=== PATIENT | female | born 1955 | race Caucasian/White ===

== ENCOUNTER 2024-02-14 13:05 | Outpatient (AMB) | payer MEDICARE, MEDICAID, SELFPAY ==
--- NOTE | 2024-02-14 13:34 | MHC.OFFVIS ---
Vital Signs 02/14/24 13:35 Height 5 ft 2.5 in Weight 231 lb 4 oz BMI 41.6 BP 128/78 Blood Pressure Location Rt brachial Position Sitting Pulse 89 Pulse Source Pulse Oximeter Pulse Oximetry (%) 96 Oxygen Delivery Method Room Air Intake Visit Reasons: osteoarthristis Allergies atorvastatin Allergy (Mild, Verified 02/14/24 13:23) fluid retention erythromycin base Allergy (Mild, Verified 02/14/24 13:23) Stomach Upset lactose Allergy (Mild, Verified 02/14/24 13:23) Stomach Upset latex Allergy (Mild, Verified 02/14/24 13:23) Itching Sulfa (Sulfonamide Antibiotics) Allergy (Mild, Verified 02/14/24 13:23) Nausea zolpidem [From Ambien] Allergy (Mild, Verified 02/14/24 13:23) Unknown house dust Allergy (Unknown, Verified 02/14/24 13:23) Unknown HPI HPI osteoarthristis: Details: Her pain at this time is controlled. She has history of osteoarthritis, trochanteric bursitis and fibromyalgia. [facility]LY [facility], [facility]1983 Medical History (Updated 02/14/24 @ 21:56 by Lewis Schroeder MD) Osteoarthritis Fibromyalgia Epicondylitis, lateral Bilateral carpal tunnel syndrome Memory deficit Varicose veins of both lower extremities Dyslipidemia LVH (left ventricular hypertrophy) Bilateral carotid artery stenosis Obesity Surgical History H/O left breast biopsy Hx of tonsillectomy H/O: knee surgery H/O cystoscopy Review of Systems Const All systems reviewed & are unremarkable except as noted in HPI and below Physical Exam Vital Signs: Last Vital Signs Pulse 89 02/14/24 13:35 BP 128/78 02/14/24 13:35 Pulse Ox 96 02/14/24 13:35 Oxygen Delivery Method Room Air 02/14/24 13:35 BMI result Body Mass Index 41.6 Const Other: General: Comfortable CVS: RRR Respiratory: clear to auscultation bilaterally. Good respiratory effort Skin: No lesions seen MSK: Heberden's nodes present. No synovitis. No tenderness. Bilateral trochanteric bursitis found. Good range of motion of upper extremities and lower extremities. Assessment & Plan Assessment & Plan (1) Trochanteric bursitis of both hips: Comment: Pain is controlled Code(s): M70.61 - Trochanteric bursitis, right hip; M70.62 - Trochanteric bursitis, left hip Category: Medical Plan: She will call office if she has constant pain from trochanteric bursitis requiring cortisone injection Return to clinic in 3 months [facility]ing [facility] Medications: New levothyroxine (Synthroid) 100 mcg PO DAILY 90 tabs 0RF zinc acetate (Galzin) 50 mg PO DAILY 30 caps 0RF famotidine (Pepcid) 20 mg PO DAILY 30 tabs 0RF Coding Level of Care Code Est Pt Level 3 (49026) Complex EM visit Add On G2211 Diagnoses Trochanteric bursitis of both hips M70.61; M70.62
[2024-02-14 13:35] VITALS: BP 128/78; PULSE 89; O2SAT 96; BMI 41.6
== END 2024-02-14 14:41 | disposition home or self-care (01) ==
PROVIDERS: PCP Physician Assistant Medical; Visit Provider Internal Medicine Rheumatology
DX: M70.61 Trochanteric bursitis, right hip (principal); M70.62 Trochanteric bursitis, left hip
CPT/HCPCS: 99213; G2211

== ENCOUNTER → 2024-02-14 13:05 | Outpatient (BNVA) | payer MEDICARE, MEDICAID, SELFPAY | PROVIDERS: PCP Physician Assistant Medical; Visit Provider Internal Medicine Rheumatology | DX: M70.61 Trochanteric bursitis, right hip (principal); M70.62 Trochanteric bursitis, left hip | CPT/HCPCS: 99212 ==

== ENCOUNTER 2024-05-14 14:28 | Outpatient (REF) | payer MEDICARE, MEDICAID, SELFPAY ==
[2024-05-14 18:35] LABS: MANUAL DIFF FLAG NO
--- OUTSIDE RECORDS SUMMARY | 2024-05-14 18:42 | XMS_ITS | Encounter Summary ---
Author Organization [facility] Address [address] [place] [address] Care Team Providers Care Band Cutting Machine Operator Name Role Phone Sydnee Miranda DO Primary Care Pro vider Unavailable Jonas Cano MD Primary Care Provider Unavailab Francisco Mobley MD Unavailable [phone] Sekou Griffith MD Primary Care Provider Jakub Wilson MD, PHD Unavailable Unava ilJuan Starkey PA-C Unavailable [phone] Padmaja Arenas MD Primary Care Provider [phone] Reason for Referral * EXTERNAL (Routine) - Authorized/Booked Specialty Diagnoses / Procedures Referred By Contshanthi t Referred To Contact Physical Therapy Diagnoses Spondylosis of cervical region without myelopathy or radiculopathy Primary osteoarthritis of both knees Procedures REFERRAL TO PHYSICAL THERAPY Jone Maloney MD [address] [place] [address] [facility]li[facility] Referral ID Status Reason Start Date Expiration Date V isits Requested Visits Authorized [id number] Authorized/B ooked 12/17/2019 02/16/2020 1 1 Reason for Visit * Reason Onset Date Comments Technology And Engineering Teacher Feedback 12/17/2019 [facility] Encounter Details Date Type Department Care Team Description 12/17/2019 Telephone [place] [address] Jone Maloney MD Technology And Engineering Teacher Feedback ([facility]) Social History Tobacco Use Types Packs/Day Years Used Date Smoking Tobacco: Former Smokeless Tobacco: Never Comments:quit at age 19, uns ure of exact date Alcohol Use Standard Drinks/Week Comments No 0 (1 standard drink = 0.6 oz pur e alcohol) Sex Assigned at Date Recorded Not on file Job Start Date Occupation Industry Not on file Not on file Not on file documented as of this encounter Miscellaneous Notes * Telephone Encounter - Juliana Janis - 12/17/2019 11:41 AM EST Please review this patients new referral request. The referral has been pended. Please complete thefollowing: If approved> sign order If denied>please give instructions and route to your practice nursing pool. Practice nurse should inform referrals and the patient if denied. ([facility] looking for updated order) documented in this encounter Plan of Treatment Not on file documented as of this encounter Visit Diagnoses Diagnosis Spondylosis of cervical region without myelopathy or radiculopathy- Primary Cervical spondylosis without myelopathy Primary osteoarthritis of both knees Primary localized osteoarthrosis, lower leg documented in this encounter Care Teams Band Cutting Machine Operator Relationship Specialty Start Date End Date Sydnee Miranda DO PCP - General Internal Medicine 12/25/17 06/16/20 Jonas Cano MD PCP - General Internal Medicine 06/17/20 10/05/20 Sekou Griffith MD PCP - General Internal Medicine 10/06/20 08/12/21 Padmaja Arenas MD [address] [address] PCP - General Internal Medicine 08/13/21 Francisco Winter MD Specialist Cardiology 09/29/20 Jakub Akers MD, PHD Specialist Neurosurgery 03/23/21 Juan Hammond PA-C [address] [address] Specialist Neurosurgery 03/23/21 documented as of this encounter
--- OUTSIDE RECORDS SUMMARY | 2024-05-14 18:42 | XMS_ITS | Encounter Summary ---
Author Organization [facility] Address [address] [place] [address] Care Team Providers Care C.O.D. 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 Audit Clerk Relationship Specialty Start Date End Date Sydnee Miranda DO PCP - General Internal Medicine 11/08/13 07/24/17 Jonas Cano MD PCP - General Internal Medicine 07/25/17 11/14/17 Virginia Gillis MD PCP - General Internal Medicine 11/15/17 12/24/17 Sydnee Miranda DO PCP - General Internal Medicine 12/25/17 06/16/20 Jonas Cano MD PCP - General Internal Medicine 06/17/20 10/05/20 Sekou Griffith MD PCP - General Internal Medicine 10/06/20 08/12/21 Padmaja Arenas MD 175 [place] [address] PCP - General Internal Medicine 08/13/21 Francisco Winter MD Specialist Cardiology 09/29/20 Jakub Akers MD, PHD Specialist Neurosurgery 03/23/21 Juan Hammond PA-C [address] [place] [address] Specialist Neurosurgery 03/23/21 documented as of this encounter
--- OUTSIDE RECORDS SUMMARY | 2024-05-14 18:42 | XMS_ITS | Encounter Summary ---
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
--- OUTSIDE RECORDS SUMMARY | 2024-05-14 18:42 | XMS_ITS | Encounter Summary ---
Author Organization [facility] Address [address] [place] [address] Care Team Providers Care Wooden Tank Erector Name Role Phone Sydnee Miranda DO Primary Care Pro vider Unavailable Jonas Cano MD Primary Care Provider Unavailab Virginia Ibarra MD Primary Care Provider Unavail able Sydnee Miranda DO Primary Care Pro vider Unavailable Jonas Cano MD Primary Care Provider Unavailab Francisco Mobley MD Unavailable Sekou Griffith MD Primary Care Provider LeighvaJakub Hooks MD, PHD Unavailable Unava ilJuan Starkey PA-C Unavailable [phone] Padmaja Arenas MD Primary Care Provider [phone] Encounter Details Date Type Department Care Team Description 06/05/2014 Release of Information Medical Records [address] [place] [address] Abstract, Provider Social History Tobacco Use Types Packs/Day Years Used Date Smoking Tobacco: Never Alcohol Use Standard Drinks/Week Comments Not Asked 0 (1 standard drink = 0.6 oz pur e alcohol) Sex Assigned at Date Recorded Not on file Job Start Date Occupation Industry Not on file Not on file Not on file documented as of this encounter Plan of Treatment Not on file documented as of this encounter Visit Diagnoses Not on filedocumented in this encounter Care Teams Wooden Tank Erector Relationship Specialty Start Date End Date Sydnee [...] Medicine 10/06/20 08/12/21 Padmaja Arenas MD 175 [place] [address] PCP - General Internal Medicine 08/13/21 Francisco Winter MD Specialist Cardiology 09/29/20 Jakub Akers MD, PHD Specialist Neurosurgery 03/23/21 Juan Hammond PA-C [address] [address] Specialist Neurosurgery 03/23/21 documented as of this encounter
--- OUTSIDE RECORDS SUMMARY | 2024-05-14 18:42 | XMS_ITS | Encounter Summary ---
Author Organization [facility] Address [address] [place] [address] Care Team Providers Care Rug Renovator Name Role Phone Francisco Winter MD Unavailable [phone] Jakub Akers MD, PHD Unavailable Unava ilable Juan Hammond PA-C Unavailable [phone] Padmaja Arenas MD Primary Care Provider [phone] Encounter Details Date Type Department Care Team Description 11/22/2021 Price Clerk Report Medical Records [address] [place] [address] Kristie Au Social History Tobacco Use Types Packs/Day Years Used Date Smoking Tobacco: Former Smokeless Tobacco: Never Comments:quit at age 19, uns ure of exact date Alcohol Use Standard Drinks/Week Comments No 0 (1 standard drink = 0.6 oz pur e alcohol) Sex Assigned at Date Recorded Not on file Job Start Date Occupation Industry Not on file Not on file Not on file COVID-19 Exposure Response Date Recorded In the last 10 days, have yo u been in contact with someone who was confirmed or suspected to have Coronavirus/COVID-19? No / Unsure 11/02/2021 2:27 PM EDT documented as of this encounter Plan of Treatment Not on file documented as of this encounter Visit Diagnoses Not on filedocumented in this encounter Care Teams Rug Renovator Relationship Specialty Start Date End Date Padmaja Arenas MD 175 [facility] [address] [place] [id number] PCP - General Internal Medicine 08/13/21 Francisco Winter MD Specialist Cardiology 09/29/20 Jakub Akers MD, PHD Specialist Neurosurgery 03/23/21 Juan Hammond PA-C [address] [place] [address] Specialist Neurosurgery 03/23/21 documented as of this encounter
--- OUTSIDE RECORDS SUMMARY | 2024-05-14 18:42 | XMS_ITS | Encounter Summary ---
Author Organization [facility] Address [address] [place] [address] Care Team Providers Care Gre Instructor Name Role Phone Sydnee Miranda DO Primary Care Pro vider Unavailable Jonas Cano MD Primary Care Provider Unavailab Virginia Ibarra MD Primary Care Provider Unavail able Sydnee Miranda DO Primary Care Pro vider Unavailable Jonas Cano MD Primary Care Provider Unavailab Francisco Mobley MD Unavailable [phone] Sekou Griffith MD Primary Care Provider LeighvaJakub Hooks MD, PHD Unavailable Unava ilJuan Starkey PA-C Unavailable [phone] Padmaja Arenas MD Primary Care Provider [phone] Encounter Details Date Type Department Care Team Description 07/01/2016 Orders Only Adult Medicine [address] [address] Sydnee Miranda DO Encounter for long-term (current) use of other medications (Primary Dx) Social History Tobacco Use Types Packs/Day Years [...] on file documented as of this encounter Results * ASSAY, DIHYDROCODEINONE (07/02/2016 2:59 PM EDT) HYDROCODONE UR GCMS Negative . ng/mL 07/11 11:08 AM EDT [facility] DocuTAP HYDROMORPHONE UR GCMS Negative . ng/mL 07/11/2016 11:08 AM EDT [facility] Comment: This test was developed and its performance characteristics determined by [facility]. ??It has not been cleared or approved by the Food and Drug Administration. Performed at: [facility] [address] [place] [address] ??[id number] Fur Glosser: Jorje Portillo MD, Phone: ??[phone] 07/02/2016 2:59 PM EDT 07/02/2016 2:59 PM EDT K[facility] DO LAB Performing Organization Address [facility] Co de Phone Number [facility] * OXYCODONE, URINE (07/02/2016 2:59 PM EDT) URINE OXYCODONE LEVEL NEGATIVE NEGATIVE 07/02/2016 4:32 PM EDT [facility] 07/02/2016 2:59 PM EDT 07/02/2016 2:59 PM EDT Kizoom DO LAB Performing Organization Address City/[facility]/ZIP Co de Phone Number [facility] [address] [place] [address] * DRUG OF ABUSE SCREEN (07/02/2016 2:59 PM EDT) AMPHETAMINE, URINE NEGATIVE NEGATIVE 07/02/2016 4:[address] [facility] BARBITURATES, URINE NEGATIVE NEGATIVE 07/02/2016 4:[address] [facility] BENZODIAZEPINE , URINE NEGATIVE NEGATIVE 07/02/2016 4:[address] [facility] COCAINE, URINE NEGATIVE NEGATIVE 07/02/2016 4:32 PM EDT [facility] OPIATES, URINE NEGATIVE NEGATIVE 07/02/2016 4:32 PM EDT [facility] MARIJUANA(THC) , URINE NEGATIVE NEGATIVE 07/02/2016 4:32 PM EDT [facility] 07/02/2016 2:59 PM EDT 07/02/2016 2:59 PM EDT Sydnee Dang DO LAB Performing Organization Address City/State/[facility] Co de Phone Number [facility] [address] [facility] documented in this encounter Visit Diagnoses Diagnosis Encounter for long-term (current) use of other medications- Primary documented in this encounter Care Teams Gre Instructor Relationship Specialty Start Date End Date Sydnee [...] Internal Medicine 10/06/20 08/12/21 Padmaja Arenas MD [address] [place] [address] PCP - General Internal Medicine 08/13/21 Francisco Winter MD Specialist Cardiology 09/29/20 Jakub Akers MD, PHD Specialist Neurosurgery 03/23/21 Juan Hammond PA-C [address] [address] Specialist Neurosurgery 03/23/21 documented as of this encounter
--- OUTSIDE RECORDS SUMMARY | 2024-05-14 18:42 | XMS_ITS | Encounter Summary ---
Author Organization [facility] Address [address] [place] [address] Care Team Providers Care Deli Cook Name Role Phone Sydnee Miranda DO Primary Care Pro vider Unavailable Jonas Cano MD Primary Care Provider Unavailab Virginia Ibarra MD Primary Care Provider Unavail able Sydnee Miranda DO Primary Care Pro vider Unavailable Jonas Cano MD Primary Care Provider Unavailab Francisco Mobley MD Unavailable Sekou Griffith MD Primary Care Provider Unavai Jakub Hahn MD, PHD Unavailable Unava ilable Juan Hammond PA-C Unavailable Padmaja Arenas MD Primary Care Provider [phone] Reason for Visit * Reason Onset Date Comments immunizations 09/30/2016 Encounter Details Date Type Department Care Team Description 09/30/2016 Telephone Adult Medicine [address] [address] Sydnee Miranda DO immunizations Social History Tobacco Use Types Packs/Day Years Used Date Smoking Tobacco: Never Alcohol Use Standard Drinks/Week Comments No 0 (1 standard drink = 0.6 oz pur e alcohol) Sex Assigned at Date Recorded Not on file Job Start Date Occupation Industry Not on file Not on file Not on file documented as of this encounter Miscellaneous Notes * Telephone Encounter - Payal Guevara - 09/30/2016 4:06 PM EDT The pt needs the procedure codes for pneumonia shots for medicare documented in this encounter Plan of Treatment Not on file documented as of this encounter Visit Diagnoses Not on filedocumented in this encounter Care Teams Deli Cook Relationship Specialty Start Date End Date Sydnee [...] Medicine 10/06/20 08/12/21 Padmaja Arenas MD 175 [place] [address] PCP - General Internal Medicine 08/13/21 Francisco Winter MD Specialist Cardiology 09/29/20 Jakub Akers MD, PHD Specialist Neurosurgery 03/23/21 Juan Hammond PA-C [address] [address] Specialist Neurosurgery 03/23/21 documented as of this encounter
--- OUTSIDE RECORDS SUMMARY | 2024-05-14 18:42 | XMS_ITS | Encounter Summary ---
Author Organization [facility] Address [address] [place] [address] Care Team Providers Care Revenue Audit Clerk Name Role Phone Sydnee Miranda DO Primary Care Pro vider Unavailable Jonas Cano MD Primary Care Provider Unavailab Virginia Ibarra MD Primary Care Provider Unavail able Sydnee Miranda DO Primary Care Pro vider Unavailable Jonas Cano MD Primary Care Provider Unavailab Francisco Mobley MD Unavailable [phone] Sekou Griffith MD Primary Care Provider UnavaJakub Hooks MD, PHD Unavailable Unava ilJuan Starkey PA-C Unavailable [phone] Padmaja Arenas MD Primary Care Provider [phone] Reason for Visit * Reason Onset Date Comments other 02/12/2014 spot on hand Encounter Details Date Type Department Care Team Description 02/12/2014 Telephone Adult Medicine [address] [address] Sydnee Miranda DO other (spot on hand) Social History Tobacco Use Types Packs/Day Years Used Date Smoking Tobacco: Never Alcohol Use Standard Drinks/Week Comments Not Asked 0 (1 standard drink = 0.6 oz pur e alcohol) Sex Assigned at Date Recorded Not on file Job Start Date Occupation Industry Not on file Not on file Not on file documented as of this encounter Miscellaneous Notes * Telephone Encounter - Carrie Luo R.N. - 02/12/2014 5:14 PM EST Pt has a purple spot on her palm at the MP joint, began at 2:30 , was dark purple and is now fading, pt has gotten these for years on fingers and lower extremeties, this one is fading faster than usual, (usually last about 24 hours this one is almost gone in 2 hours) has RA and sees rheumatology, has never mentioned this to any doctor Pt has not been ill, denies any N/V/D or fever, the spot was a single quarter sized area on her palm, not painful, had nl CSM Pt to after any unusual spots. Call if she has N/V/D or fever and mention this to MD when she is seen next . * Telephone Encounter - Laura Knott - 02/12/2014 2:39 PM EST Symptoms patient is presenting: Patient has a spot that is purple and raised located on the left hand between index and middle finger. She would like to know if she should be concerned. How long has patient had these symptoms?: PCP: Sydnee Smith [place] / [place] / Product Type: MEDICARE [id number] documented in this encounter Plan of Treatment Not on file documented as of this encounter Visit Diagnoses Not on filedocumented in this encounter Care Teams Revenue Audit Clerk Relationship Specialty Start Date End [...] Medicine 10/06/20 08/12/21 Padmaja Arenas MD 175 [facility] [address] [place] [address] PCP - General Internal Medicine 08/13/21 Francisco Winter MD Specialist Cardiology 09/29/20 Jakub Akers MD, PHD Specialist Neurosurgery 03/23/21 Juan Hammond PA-C [address] [address] Specialist Neurosurgery 03/23/21 documented as of this encounter
--- OUTSIDE RECORDS SUMMARY | 2024-05-14 18:42 | XMS_ITS | Encounter Summary ---
Author Organization [facility] Address [address] [place] [address] Care Team Providers Care Escalation Engineer Name Role Phone Sydnee Miranda DO Primary Care Pro vider Unavailable Jonas Cano MD Primary Care Provider Unavailab Virginia Ibarra MD Primary Care Provider Unavail able Sydnee Miranda DO Primary Care Pro vider Unavailable Jonas Cano MD Primary Care Provider Unavailab Francisco Mobley MD Unavailable Sekou Griffith MD Primary Care Provider LeighvaJakub Hooks MD, PHD Unavailable Unava ilJuan Starkey PA-C Unavailable [phone] Padmaja Arenas MD Primary Care Provider [phone] Reason for Visit * Reason Onset Date Comments Call From Pharmacy 07/29/2014 Encounter Details Date Type Department Care Team Description 07/29/2014 Telephone Adult [address] [address] Sydnee Miranda DO Call From Pharmacy Social History Tobacco Use Types Packs/Day Years Used Date Smoking Tobacco: Never Alcohol Use Standard Drinks/Week Comments No 0 (1 standard drink = 0.6 oz pur e alcohol) Sex Assigned at Date Recorded Not on file Job Start Date Occupation Industry Not on file Not on file Not on file documented as of this encounter Miscellaneous Notes * Telephone Encounter - Pamela Monae - 07/29/2014 4:02 PM EDT Caller requesting call back from provider: Is the caller the patient? NO If caller is not the patient, what is the callers name? Jasper Callers relationship to patient? [facility] If person calling is not the patient themselves, is there a verbal release in FYI or permanent comments for this person: no Reason for call back: Jasper called From [facility] stating a Concern of drug Interaction on patient's script for TRAMADOL HCl 50 MG TABLET DISPERSIBLE.Jasper stated that patient Allergic to codine. Caller offered to speak with the nurse for assistance: YES Response: Patient offered to speak with nurse for assistance and patient agreed. Message forwarded to nurse. documented in this encounter Plan of Treatment Not on file documented as of this encounter Visit Diagnoses Not on filedocumented in this encounter Care Teams Escalation Engineer Relationship Specialty Start Date End Date Sydnee [...] Medicine 10/06/20 08/12/21 Padmaja Arenas MD 175 [facility] [address] [place] [address] PCP - General Internal Medicine 08/13/21 Francisco Winter MD Specialist Cardiology 09/29/20 Jakub Akers MD, PHD Specialist Neurosurgery 03/23/21 Juan Hammond PA-C [address] [address] Specialist Neurosurgery 03/23/21 documented as of this encounter
--- OUTSIDE RECORDS SUMMARY | 2024-05-14 18:42 | XMS_ITS | Encounter Summary ---
Author Organization [facility] Address [address] [place] [address] Care Team Providers Care Backup Administrator Name Role Phone Sydnee Miranda DO Primary Care Pro vider Unavailable Jonas Cano MD Primary Care Provider Unavailab Virginia Ibarra MD Primary Care Provider Unavail able Sydnee Miranda DO Primary Care Pro vider Unavailable Jonas Cano MD Primary Care Provider Unavailab Francisco Mobley MD Unavailable Sekou Griffith MD Primary Care Provider LeighvaJakub Hooks MD, PHD Unavailable Unava ilJuan Starkey PA-C Unavailable [phone] Padmaja Arenas MD Primary Care Provider [phone] Encounter Details Date Type Department Care Team Description 12/20/2016 PNO Controlled Substance Contract Medical Records [address] [place] [address] Abstract, Provider Social History Tobacco Use Types Packs/Day Years Used Date Smoking Tobacco: Former Comments:quit at age 19, uns ure of [...] on filedocumented in this encounter Care Teams Backup Administrator Relationship Specialty Start Date End Date Sydnee [...] Medicine 10/06/20 08/12/21 Padmaja Arenas MD [address] [place] [address] PCP - General Internal Medicine 08/13/21 Francisco Winter MD Specialist Cardiology 09/29/20 Jakub Akers MD, PHD Specialist Neurosurgery 03/23/21 Juan Hammond PA-C 175 [facility] [address] [place] [address] Specialist Neurosurgery 03/23/21 documented as of this encounter
--- OUTSIDE RECORDS SUMMARY | 2024-05-14 18:42 | XMS_ITS | Encounter Summary ---
Author Organization [facility] Address [address] [place] [address] Care Team Providers Care Hands Hanger Name Role Phone Sydnee Miranda DO Primary Care Pro vider Unavailable Jonas Cano MD Primary Care Provider Unavailab Virginia Ibarra MD Primary Care Provider Unavail able Sydnee Miranda DO Primary Care Pro vider Unavailable Jonas Cano MD Primary Care Provider Unavailab Francisco Mobley MD Unavailable [phone] Sekou Griffith MD Primary Care Provider LeighvaJakub Hooks MD, PHD Unavailable Unava ilJuan Starkey PA-C Unavailable [phone] Padmaja Arenas MD Primary Care Provider [phone] Encounter Details Date Type Department Care Team Description 09/14/2016 Orders Only Adult Medicine [address] [address] Sydnee Miranda DO Social History Tobacco Use Types Packs/Day Years [...] on filedocumented in this encounter Care Teams Hands Hanger Relationship Specialty Start Date End Date Sydnee [...] Medicine 10/06/20 08/12/21 Padmaja Arenas MD [address] [place] [address] PCP - General Internal Medicine 08/13/21 Francisco Winter MD Specialist Cardiology 09/29/20 Jakub Akers MD, PHD Specialist Neurosurgery 03/23/21 Juan Hammond PA-C 175 [facility] [address] [place] [address] Specialist Neurosurgery 03/23/21 documented as of this encounter
--- OUTSIDE RECORDS SUMMARY | 2024-05-14 18:42 | XMS_ITS | Encounter Summary ---
Author Organization [facility] Address [address] [place] [address] Care Team Providers Care Fur Floor Worker Name Role Phone Sydnee Miranda DO Primary Care Pro vider Unavailable Jonas Cano MD Primary Care Provider Unavailab Virginia Ibarra MD Primary Care Provider Unavail able Sydnee Miranda DO Primary Care Pro vider Unavailable Jonas Cano MD Primary Care Provider Unavailab Francisco Mobley MD Unavailable Sekou Griffith MD Primary Care Provider LeighvaJakub Hooks MD, PHD Unavailable Unava ilJuan Starkey PA-C Unavailable [phone] Padmaja Arenas MD Primary Care Provider [phone] Encounter Details Date Type Department Care Team Description 12/27/2016 Railroad Cook Report Medical Records [address] [place] [address] Kaden Bertrand MD Social History Tobacco Use [...] on filedocumented in this encounter Care Teams Fur Floor Worker Relationship Specialty Start Date End Date Sydnee [...] Medicine 10/06/20 08/12/21 Padmaja Arenas MD [address] [place] [address] PCP - General Internal Medicine 08/13/21 Francisco Winter MD Specialist Cardiology 09/29/20 Jakub Akers MD, PHD Specialist Neurosurgery 03/23/21 Juan Hammond PA-C 175 [facility] [address] [place] [address] Specialist Neurosurgery 03/23/21 documented as of this encounter
--- OUTSIDE RECORDS SUMMARY | 2024-05-14 18:42 | XMS_ITS | Encounter Summary ---
Author Organization [facility] Address [address] [place] [address] Care Team Providers Care Soft Boarder Name Role Phone Sydnee Miranda DO Primary Care Pro vider Unavailable Jonas Cano MD Primary Care Provider Unavailab Francisco Mobley MD Unavailable [phone] Sekou Griffith MD Primary Care Provider Jakub Wilson MD, PHD Unavailable Unava ilJuan Starkey PA-C Unavailable Padmaja Arenas MD Primary Care Provider [phone] Encounter Details Date Type Department Care Team Description 04/20/2020 Food Service Lead Report Medical Records [address] [place] [address] Zuleyka Johnson MD Social History Tobacco Use Types Packs/Day [...] Exposure Response Date Recorded In the last month, have you been in contact with someone who was confirmed or suspected to have Coronavirus / COVID-19? No / Unsure 04/23/2020 1:07 PM EDT documented as of this encounter Plan of Treatment Not on file documented as of this encounter Visit Diagnoses Not on filedocumented in this encounter Care Teams Soft Boarder Relationship Specialty Start Date End Date Sydnee Miranda DO PCP - General Internal Medicine 12/25/17 06/16/20 Jonas Cano MD PCP - General Internal Medicine 06/17/20 10/05/20 Sekou Griffith MD PCP - General Internal Medicine 10/06/20 08/12/21 Padmaja Arenas MD 175 [place] [address] PCP - General Internal Medicine 08/13/21 Francisco Winter MD Specialist Cardiology 09/29/20 Jakub Akers MD, PHD Specialist Neurosurgery 03/23/21 Juan Hammond PA-C 175 [facility] [address] [place] [address] Specialist Neurosurgery 03/23/21 documented as of this encounter
--- OUTSIDE RECORDS SUMMARY | 2024-05-14 18:42 | XMS_ITS | Encounter Summary ---
Author Organization [facility] Address [address] [place] [address] Care Team Providers Care Technicians And Trades Workers Name Role Phone Sydnee Miranda DO Primary Care Pro vider Unavailable Jonas Cano MD Primary Care Provider Unavailab Virginia Ibarra MD Primary Care Provider Unavail able Sydnee Miranda DO Primary Care Pro vider Unavailable Jonas Cano MD Primary Care Provider Unavailab Francisco Mobley MD Unavailable [phone] Sekou Griffith MD Primary Care Provider LeighvaJakub Hooks MD, PHD Unavailable Unava ilable Juan Hammond PA-C Unavailable [phone] Padmaja Arenas MD Primary Care Provider [phone] Encounter Details Date Type Department Care Team Description 01/10/2014 Release of Information Medical Records [address] [place] [address] Abstract, Provider Social History Tobacco Use Types [...] on filedocumented in this encounter Care Teams Technicians And Trades Workers Relationship Specialty Start Date End Date Sydnee [...] Medicine 10/06/20 08/12/21 Padmaja Arenas MD [address] [place] [address] PCP - General Internal Medicine 08/13/21 Francisco Winter MD Specialist Cardiology 09/29/20 Jakub Akers MD, PHD Specialist Neurosurgery 03/23/21 Juan Hammond PA-C [address] [address] Specialist Neurosurgery 03/23/21 documented as of this encounter
--- OUTSIDE RECORDS SUMMARY | 2024-05-14 18:42 | XMS_ITS | Encounter Summary ---
Author Organization [facility] Address [address] [place] [address] Care Team Providers Care Cheese Factory Worker Name Role Phone Sydnee Miranda DO Primary Care Pro vider Unavailable Jonas Cano MD Primary Care Provider Unavailab Francisco Mobley MD Unavailable [phone] Sekou Griffith MD Primary Care Provider Jakub Wilson MD, PHD Unavailable Unava ilJuan Starkey PA-C Unavailable [phone] Padmaja Arenas MD Primary Care Provider [phone] Encounter Details Date Type Department Care Team Description 02/18/2020 Release of Information Medical Records [address] [place] [id number] [place] [address] Social History Tobacco Use Types Packs/Day Years [...] have Coronavirus / COVID-19? No / Unsure 01/20/2020 1:38 PM EST documented as of this encounter Plan of Treatment Not on file documented as of this encounter Visit Diagnoses Not on filedocumented in this encounter Care Teams Cheese Factory Worker Relationship Specialty Start Date End Date Sydnee Miranda DO PCP - General Internal Medicine 12/25/17 06/16/20 Jonas Cano MD PCP - General Internal Medicine 06/17/20 10/05/20 Sekou Griffith MD PCP - General Internal Medicine 10/06/20 08/12/21 Padmaja Arenas MD 175 [place] [address] PCP - General Internal Medicine 08/13/21 Francisco Winter MD Specialist Cardiology 09/29/20 Jakub Akers MD, PHD Specialist Neurosurgery 03/23/21 Juan Hammond PA-C 175 [facility] [address] [place] [address] Specialist Neurosurgery 03/23/21 documented as of this encounter
--- OUTSIDE RECORDS SUMMARY | 2024-05-14 18:42 | XMS_ITS | Encounter Summary ---
Author Organization [facility] Address [address] [place] [address] Care Team Providers Care Crumb Packer Name Role Phone Francisco Winter MD Unavailable [phone] Jakub Akers MD, PHD Unavailable Unava ilable Juan Hammond PA-C Unavailable [phone] Padmaja Arenas MD Primary Care Provider [phone] Encounter Details Date Type Department Care Team Description 12/14/2021 Truck Guard Report Medical Records [address] [place] [address] Abstract, Provider Social History Tobacco Use Types [...] on filedocumented in this encounter Care Teams Crumb Packer Relationship Specialty Start Date End Date Padmaja Arenas MD [address] [id number] PCP - General Internal Medicine 08/13/21 Francisco Winter MD Specialist Cardiology 09/29/20 Jakub Akers MD, PHD Specialist Neurosurgery 03/23/21 Juan Hammond PA-C [address] [id number] Specialist Neurosurgery 03/23/21 documented as of this encounter
--- OUTSIDE RECORDS SUMMARY | 2024-05-14 18:42 | XMS_ITS | Encounter Summary ---
Author Organization [facility] Address [address] [place] [address] Care Team Providers Care Weft Straightener Name Role Phone Sydnee Miranda DO Primary [...] Padmaja Arenas MD Primary Care Provider [phone] Encounter Details Date Type Department Care Team Description 10/17/2016 Transfer Records Medical Records [address] [place] [address] Abstract, Provider Social History Tobacco Use Types [...] on filedocumented in this encounter Care Teams Weft Straightener Relationship Specialty Start Date End Date Sydnee [...] Medicine 10/06/20 08/12/21 Padmaja Arenas MD 175 [place] [address] PCP - General Internal Medicine 08/13/21 Francisco Winter MD Specialist Cardiology 09/29/20 Jakub Akers MD, PHD Specialist Neurosurgery 03/23/21 Juan Hammond PA-C [address] [address] Specialist Neurosurgery 03/23/21 documented as of this encounter
--- OUTSIDE RECORDS SUMMARY | 2024-05-14 18:42 | XMS_ITS | Encounter Summary ---
Author Organization [facility] Address [address] [place] [address] Care Team Providers Care Junior Technical Writer Name Role Phone Sydnee Miranda DO Primary Care Pro vider Unavailable Jonas Cano MD Primary Care Provider Unavailab Francisco Mobley MD Unavailable [phone] Sekou Griffith MD Primary Care Provider LeighvaJakub Hooks MD, PHD Unavailable Unava ilable Juan Hammond PA-C Unavailable Padmaja Arenas MD Primary Care Provider [phone] Reason for Referral * EXTERNAL (Routine) - Authorized/Booked Specialty Diagnoses / Procedures Referred By Contac t Referred To Contact Physical Therapy Diagnoses 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 Primary osteoarthritis of both knees Procedures REFERRAL TO PHYSICAL THERAPY Jone Mlaoney MD [address] [place] [address] Rehab., [facility] Referral ID Status Reason Start Date Expiration Date V isits Requested Visits Authorized SEE NOTE Authorized/B ooked 03/16/2020 06/13/2020 1 1 Reason for Visit * Reason Onset Date Comments Wire Drawer Feedback 03/16/2020 [facility] Encounter Details Date Type Department Care Team Description 03/16/2020 Telephone [facility] [place] [address] Jone Maloney MD Wire Drawer Feedback ([facility]) Social History Tobacco Use Types Packs/Day Years [...] encounter Miscellaneous Notes * Telephone Encounter - Lorna Lindsey - 03/16/2020 10:02 AM EST [facility] Carcamo is requesting an updated order for the patient's appointment on 03/25/2020. I have pended youa new order. Please sign when able. 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- Primary Primary osteoarthritis of both knees Primary localized osteoarthrosis, lower leg documented in this encounter Care Teams Junior Technical Writer Relationship Specialty Start Date End Date Sydnee Miranda DO PCP - General Internal Medicine 12/25/17 06/16/20 Jonas Cano MD PCP - General Internal Medicine 06/17/20 10/05/20 Sekou Griffith MD PCP - General Internal Medicine 10/06/20 08/12/21 Padmaja Arenas MD [address] [address] PCP - General Internal Medicine 08/13/21 Francisco Winter MD Specialist Cardiology 09/29/20 Jakub Akers MD, PHD Specialist Neurosurgery 03/23/21 Juan Hammond PA-C 175 [facility] [address] [place] [address] Specialist Neurosurgery 03/23/21 documented as of this encounter
--- OUTSIDE RECORDS SUMMARY | 2024-05-14 18:42 | XMS_ITS | Clinical Summary ---
Author Organization [facility] Address [address] [place] [address] Care Team Providers Care Senior Communications Engineer Name Role Phone Sydnee Miranda DO [...] age to complete this topic Care Teams Senior Communications Engineer Relationship Specialty Start Date End Date Sydnee Miranda DO PCP - General Manager Report 11/22/19
--- OUTSIDE RECORDS SUMMARY | 2024-05-14 18:43 | XMS_ITS | Encounter Summary ---
Author Organization [facility] Address [address] [place] [address] Care Team Providers Care Software Testing Specialist Name Role Phone Sydnee Miranda DO Primary Care Pro vider Unavailable Jonas Cano MD Primary Care Provider Unavailab Francisco Mobley MD Unavailable [phone] Sekou Griffith MD Primary Care Provider LeighvaJakub Hooks MD, PHD Unavailable Unava ilJuan Starkey PA-C Unavailable [phone] Padmaja Arenas MD Primary Care Provider [phone] Reason for Referral * EXTERNAL (Routine) - Closed Specialty Diagnoses / Procedures Referred By Contshanthi t Referred To Contact Physical Therapy Diagnoses Fibromyalgia Spondylosis of cervical region without myelopathy or radiculopathy Procedures REFERRAL TO PHYSICAL THERAPY Jone Maloney MD [address] [place] [address] [facility] Referral ID Status Reason Start Date Expiration Date Visits Re quested Visits Authorized SEE NOTE Closed 10/29/2019 01/28/2020 1 1 Reason for Visit * Reason Onset Date Comments Rivet Sorter Feedback 10/29/2019 [facility] Encounter Details Date Type Department Care Team Description 10/29/2019 Telephone [facility] [place] [address] Jone Maloney MD Rivet Sorter Feedback ([facility]) Social History Tobacco Use Types [...] have Coronavirus / COVID-19? No / Unsure 10/22/2019 2:04 PM EDT documented as of this encounter Miscellaneous Notes * Telephone Encounter - Karla Cui - 10/29/2019 10:34 AM EDT [facility] Wong is requesting an updated order for the patient's appointment on 11/26/19. I have pended you a new order. Please sign when able. Thank you Karla Referrals Clerical And Administrative Workers documented in this encounter Plan of Treatment Not on file documented as of this encounter Visit Diagnoses Diagnosis Fibromyalgia- Primary Mylagia and myositis, unspecified Spondylosis of cervical region without myelopathy or radiculopathy Cervical spondylosis without myelopathy documented in this encounter Care Teams Software Testing Specialist Relationship Specialty Start Date End Date Sydnee Miranda DO PCP - General Internal Medicine 12/25/17 06/16/20 Jonas Cano MD PCP - General Internal Medicine 06/17/20 10/05/20 Sekou Griffith MD PCP - General Internal Medicine 10/06/20 08/12/21 Padmaja Arenas MD [address] [address] PCP - General Internal Medicine 08/13/21 Francisco Winter MD Specialist Cardiology 09/29/20 Jakub Akers MD, PHD Specialist Neurosurgery 03/23/21 Juan Hammond PA-C [address] [address] Specialist Neurosurgery 03/23/21 documented as of this encounter
--- OUTSIDE RECORDS SUMMARY | 2024-05-14 18:43 | XMS_ITS | Encounter Summary ---
Author Organization [facility] Address [address] [place] [address] Care Team Providers Care Social Organization Professor Name Role Phone Sydnee Miranda DO Primary Care Pro vider Unavailable Jonas Cano MD Primary Care Provider Unavailab Francisco Mobley MD Unavailable [phone] Sekou Griffith MD Primary Care Provider Jakub Wilson MD, PHD Unavailable Unava ilJuan Starkey PA-C Unavailable [phone] Padmaja Arenas MD Primary Care Provider [phone] Encounter Details Date Type Department Care Team Description 11/14/2019 Component Design Engineer Report Medical Records [address] [place] [address] Abstract, Provider Social History Tobacco Use Types [...] on filedocumented in this encounter Care Teams Social Organization Professor Relationship Specialty Start Date End Date Sydnee Miranda DO PCP - General Internal Medicine 12/25/17 06/16/20 Jonas Cano MD PCP - General Internal Medicine 06/17/20 10/05/20 Sekou Griffith MD PCP - General Internal Medicine 10/06/20 08/12/21 Padmaja Arenas MD [address] [place] [address] PCP - General Internal Medicine 08/13/21 Francisco Winter MD Specialist Cardiology 09/29/20 Jakub Akers MD, PHD Specialist Neurosurgery 03/23/21 Juan Hammond PA-C [address] [place] [address] Specialist Neurosurgery 03/23/21 documented as of this encounter
--- OUTSIDE RECORDS SUMMARY | 2024-05-14 18:43 | XMS_ITS | Encounter Summary ---
Author Organization [facility] Address [address] [place] [address] Care Team Providers Care Industrial Truck Driver Name Role Phone Syndee Miranda DO Primary Care Pro vider Unavailable Jonas Cano MD Primary Care Provider Unavailab Virginia Ibarra MD Primary Care Provider Unavail able Sydnee Miranda DO Primary Care Pro vider Unavailable Jonas Cano MD Primary Care Provider Unavailab Francisco Mobley MD Unavailable [phone] Sekou Griffith MD Primary Care Provider LeighvaJakub Hooks MD, PHD Unavailable Unava ilJuan Starkey PA-C Unavailable [phone] Padmaja Arenas MD Primary Care Provider [phone] Reason for Referral * Specialist (Routine) - Authorized/Booked Specialty Diagnoses / Procedures Referred By Tavo t Referred To Contact Nutrition Procedures REFERRAL TO Brodie Sarmiento PA-C [address] [place] [address] External Nutrition Referral ID Status Reason Start Date Expiration Date V isits Requested Visits Authorized SEE NOTE Authorized/B ooked 11/27/2014 02/28/2015 1 1 Reason for Visit * Reason Onset Date Comments Provider Call Back 11/27/2014 Encounter Details Date Type Department Care Team Description 11/27/2014 Telephone Adult Medicine [address] [id number] Sydnee Miranda, DO Provider Call Back Social History Tobacco Use Types Packs/Day Years Used Date Smoking Tobacco: Never Alcohol Use Standard Drinks/Week Comments No 0 (1 standard drink = 0.6 oz pur e alcohol) Sex Assigned at Date Recorded Not on file Job Start Date Occupation Industry Not on file Not on file Not on file documented as of this encounter Miscellaneous Notes * Telephone Encounter - Cassy Pfeiffer M.A. - 12/08/2014 1:40 PM EST This phone Hangs up as soon As it picks up. Please get number where we can call back pt. * Telephone Encounter - Brodie Parker PA-C - 12/02/2014 4:17 PM EDT She can go where her insurance accepts * Telephone Encounter - Sima Yuan - 11/28/2014 3:39 PM EDT Pt calling back she says [facility] is not appropiate for her because of parking unavailability, is there somewhere else she can go? Pt very upset about this. * Telephone Encounter - Tiffanie Mullins M.A. - 11/27/2014 4:45 PM EDT Left a message for the pt to call back Ext [phone] * Telephone Encounter - Brodie Parker PA-C - 11/27/2014 3:16 PM EDT She can go where her insurance accepts. * Telephone Encounter - Laura Knott - 11/27/2014 1:57 PM EDT Caller requesting call back from provider: Is the caller the patient? YES If caller is not the patient, what is the callers name? N/A Callers relationship to patient? N/A If person calling is not the patient themselves, is there a verbal release in FYI or permanent comments for this person: Reason for call back: Patient was referred to a camp advisor at the [facility] by brodie parker. Patient would like to know if she can be referred somewhere else. Requesting a call back. Caller offered to speak with the nurse for assistance: YES Response: Patient offered to speak with nurse for assistance and patient agreed. Message forwarded to nurse. documented in this encounter Plan of Treatment Not on file documented as of this encounter Visit Diagnoses Not on filedocumented in this encounter Care Teams Industrial Truck Driver Relationship Specialty Start Date End Date Sydnee [...] Medicine 10/06/20 08/12/21 Padmaja Arenas MD 175 [facility] [address] [place] [address] PCP - General Internal Medicine 08/13/21 Francisco Winter MD Specialist Cardiology 09/29/20 Jakub Akers MD, PHD Specialist Neurosurgery 03/23/21 Juan Hammond PA-C [address] [address] Specialist Neurosurgery 03/23/21 documented as of this encounter
--- OUTSIDE RECORDS SUMMARY | 2024-05-14 18:43 | XMS_ITS | Encounter Summary ---
Author Organization [facility] Address [address] [place] [address] Care Team Providers Care Director Industrial Name Role Phone Sydnee Miranda DO Primary [...] Padmaja Arenas MD Primary Care Provider [phone] Encounter Details Date Type Department Care Team Description 09/04/2015 Transfer Records Medical Records [address] [place] [address] Abstract, Provider Social History Tobacco Use Types [...] on filedocumented in this encounter Care Teams Director Industrial Relationship Specialty Start Date End Date Sydnee [...] Medicine 10/06/20 08/12/21 Padmaja Arenas MD [address] [place] [address] PCP - General Internal Medicine 08/13/21 Francisco Winter MD Specialist Cardiology 09/29/20 Jakub Akers MD, PHD Specialist Neurosurgery 03/23/21 Juan Hammond PA-C [address] [address] Specialist Neurosurgery 03/23/21 documented as of this encounter
--- OUTSIDE RECORDS SUMMARY | 2024-05-14 18:43 | XMS_ITS | Encounter Summary ---
Author Organization [facility] Address [address] [place] [address] Care Team Providers Care Cognos Report Developer Name Role Phone Sydnee Miranda DO Primary Care Pro vider Unavailable Jonas Cano MD Primary Care Provider Unavailab Francisco Mobley MD Unavailable [phone] Sekou Griffith MD Primary Care Provider Jakub Wilson MD, PHD Unavailable Unava ilJuan Starkey PA-C Unavailable Padmaja Arenas MD Primary Care Provider [phone] Encounter Details Date Type Department Care Team Description 07/18/2018 Risk Engineer Report Medical Records [address] [place] [address] Juliet Porter MD Social History Tobacco Use Types Packs/Day [...] on filedocumented in this encounter Care Teams Cognos Report Developer Relationship Specialty Start Date End Date Sydnee Miranda DO PCP - General Internal Medicine 12/25/17 06/16/20 Jonas Cano MD PCP - General Internal Medicine 06/17/20 10/05/20 Sekou Griffith MD PCP - General Internal Medicine 10/06/20 08/12/21 Padmaja Arenas MD [address] [place] [address] PCP - General Internal Medicine 08/13/21 Francisco Winter MD Specialist Cardiology 09/29/20 Jakub Akers MD, PHD Specialist Neurosurgery 03/23/21 Juan Hammond PA-C [address] [place] [address] Specialist Neurosurgery 03/23/21 documented as of this encounter
--- OUTSIDE RECORDS SUMMARY | 2024-05-14 18:43 | XMS_ITS | Encounter Summary ---
Author Organization [facility] Address [address] [place] [address] Care Team Providers Care Helium Arc Welder Name Role Phone Sydnee Miranda DO Primary Care Pro vider Unavailable Jonas Cano MD Primary Care Provider Unavailab Francisco Mobley MD Unavailable Sekou Griffith MD Primary Care Provider Jakub Wilson MD, PHD Unavailable Unava ilJuan Starkey PA-C Unavailable [phone] Padmaja Arenas MD Primary Care Provider [phone] Encounter Details Date Type Department Care Team Description 03/23/2018 Delivery Lead Report Medical Records [address] [place] [address] Juan Baker MD Social History Tobacco Use Types Packs/Day [...] on filedocumented in this encounter Care Teams Helium Arc Welder Relationship Specialty Start Date End Date Sydnee Miranda DO PCP - General Internal Medicine 12/25/17 06/16/20 Jonas Cano MD PCP - General Internal Medicine 06/17/20 10/05/20 Sekou Griffith MD PCP - General Internal Medicine 10/06/20 08/12/21 Padmaja Arenas MD [address] [place] [address] PCP - General Internal Medicine 08/13/21 Francisco Winter MD Specialist Cardiology 09/29/20 Jakub Akers MD, PHD Specialist Neurosurgery 03/23/21 Juan Hammond PA-C [address] [place] [address] Specialist Neurosurgery 03/23/21 documented as of this encounter
--- OUTSIDE RECORDS SUMMARY | 2024-05-14 18:43 | XMS_ITS | Encounter Summary ---
Author Organization [facility] Address [address] [place] [address] Care Team Providers Care Gymnastics Coach Or Instructor Name Role Phone Sydnee Miranda DO Primary Care Pro vider Unavailable Jonas Cano MD Primary Care Provider Unavailab Virginia Ibarra MD Primary Care Provider Unavail able Sydnee Miranda DO Primary Care Pro vider Unavailable Jonas Cano MD Primary Care Provider Unavailab Francisco Mobley MD Unavailable [phone] Sekou Griffith MD Primary Care Provider Jakub Wilson MD, PHD Unavailable Unava ilJuan Starkey PA-C Unavailable [phone] Padmaja Arenas MD Primary Care Provider [phone] Encounter Details Date Type Department Care Team Description 01/11/2016 Wellness Visit Medical Records [address] [place] [address] Sydnee Miranda DO Social History Tobacco Use [...] on filedocumented in this encounter Care Teams Gymnastics Coach Or Instructor Relationship Specialty Start Date End Date [...] Medicine 10/06/20 08/12/21 Padmaja Arenas MD [address] [place] [address] PCP - General Internal Medicine 08/13/21 Francisco Winter MD Specialist Cardiology 09/29/20 Jakub Akers MD, PHD Specialist Neurosurgery 03/23/21 Juan Hammond PA-C 175 [facility] [address] [place] [address] Specialist Neurosurgery 03/23/21 documented as of this encounter
--- OUTSIDE RECORDS SUMMARY | 2024-05-14 18:43 | XMS_ITS | Encounter Summary ---
Author Organization [facility] Address [address] [place] [address] Care Team Providers Care Country Printer Name Role Phone Sydnee Miranda DO Primary Care Pro vider Unavailable Jonas Cano MD Primary Care Provider Unavailab Virginia Ibarra MD Primary Care Provider Unavail able Sydnee Miranda DO Primary Care Pro vider Unavailable Jonas Cano MD Primary Care Provider Unavailab Francisco Mobley MD Unavailable [phone] Sekou Griffith MD Primary Care Provider LeighvaJakub Hooks MD, PHD Unavailable Unava ilJuan Starkey PA-C Unavailable [phone] Padmaja Arenas MD Primary Care Provider [phone] Encounter Details Date Type Department Care Team Description 03/01/2017 [facility] Medical Records [address] [place] [address] Abstract, Provider Social History Tobacco Use Types [...] on filedocumented in this encounter Care Teams Country Printer Relationship Specialty Start Date End Date Sydnee [...] Medicine 10/06/20 08/12/21 Padmaja Arenas MD [address] [place] [address] PCP - General Internal Medicine 08/13/21 Francisco Winter MD Specialist Cardiology 09/29/20 Jakub Akers MD, PHD Specialist Neurosurgery 03/23/21 Juan Hammond PA-C 175 [facility] [address] [place] [address] Specialist Neurosurgery 03/23/21 documented as of this encounter
--- OUTSIDE RECORDS SUMMARY | 2024-05-14 18:43 | XMS_ITS | Encounter Summary ---
Author Organization [facility] Address [address] [place] [address] Care Team Providers Care Aboriginal Community Council Member Name Role Phone Sydnee Miranda DO Primary Care Pro vider Unavailable Jonas Cano MD Primary Care Provider Unavailab Francisco Mobley MD Unavailable [phone] Sekou Griffith MD Primary Care Provider Jakub Wilson MD, PHD Unavailable Unava ilJuan Starkye PA-C Unavailable [phone] Padmaja Arenas MD Primary Care Provider [phone] Encounter Details Date Type Department Care Team Description 11/21/2019 Sweatband Maker Report Medical Records [address] [place] [address] Juan Hammond PA-C [address] [address] Social History Tobacco Use Types Packs/Day Years [...] on filedocumented in this encounter Care Teams Aboriginal Community Council Member Relationship Specialty Start Date End Date Sydnee Miranda DO PCP - General Internal Medicine 12/25/17 06/16/20 Jonas Cano MD PCP - General Internal Medicine 06/17/20 10/05/20 Skeou Griffith MD PCP - General Internal Medicine 10/06/20 08/12/21 Padmaja Arenas MD [address] [address] PCP - General Internal Medicine 08/13/21 Francisco Winter MD Specialist Cardiology 09/29/20 Jakub Akers MD, PHD Specialist Neurosurgery 03/23/21 Juan Hammond PA-C [address] [address] Specialist Neurosurgery 03/23/21 documented as of this encounter
--- OUTSIDE RECORDS SUMMARY | 2024-05-14 18:43 | XMS_ITS | Encounter Summary ---
Author Organization [facility] Address [address] [place] [address] Care Team Providers Care Admissions Officer Name Role Phone Francisco Winter MD Unavailable [phone] Sekou Griffith MD Primary Care Provider Jakub Wilson MD, PHD Unavailable Unava ilJuan Starkey PA-C Unavailable [phone] Padmaja Arenas MD Primary Care Provider [phone] Reason for Visit * Reason Onset Date Comments refill request 06/07/2021 Encounter Details Date Type Department Care Team Description 06/07/2021 Refill Adult Medicine [address] [address] Sekou Griffith MD refill request Social History Tobacco Use Types Packs/Day Years [...] suspected to have Coronavirus/COVID-19? No / Unsure 05/17/2021 4:35 PM EDT documented as of this encounter Miscellaneous Notes * Telephone Encounter - Qiana Callejas M.A. - 06/07/2021 4:23 PM EDT Lab Results Component Value Date TSH 2.14 05/17/2021 ESSIE 10/27/20 NOV 07/14/21 * Telephone Encounter - Loren Henry - 06/07/2021 2:49 PM EDT Patient would like script to be: E-PRESCRIBED/FAXED TO PHARMACY WHEN WAS THE PATIENT'S LAST APPOINTMENT IN ADULT MEDICINE? 10/27/20 WHEN WAS THE LAST TIME THE PATIENT SAW THEIR PCP? Same as above Does patient have an upcoming appointment? Yes 07/14/21 (THE MEDICATION REQUESTED IS ON THE MED LIST ABOVE) All of the medications requested were on the CURRENT MEDS list Did you check the Pharmacy information above?: YES Patient wants: 30 -day supply Is this a mail order prescription request ? NO If the refill is from a FAXED refill request what is the RX # listed on the fax? N/A Patients current insurance carrier is: [place] / [place] / Product Type: MEDICARE [id number] documented in this encounter Plan of Treatment Not on file documented as of this encounter Visit Diagnoses Not on filedocumented in this encounter Care Teams Admissions Officer Relationship Specialty Start Date End Date Sekou Griffith MD PCP - General Internal Medicine 10/06/20 08/12/21 Padmaja Arenas MD [address] [place] [address] PCP - General Internal Medicine 08/13/21 Francisco Winter MD Specialist Cardiology 09/29/20 Jakub Akers MD, PHD Specialist Neurosurgery 03/23/21 Juan Hammond PA-C [address] [place] [address] Specialist Neurosurgery 03/23/21 documented as of this encounter
--- OUTSIDE RECORDS SUMMARY | 2024-05-14 18:43 | XMS_ITS | Encounter Summary ---
Author Organization [facility] Address [address] [place] [address] Care Team Providers Care Currency Exchange Specialist Name Role Phone Francisco Winter MD Unavailable [phone] Sekou Griffith MD Primary Care Provider Jakub Wilson MD, PHD Unavailable Unava ilJuan Starkey PA-C Unavailable [phone] Padmaja Arenas MD Primary Care Provider [phone] Encounter Details Date Type Department Care Team Description 11/10/2020 Labor Relations Representative Report Medical Records [address] [place] [address] Glenna Jaimes Social History Tobacco Use Types Packs/Day Years [...] have Coronavirus / COVID-19? No / Unsure 10/27/2020 11:06 AM EDT documented as of this encounter Plan of Treatment Not on file documented as of this encounter Visit Diagnoses Not on filedocumented in this encounter Care Teams Currency Exchange Specialist Relationship Specialty Start Date End Date Sekou Griffith MD PCP - General Internal Medicine 10/06/20 08/12/21 Padmaja Arenas MD 175 [facility] [address] [place] [address] PCP - General Internal Medicine 08/13/21 Francisco Winter MD Specialist Cardiology 09/29/20 Jakub Akers MD, PHD Specialist Neurosurgery 03/23/21 Juan Hammond PA-C [address] [place] [address] [place] [address] Specialist Neurosurgery 03/23/21 documented as of this encounter
--- OUTSIDE RECORDS SUMMARY | 2024-05-14 18:43 | XMS_ITS | Encounter Summary ---
Author Organization [facility] Address [address] [place] [address] Care Team Providers Care Bull Gang Worker Name Role Phone Francisco Winter MD Unavailable [phone] Sekou Griffith MD Primary Care Provider Jakub Wilson MD, PHD Unavailable Unava ilJuan Starkey PA-C Unavailable [phone] Padmaja Arenas MD Primary Care Provider [phone] Reason for Visit * Reason Onset Date Comments Provider Call Back 07/15/2021 Encounter Details Date Type Department Care Team Description 07/15/2021 Telephone Adult Medicine [address] [address] Yadi Stapleton PA-C [address] [place] [address] Provider Call Back Social History Tobacco Use [...] suspected to have Coronavirus/COVID-19? No / Unsure 07/14/2021 2:48 PM EDT documented as of this encounter Miscellaneous Notes * Telephone Encounter - Boy Abreu L.P.N. - 07/19/2021 10:36 AM EDT Telephone Information: Called the home number No answer Called Cell left message to all triage nurse * Telephone Encounter - Yadi Stapleton PA-C - 07/19/2021 9:19 AM EDT I am not aware of how to order iodine studies in our system and this would be the same issue for internal endocrinology. If she would like to see external endocrine I can refer. The only other functional provider that I am aware of is Dr. Farah his office can be reached at [phone]. The T3 was ordered as requested in her last call * Telephone Encounter - Yulia Bates R.N. - 07/16/2021 2:10 PM EDT Has only lost a little weight. When she went to the executive personal assistant she gained weight The lymphedema and lipidemia She metabolizes at a very low rate and she eats very little because if she eats more she gains weight she says her insurance won't speak with her, Medicare, and they will only speak to a physician She has researched and did trial many ways to adapt diet and not helping Casava flour is a restricted starch that will help metabolizing so she is using that Not making antibodies, 5 pna shots and still losing antibodies Still believes that this originates in the thyroid and having the iodine testing will give her moredirection on dietary restrictions Do you think it would be approved if ordered by the specialist and is asking if a referral to our endocrine would be beneficial. She continues to be concerned with weight and health and does not want to the way family has passed, does not want to have a stroke. Please advise * Telephone Encounter - Nayeli Chavira RN - 07/15/2021 4:17 PM EDT Attempted to contact pt 4 times and each time received a busy signal. * Telephone Encounter - Yadi Stapleton PA-C - 07/15/2021 4:10 PM EDT I discussed with patient yesterday that iodine studies are not available within our EMR. I can order T3 (spoke to endocrinology about how to do this) and have done so today, however with normal recent TSH and T4 I am unsure if her insurance will pay for this testing. I do believe that a functional wellness center would be the best place to further evaluate, however she could contact her insuranceto find out if anybody locally is covered. I discussed with her yesterday that I was unsure if [facility] accepted any insurances. * Telephone Encounter - Sofiya Aparicio L.P.NMir - 07/15/2021 3:16 PM EDT Patient is calling requesting an Endocrine panel , thyroid concerns She is req T 3 and Iodine studies She states [facility] does not accept any insurances, she would have to sign a contract $349.00 for 3 months Or $399.00 for 6 month I explained most recent thyroid levels where WNL, she insisted that other values need to be checked She also is concerned she may have kidney problems, last BMP also WNL She was arguing the fact that she has to demand anything she needs and has been sent off to different specialties when all they had to do was check lab work Spent at least 30 min listening to this patient, she disagreed with test results I was telling her Message to Anai Stapleton to please discuss / advise what next step would be for this pt and her request for an Endocrine panel and [facility] not accepting any insurances * Telephone Encounter - Venus Peraza - 07/15/2021 2:23 PM EDT Caller requesting call back from provider: Yadi Wyliex Is the caller the patient? YES If caller is not the patient, what is the callers name? N/A Callers relationship to patient? N/A If person calling is not the patient themselves, is there a verbal release in FYI or permanent comments for this person: NO Reason for call back: Pt states that during her apt yesterday 07/14 Yadi Stapleton suggest she see [facility], pi states that they do not take her insurance they only do contracts, and she would have to come out of pocket, pt also requesting how she can request a ENDO panel, wants to know if she is making T-3 or know if she has low Iendine, thinks her thyriod medication is not working as well Caller offered to speak with the nurse for assistance: NO Response: Patient offered to speak with nurse for assistance and patient agreed. Message forwarded to nurse. documented in this encounter Plan of Treatment Not on file documented as of this encounter Results * TOTAL T3(TOTAL TRIDOTHYRONINE)(TT-3) (09/01/2021 2:26 PM EDT) TOTAL T3 95 60 - 181 ng/dl 09/01/2021 4:51 PM EDT [facility] 09/01/2021 2:26 PM EDT 09/01/2021 2:27 PM EDT Narrative [facility] - 09/01/2021 4:51 PM EDT Release to patient->Immediate Yadi Stapleton PA-C LAB [facility] documented in this encounter Visit Diagnoses Diagnosis Hypothyroidism, unspecified type- Primary Hypothyroidism, unspecified type documented in this encounter Care Teams Bull Gang Worker Relationship Specialty Start Date End Date Sekou Griffith MD PCP - General Internal Medicine 10/06/20 08/12/21 Padmaja Arenas MD 175 [facility] [address] [place] [address] PCP - General Internal Medicine 08/13/21 Francisco Winter MD Specialist Cardiology 09/29/20 Jakub Akers MD, PHD Specialist Neurosurgery 03/23/21 Juan Hammond PA-C [address] [address] Specialist Neurosurgery 03/23/21 documented as of this encounter
--- OUTSIDE RECORDS SUMMARY | 2024-05-14 18:43 | XMS_ITS | Encounter Summary ---
Author Organization [facility] Address [address] [place] [address] Care Team Providers Care Planting Machine Crewman Name Role Phone Francisco Winter MD Unavailable [phone] Jakub Akers MD, PHD Unavailable Unava ilable Juan Hammond PA-C Unavailable [phone] Padmaja Arenas MD Primary Care Provider [phone] Encounter Details Date Type Department Care Team Description 03/08/2023 Orders Only Medical Records [address] [place] [address] Padmaja Arenas MD [address] [place] [id number] Social History Tobacco Use Types Packs/Day Years [...] on file documented as of this encounter Procedures Procedure Name Priority Date/Time Associated Diagnosis Comments OUTSIDE MAMMO Routine 01/21/2022 documented in this encounter Results * OUTSIDE MAMMO (01/21/2022) Padmaja Arenas MD RADIOLOGY documented in this encounter Visit Diagnoses Not on filedocumented in this encounter Care Teams Planting Machine Crewman Relationship Specialty Start Date End Date Padmaja Arenas MD 175 [facility] [address] [place] [address] PCP - General Internal Medicine 08/13/21 Francisco Winter MD Specialist Cardiology 09/29/20 Jakub Akers MD, PHD Specialist Neurosurgery 03/23/21 Juan Hammond PA-C [address] [place] [address] Specialist Neurosurgery 03/23/21 documented as of this encounter
--- OUTSIDE RECORDS SUMMARY | 2024-05-14 18:43 | XMS_ITS | Encounter Summary ---
Author Organization [facility] Address [address] [place] [address] Care Team Providers Care Slubber Operator Name Role Phone Jonas Cano MD Primary Care Provider Unavailab Francisco Mobley MD Unavailable [phone] Sekou Griffith MD Primary Care Provider Unavai Jakub Hahn MD, PHD Unavailable Unava ilable Juan Hammond PA-C Unavailable [phone] Padmaja Arenas MD Primary Care Provider [phone] Encounter Details Date Type Department Care Team Description 09/16/2020 [facility] 175 [facility] [address] [place] [id number] Jorje Varela MD 175 [facility] [address] [place] [address] Social History Tobacco Use Types Packs/Day Years [...] have Coronavirus / COVID-19? No / Unsure 09/07/2020 1:00 PM EDT documented as of this encounter Plan of Treatment Not on file documented as of this encounter Visit Diagnoses Not on filedocumented in this encounter Care Teams Slubber Operator Relationship Specialty Start Date End Date Jonas Cano MD PCP - General Internal Medicine 06/17/20 10/05/20 Sekou Griffith MD PCP - General Internal Medicine 10/06/20 08/12/21 Padmaja Arenas MD [address] [place] [address] PCP - General Internal Medicine 08/13/21 Francisco Winter MD Specialist Cardiology 09/29/20 Jakub Akers MD, PHD Specialist Neurosurgery 03/23/21 Juan Hammond PA-C 175 [facility] [address] [place] [address] Specialist Neurosurgery 03/23/21 documented as of this encounter
--- OUTSIDE RECORDS SUMMARY | 2024-05-14 18:43 | XMS_ITS | Encounter Summary ---
Author Organization [facility] Address [address] [place] [address] Care Team Providers Care Textile Worker Name Role Phone Francisco Winter MD Unavailable [phone] Sekou Griffith MD Primary Care Provider Jakub Wilson MD, PHD Unavailable Unava ilable Juan Hammond PA-C Unavailable [phone] Padmaja Arenas MD Primary Care Provider [phone] Reason for Visit * Reason Onset Date Comments Error 06/30/2021 Encounter Details Date Type Department Care Team Description 06/30/2021 Refill Adult Medicine [address] [address] Sekou Griffith MD Error Social History Tobacco Use Types Packs/Day Years [...] encounter Miscellaneous Notes * Telephone Encounter - Venus Peraza - 06/30/2021 1:56 PM EDT Patient would like script to be: E-PRESCRIBED/FAXED TO PHARMACY WHEN WAS THE PATIENT'S LAST APPOINTMENT IN ADULT MEDICINE? 10/07/2020 WHEN WAS THE LAST TIME THE PATIENT SAW THEIR PCP? Same as above Does patient have an upcoming appointment? Yes 07/14/2021 with Yadi Stapleton and then again on 08/24/2021, with Padmaja Arenas (THE MEDICATION REQUESTED IS ON THE MED LIST ABOVE) All of the medications requested were on the CURRENT MEDS list Did you check the Pharmacy information above?: YES Patient wants: 45 -day supply Is this a mail order prescription request ? NO If the refill is from a FAXED refill request what is the RX # listed on the fax? N/A Patients current insurance carrier is: Payor: [place] / [place] / Product Type: MEDICARE [id number] documented in this encounter Plan of Treatment Not on file documented as of this encounter Visit Diagnoses Not on filedocumented in this encounter Care Teams Textile Worker Relationship Specialty Start Date End Date Sekou Griffith MD PCP - General Internal Medicine 10/06/20 08/12/21 Padmaja Arenas MD [address] [place] [address] PCP - General Internal Medicine 08/13/21 Francisco Winter MD Specialist Cardiology 09/29/20 Jakub Akers MD, PHD Specialist Neurosurgery 03/23/21 Juan Hammond PA-C 175 [facility] [address] [place] [address] Specialist Neurosurgery 03/23/21 documented as of this encounter
--- OUTSIDE RECORDS SUMMARY | 2024-05-14 18:43 | XMS_ITS | Encounter Summary ---
Author Organization [facility] Address [address] [place] [address] Care Team Providers Care Manpower Development Specialist Name Role Phone Sydnee Miranda DO Primary Care Pro vider Unavailable Jonas Cano MD Primary Care Provider Unavailab Virginia Ibarra MD Primary Care Provider Unavail able Sydnee Miranda DO Primary Care Pro vider Unavailable Jonas Cano MD Primary Care Provider Unavailab Francisco Mobley MD Unavailable Sekou Griffith MD Primary Care Provider LeighvaJakub Hooks MD, PHD Unavailable Unava ilJuan Starkey PA-C Unavailable [phone] Padmaja Arenas MD Primary Care Provider [phone] Encounter Details Date Type Department Care Team Description 03/09/2017 Fuel Pilot Engineer Report Medical Records [address] [place] [address] Brigida Celeste MD Social History Tobacco Use Types Packs/Day [...] on filedocumented in this encounter Care Teams Manpower Development Specialist Relationship Specialty Start Date End Date [...] Medicine 10/06/20 08/12/21 Padmaja Arenas MD 175 [facility] [address] [place] [address] PCP - General Internal Medicine 08/13/21 Francisco Winter MD Specialist Cardiology 09/29/20 Jakub Akers MD, PHD Specialist Neurosurgery 03/23/21 Juan Hammond PA-C 175 [facility] [address] [place] [address] Specialist Neurosurgery 03/23/21 documented as of this encounter
--- OUTSIDE RECORDS SUMMARY | 2024-05-14 18:43 | XMS_ITS | Encounter Summary ---
Author Organization [facility] Address [address] [place] [address] Care Team Providers Care Refractory Grinder Operator Name Role Phone Francisco Winter MD Unavailable [phone] Sekou Griffith MD Primary Care Provider Jakub Wilson MD, PHD Unavailable Unava ilable Juan Hammond PA-C Unavailable [phone] Padmaja Arenas MD Primary Care Provider [phone] Reason for Visit * Reason Onset Date Comments refill request 2021 Encounter Details Date Type Department Care Team Description 2021 Refill Adult Medicine [address] [address] Sekou Griffith MD refill request Social History [...] Telephone Encounter - Qiana Callejas M.A. - 05/05/2021 9:51 AM EDT Lab Results Component Value Date TSH 1.31 05/22/2020 ESSIE 10/27/20 NO pending appt. - #30 pended for your review, labs and appt. due * Telephone Encounter - Chevy Geovanna - 05/04/2021 4:26 PM EDT Patient calling on script. Please return call to patient with outcome. Patient states she only has 8 pills left. * Telephone Encounter - Dre Moeller - 2021 3:56 PM EDT Patient would like script to be: E-PRESCRIBED/FAXED TO PHARMACY WHEN WAS THE PATIENT'S LAST APPOINTMENT IN ADULT MEDICINE? 10/27/20 WHEN WAS THE LAST TIME THE PATIENT SAW THEIR PCP? Same as above Does patient have an upcoming appointment? No- patient refused to book appointment (THE MEDICATION REQUESTED IS ON THE MED LIST ABOVE) All of the medications requested were on the CURRENT MEDS list Did you check the Pharmacy information above?: YES Patient wants: 90 -day supply Is this a mail order prescription request ? NO If the refill is from a FAXED refill request what is the RX # listed on the fax? N/A Patients current insurance carrier is: [place] / [place] / Product Type: MEDICARE [id number] documented in this encounter Plan of Treatment Not on file documented as of this encounter Visit Diagnoses Not on filedocumented in this encounter Care Teams Refractory Grinder Operator Relationship Specialty Start Date End Date Sekou Griffith MD PCP - General Internal Medicine 10/06/20 08/12/21 Padmaja Arenas MD [address] [place], [place] [id number] PCP - General Internal Medicine 08/13/21 Francisco Winter MD Specialist Cardiology 09/29/20 Jakub Akers MD, PHD Specialist Neurosurgery 03/23/21 Juan Hammond PA-C [address] [address] Specialist Neurosurgery 03/23/21 documented as of this encounter
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
--- OUTSIDE RECORDS SUMMARY | 2024-05-14 18:43 | XMS_ITS | Encounter Summary ---
Author Organization [facility] Address [address] [place] [address] Care Team Providers Care Pediatric Medical Assistant Name Role Phone Francisco Winter MD Unavailable [phone] Jakub Akers MD, PHD Unavailable Unava ilable Juan Hammond PA-C Unavailable [phone] Padmaja Arenas MD Primary Care Provider [phone] Encounter Details Date Type Department Care Team Description 08/25/2021 Orders Only Internal Medicine - [address], [address] [place] [address] Padmaja Arenas MD [address] [place] [phone] Hip pain Social History Tobacco Use Types Packs/Day Years [...] suspected to have Coronavirus/COVID-19? No / Unsure 08/24/2021 1:29 PM EDT documented as of this encounter Plan of Treatment Not on file documented as of this encounter Procedures Procedure Name Priority Date/Time Associated Diagnosis Comments CHG RADEX HIP UNILATERAL WITH PELVIS 2-3 VIEWS Routine 08/25/2021 Hip pain documented in this encounter Results * RADEX HIP UNILATERAL WITH PELVIS 2-3 VIEWS (08/25/2021) Padmaja Arenas MD RADIOLOGY documented in this encounter Visit Diagnoses Diagnosis Hip pain Pain in joint, pelvic region and thigh documented in this encounter Care Teams Pediatric Medical Assistant Relationship Specialty Start Date End Date Padmaja Arenas MD [address] [place] [address] PCP - General Internal Medicine 08/13/21 Francisco Winter MD Specialist Cardiology 09/29/20 Jakub Akers MD, PHD Specialist Neurosurgery 03/23/21 Jaun Hammond PA-C [address] [address] Specialist Neurosurgery 03/23/21 documented as of this encounter
--- OUTSIDE RECORDS SUMMARY | 2024-05-14 18:43 | XMS_ITS | Encounter Summary ---
Author Organization [facility] Address [address] [place] [address] Care Team Providers Care Baseball Sewer Hand Name Role Phone Francisco Winter MD Unavailable [phone] Jakub Akers MD, PHD Unavailable Unava ilable Juan Hammond PA-C Unavailable [phone] Padmaja Arenas MD Primary Care Provider [phone] Reason for Visit * Reason Onset Date Comments Error 04/12/2023 radiology 04/12/2023 Ultrasound of br east and bone density Encounter Details Date Type Department Care Team Description 04/12/2023 Telephone Internal Medicine - [address], [address] [place] [address] Padmaja Arenas MD [address] [place] [phone] Error; radiology (/Ultrasound of breast and bone density ) Social History Tobacco Use Types Packs/Day Years [...] encounter Miscellaneous Notes * Telephone Encounter - Padmaja Arenas MD - 04/12/2023 9:19 PM EST External left breast ultrasound and also bone density orders placed, please fax * Telephone Encounter - Karine Nuñez - 04/12/2023 4:23 PM EST Needs left ultrasound of breast and bone density sent to [facility] will call for apt and fax Pended to pcp please review and advise Appt set up for April 25 @1:30pm [facility] for diagnostic mammo informed clinic scheduler to at ultrasound to follow Bone Density scheduled for @1pm documented in this encounter Plan of Treatment Not on file documented as of this encounter Results * DXA BONE DENSITY STUDY 1+ SITS AXIAL SKEL (04/26/2023) 04/26/2023 Padmaja Arenas MD DEXA documented in this encounter Visit Diagnoses Diagnosis Abnormal mammogram- Primary Abnormal mammogram, unspecified Routine medical exam Routine general medical examination at a health care facility documented in this encounter Care Teams Baseball Sewer Hand Relationship Specialty Start Date End Date Padmaja Arenas MD [address] [facility] [address] [place] [address] PCP - General Internal Medicine 08/13/21 Francisco Winter MD Specialist Cardiology 09/29/20 Jakub Akers MD, PHD Specialist Neurosurgery 03/23/21 Juan Hammond PA-C [address] [facility] [address] [place] [address] Specialist Neurosurgery 03/23/21 documented as of this encounter
--- OUTSIDE RECORDS SUMMARY | 2024-05-14 18:43 | XMS_ITS | Encounter Summary ---
Author Organization [facility] Address [address] [place] [address] Care Team Providers Care Event Decorator Name Role Phone Jonas Cano MD Primary Care Provider Unavailab Francisco Mobley MD Unavailable [phone] Sekou Griffith MD Primary Care Provider UnavaJakub Hooks MD, PHD Unavailable Unava ilable Juan Hammond PA-C Unavailable [phone] Padmaja Arenas MD Primary Care Provider [phone] Encounter Details Date Type Department Care Team Description 07/23/2020 Warranty Administrator Report Medical Records [address] [place] [address] Mykel Marcum MD Social History Tobacco Use Types Packs/Day [...] have Coronavirus / COVID-19? No / Unsure 06/23/2020 3:05 PM EDT documented as of this encounter Plan of Treatment Not on file documented as of this encounter Visit Diagnoses Not on filedocumented in this encounter Care Teams Event Decorator Relationship Specialty Start Date End Date Jonas Cano MD PCP - General Internal Medicine 06/17/20 10/05/20 Sekou Griffith MD PCP - General Internal Medicine 10/06/20 08/12/21 Padmaja Arenas MD [address] [address] PCP - General Internal Medicine 08/13/21 Francisco Winter MD Specialist Cardiology 09/29/20 Jakub Akers MD, PHD Specialist Neurosurgery 03/23/21 Juan Hammond PA-C [address] [address] Specialist Neurosurgery 03/23/21 documented as of this encounter
--- OUTSIDE RECORDS SUMMARY | 2024-05-14 18:43 | XMS_ITS | Encounter Summary ---
Author Organization [facility] Address [address] [place] [address] Care Team Providers Care Inspector Golf Ball Name Role Phone Virginia Gillis MD Primary Care Provider Unavail able Sydnee Miranda DO Primary Care Pro vider Unavailable Jonas Cano MD Primary Care Provider Unavailab Francisco Mobley MD Unavailable [phone] Sekou Griffith MD Primary Care Provider Jakub [place] MD, PHD Unavailable Unava ilJuan Starkey PA-C Unavailable [phone] Padmaja Arenas MD Primary Care Provider [phone] Encounter Details Date Type Department Care Team Description 11/28/2017 Orders Only Adult Medicine [address] [address] Sydnee Miranda DO Pure hypercholesterolemia (Primary Dx) Social History Tobacco Use Types [...] documented as of this encounter Results * (ABNORMAL) URINALYSIS, ROUTINE (11/29/2017 3:09 PM EDT) SPECIFIC GRAVITY, URINE 1.028 1.005 - 1.030 11/29/2017 3:25 PM EDT [facility] PH, URINE 6.0 5 - 8 11/29/2017 3:24 PM EDT [facility] PROTEIN, URINE NEGATIVE <=TRACE mg/dL 11/29/2017 3:24 PM EDT [facility] GLUCOSE, URINE (UA) NEGATIVE NEGATIVE mg/dL 11/29/2017 3:24 PM EDT [facility] KETONE, URINE NEGATIVE NEGATIVE mg/dL 11/29/2017 3:24 PM EDT [facility] BLOOD, URINE NEGATIVE NEGATIVE 11/29/2017 3:24 PM EDT [facility] NITRITE,URINE NEGATIVE NEGATIVE 11/29/2017 3:24 PM EDT [facility] LEUKOCYTE ESTERASE, URINE TRACE(A) NEGATIVE 11/29/2017 3:24 PM EDT [facility] 11/29/2017 3:09 PM EDT 11/29/2017 3:09 PM EDT Sydnee Dang DO LAB Performing Organization Address City/State/[facility] Co de Phone Number [facility] [address] [facility] documented in this encounter Visit Diagnoses Diagnosis Pure hypercholesterolemia- Primary documented in this encounter Care Teams Inspector Golf Ball Relationship Specialty Start Date End Date Virginia Gillis MD PCP - General Internal Medicine 11/15/17 12/24/17 Sydnee Miranda DO PCP - General Internal Medicine 12/25/17 06/16/20 Jonas Cano MD PCP - General Internal Medicine 06/17/20 10/05/20 Sekou Griffith MD PCP - General Internal Medicine 10/06/20 08/12/21 Padmaja Arenas MD [address] [facility] [address] [place] [address] PCP - General Internal Medicine 08/13/21 Francisco Winter MD Specialist Cardiology 09/29/20 Jakub Akers MD, PHD Specialist Neurosurgery 03/23/21 Juan Hammond PA-C [address] [facility] [address] [place] [address] Specialist Neurosurgery 03/23/21 documented as of this encounter
--- OUTSIDE RECORDS SUMMARY | 2024-05-14 18:43 | XMS_ITS | Encounter Summary ---
Author Organization [facility] Address [address] [place] [address] Care Team Providers Care Tile Installer Name Role Phone Sydnee Miranda DO Primary Care Pro vider Unavailable Jonas Cano MD Primary Care Provider Unavailab Francisco Mobley MD Unavailable [phone] Sekou Griffith MD Primary Care Provider Jakub [place] MD, PHD Unavailable Unava ilJuan Starkey PA-C Unavailable [phone] Padmaja Arenas MD Primary Care Provider [phone] Encounter Details Date Type Department Care Team Description 03/20/2019 Release of Information Medical Records [address] [place] [address] Abstract, Provider Social History Tobacco Use Types [...] on filedocumented in this encounter Care Teams Tile Installer Relationship Specialty Start Date End Date Sydnee Miranda DO PCP - General Internal Medicine 12/25/17 06/16/20 Jonas Cano MD PCP - General Internal Medicine 06/17/20 10/05/20 Sekou Griffith MD PCP - General Internal Medicine 10/06/20 08/12/21 Padmaja Arenas MD [address] [place] [address] PCP - General Internal Medicine 08/13/21 Francisco Winter MD Specialist Cardiology 09/29/20 Jakub Akers MD, PHD Specialist Neurosurgery 03/23/21 Juan Hammond PA-C [address] [place] [address] Specialist Neurosurgery 03/23/21 documented as of this encounter
--- OUTSIDE RECORDS SUMMARY | 2024-05-14 18:43 | XMS_ITS | Encounter Summary ---
Author Organization [facility] Address [address] [place] [address] Care Team Providers Care Z Os Mainframe Systems Programmer Name Role Phone Sydnee Miranda DO Primary Care Pro vider Unavailable Jonas Cano MD Primary Care Provider Unavailab Francisco Mobley MD Unavailable [phone] Sekou Griffith MD Primary Care Provider Jakub [place] MD, PHD Unavailable Unava ilJuan Starkey PA-C Unavailable [phone] Padmaja Arenas MD Primary Care Provider [phone] Encounter Details Date Type Department Care Team Description 08/29/2018 [facility] Report Medical Records [address] [place] [address] Kasandra Elizabeth, SAUD Social History Tobacco Use Types Packs/Day Years [...] on filedocumented in this encounter Care Teams [employer] Mainframe Systems Programmer Relationship Specialty Start Date End Date Sydnee Miranda DO PCP - General Internal Medicine 12/25/17 06/16/20 Jonas Cano MD PCP - General Internal Medicine 06/17/20 10/05/20 Sekou Griffith MD PCP - General Internal Medicine 10/06/20 08/12/21 Padmaja Arenas MD [address] [address] PCP - General Internal Medicine 08/13/21 Francisco Winter MD Specialist Cardiology 09/29/20 Jakub Akers MD, PHD Specialist Neurosurgery 03/23/21 Juan Hammond PA-C [address] [place] [address] Specialist Neurosurgery 03/23/21 documented as of this encounter
--- OUTSIDE RECORDS SUMMARY | 2024-05-14 18:43 | XMS_ITS | Encounter Summary ---
Author Organization [facility] Address [address] [place] [address] Care Team Providers Care Rheumatology Nurse Name Role Phone Jonas Cano MD Primary Care Provider Unavailab Francisco Mobley MD Unavailable [phone] Sekou Griffith MD Primary Care Provider LeighvaJakub Hooks MD, PHD Unavailable Unava ilable Juan Hammond PA-C Unavailable [phone] Padmaja Arenas MD Primary Care Provider [phone] Encounter Details Date Type Department Care Team Description 07/29/2020 SCAN Medical Records [address] [place] [address] Abstract, Provider Social History Tobacco Use Types [...] on filedocumented in this encounter Care Teams Rheumatology Nurse Relationship Specialty Start Date End Date Jonas Cano MD PCP - General Internal Medicine 06/17/20 10/05/20 Sekou Griffith MD PCP - General Internal Medicine 10/06/20 08/12/21 Padmaja Arenas MD [address] [place] [address] [place] [id number] PCP - General Internal Medicine 08/13/21 Francisco Winter MD Specialist Cardiology 09/29/20 Jakub Akers MD, PHD Specialist Neurosurgery 03/23/21 Juan Hammond PA-C [address] [place] [address] Specialist Neurosurgery 03/23/21 documented as of this encounter
--- OUTSIDE RECORDS SUMMARY | 2024-05-14 18:43 | XMS_ITS | Encounter Summary ---
Author Organization [facility] Address [address] [place] [address] Care Team Providers Care Library Information Technician Name Role Phone Francisco Winter MD Unavailable [phone] Jakub Akers MD, PHD Unavailable Unava ilable Juan Hammond PA-C Unavailable [phone] Padmaja Arenas MD Primary Care Provider [phone] Encounter Details Date Type Department Care Team Description 04/26/2023 Orders Only Internal Medicine - [address], [address] [place] [address] Padmaja Arenas MD [address] [place] [phone] Routine medical exam Social History Tobacco Use Types Packs/Day Years [...] Name Priority Date/Time Associated Diagnosis Comments OUTSIDE ULTRASOUND Routine 04/26/2023 SCR MAMMO BI INCL CAD Routine 04/26/2023 Routine medical exam documented in this encounter Results * OUTSIDE ULTRASOUND (04/26/2023) Padmaja Arenas MD RADIOLOGY * SCR MAMMO BI INCL CAD (04/26/2023) Padmaja Arenas MD MAMMOGRAPHY documented in this encounter Visit Diagnoses Diagnosis Routine medical exam Routine general medical examination at a health care facility documented in this encounter Care Teams Library Information Technician Relationship Specialty Start Date End Date Padmaja Arenas MD [address] [place] [address] PCP - General Internal Medicine 08/13/21 Francisco Winter MD Specialist Cardiology 09/29/20 Jakub Akers MD, PHD Specialist Neurosurgery 03/23/21 Juan Hammond PA-C [address] [place] [address] Specialist Neurosurgery 03/23/21 documented as of this encounter
--- OUTSIDE RECORDS SUMMARY | 2024-05-14 18:43 | XMS_ITS | Encounter Summary ---
Author Organization [facility] Address [address] [place] [address] Care Team Providers Care Benefits Assistant Name Role Phone Francisco Winter MD Unavailable [phone] Jakub Akers MD, PHD Unavailable Unava ilable Juan Hammond PA-C Unavailable [phone] Padmaja Arenas MD Primary Care Provider [phone] Reason for Visit * Reason Onset Date Comments TEST RESULTS 11/19/2021 er follow up 11/19/2021 Encounter Details Date Type Department Care Team Description 11/19/2021 Telephone Internal Medicine - [address], [address] [place] [address] Padmaja Arenas MD [address] [place] [phone] TEST RESULTS; er follow up Social History Tobacco Use Types Packs/Day Years [...] encounter Miscellaneous Notes * Telephone Encounter - Thea Harmon - 11/26/2021 1:52 PM EDT Pt has been informed. * Telephone Encounter - Padmaja Arenas MD - 11/24/2021 8:54 AM EDT Labs good * Telephone Encounter - Vika Diane - 11/24/2021 8:[address] Arenas patient went to the ER on 11/18/21 and would like you to go over her labs. I printed it out both Labs and ER report. * Telephone Encounter - Ina Waterman - 11/19/2021 3:58 PM EDT Pt went to [facility] ER on 11/18/2021 and would like to discuss her lab results documented in this encounter Plan of Treatment Not on file documented as of this encounter Visit Diagnoses Not on filedocumented in this encounter Care Teams Benefits Assistant Relationship Specialty Start Date End Date Padmaja Arenas MD [address] [address] PCP - General Internal Medicine 08/13/21 Francisco Winter MD Specialist Cardiology 09/29/20 Jakub Akers MD, PHD Specialist Neurosurgery 03/23/21 Juan Hammond PA-C [address] [address] Specialist Neurosurgery 03/23/21 documented as of this encounter
--- OUTSIDE RECORDS SUMMARY | 2024-05-14 18:43 | XMS_ITS | Encounter Summary ---
Author Organization [facility] Address [address] [place] [address] Care Team Providers Care Bilingual Spanish Inbound Sales Name Role Phone Sydnee Miranda DO Primary Care Pro vider Unavailable Jonas Cano MD Primary Care Provider Unavailab Virginia Ibarra MD Primary Care Provider Unavail able Sydnee Miranda DO Primary Care Pro vider Unavailable Jonas Cano MD Primary Care Provider Unavailab Francisco Mobley MD Unavailable [phone] Sekou Griffith MD Primary Care Provider Unavai Jakub Hahn MD, PHD Unavailable Unava ilJuan Starkey PA-C Unavailable [phone] Padmaja Arenas MD Primary Care Provider [phone] Reason for Visit * Reason Onset Date Comments TEST RESULTS 02/26/2015 Encounter Details Date Type Department Care Team Description 02/26/2015 Telephone Adult [address] [address] Sydnee Miranda DO TEST RESULTS Social History Tobacco Use Types Packs/Day Years Used Date Smoking Tobacco: Never Alcohol Use Standard Drinks/Week Comments No 0 (1 standard drink = 0.6 oz pur e alcohol) Sex Assigned at Date Recorded Not on file Job Start Date Occupation Industry Not on file Not on file Not on file documented as of this encounter Miscellaneous Notes * Telephone Encounter - Kaity Martínez M.A. - 02/27/2015 2:35 PM EST Patient returning Tabatha Silva, she would like to speak to her. Please advise, thank you * Telephone Encounter - TEZ Tom - 02/27/2015 8:33 AM EST Pt called No answer Message left TEZ Tom * Telephone Encounter - Wendy Bernard M.A. - 02/26/2015 3:57 PM EST Pt advised Venita will be back 02/27/15 will send request for Venita to call her * Telephone Encounter - Kaity Martínez M.A. - 02/26/2015 3:36 PM EST Inform patient: ANY URGENT OR ABNORMAL RESULTS WIILL RESULT IN A CALL BACK TO THE PATIENT TONNY. Type of test: :XRAY Date test was performed: 02/25/15 Where was the test performed: [facility] Who ordered this test?: Tabatha Silva Is the doctor here today?: NO Can the message wait until the doctor returns?: NO, The patient wants to know what was her XRAY results and why she has to wait till 04/08/15 for Ortho, and why she has to wait so long to see Dr. Delgadillo 04/01/15. IF PATIENT'S PCP IS NOT IN INSTRUCT PATIENT THAT THEY WILL RECEIVE A CALL BACK WHEN THE PCP IS IN THE OFFICE NEXT. documented in this encounter Plan of Treatment Not on file documented as of this encounter Visit Diagnoses Not on filedocumented in this encounter Care Teams Bilingual Spanish Inbound Sales Relationship Specialty Start Date End Date Sydnee [...] Medicine 10/06/20 08/12/21 Padmaja Arenas MD [address] [place] [address] PCP - General Internal Medicine 08/13/21 Francisco Winter MD Specialist Cardiology 09/29/20 Jakub Akers MD, PHD Specialist Neurosurgery 03/23/21 Juan Hammond PA-C [address] [address] Specialist Neurosurgery 03/23/21 documented as of this encounter
--- OUTSIDE RECORDS SUMMARY | 2024-05-14 18:43 | XMS_ITS | Encounter Summary ---
Author Organization [facility] Address [address] [place] [address] Care Team Providers Care Nut Processing Supervisor Name Role Phone Sydnee Miranda DO Primary Care Pro vider Unavailable Jonas Cano MD Primary Care Provider Unavailab Francisco Mobley MD Unavailable [phone] Sekou Griffith MD Primary Care Provider Jakub Wilson MD, PHD Unavailable Unava ilJuan Starkey PA-C Unavailable [phone] Padmaja Arenas MD Primary Care Provider [phone] Encounter Details Date Type Department Care Team Description 04/15/2019 [place] Report Medical Records [address] [place] [address] Ina Pineda CNM Social History Tobacco Use Types Packs/Day Years [...] on filedocumented in this encounter Care Teams Nut Processing Supervisor Relationship Specialty Start Date End Date Sydnee Miranda DO PCP - General Internal Medicine 12/25/17 06/16/20 Jonas Cano MD PCP - General Internal Medicine 06/17/20 10/05/20 Sekou Griffith MD PCP - General Internal Medicine 10/06/20 08/12/21 Padmaja Arenas MD [address] [address] PCP - General Internal Medicine 08/13/21 Francisco Winter MD Specialist Cardiology 09/29/20 Jakub Akers MD, PHD Specialist Neurosurgery 03/23/21 Juan Hammond PA-C [address] [address] Specialist Neurosurgery 03/23/21 documented as of this encounter
--- OUTSIDE RECORDS SUMMARY | 2024-05-14 18:43 | XMS_ITS | Encounter Summary ---
Author Organization [facility] Address [address] [place] [address] Care Team Providers Care Senior Java Software Developer Name Role Phone Jonas Cano MD Primary Care Provider Unavailab Francisco Mobley MD Unavailable [phone] Sekou Griffith MD Primary Care Provider UnavaJakub Hooks MD, PHD Unavailable Unava ilable Juan Hammond PA-C Unavailable [phone] Padmaja Arenas MD Primary Care Provider [phone] Encounter Details Date Type Department Care Team Description 08/12/2020 Gear Changer Report Medical Records [address] [place] [address] [facility] [address] [place] [address] Social History Tobacco Use Types Packs/Day Years [...] on filedocumented in this encounter Care Teams Senior Java Software Developer Relationship Specialty Start Date End Date Jonas Cano MD PCP - General Internal Medicine 06/17/20 10/05/20 Sekou Griffith MD PCP - General Internal Medicine 10/06/20 08/12/21 Padmaja Arenas MD [address] [address] PCP - General Internal Medicine 08/13/21 Francisco Winter MD Specialist Cardiology 09/29/20 Jakub Akers MD, PHD Specialist Neurosurgery 03/23/21 Juan Hammond PA-C [address] [address] Specialist Neurosurgery 03/23/21 documented as of this encounter
--- OUTSIDE RECORDS SUMMARY | 2024-05-14 18:43 | XMS_ITS | Clinical Summary ---
Author Organization [facility] Address [address] [place] [phone] Phone Care Team Providers Care Hazardous Materials Waste Technician Name Role Phone Liya Arenas MD Primary Care Provider [phone] Allergies Active Allergy Reactions Criticality Noted Date [...] acidophilus (PROBIOTIC ORAL) Probiotic Product (PROBIOTIC ACIDOPHILUS [employer] Cap-Take 3 capsules by mouth daily. Active [...] Care Team Description 05/01/2024 Telephone Orthopedic Surgery [facility] [address] [facility] [address] [place] [phone] Liliana Good PA 04/11/2024 2:15 PM EST Evaluation [facility] Occup[facility] 175 [facility] [address] [place] [address] Yulia Quintero OT Pain in both hands 04/11/2024 Plan of Care Documentation [facility] [address] [place] [phone] 03/13/2024 3:00 PM EST Office Visit Orthopedic Surgery [facility] [address] [place] [address] Liliana Good PA Pain in both hands 02/23/2024 2:30 PM EST Office Visit Internal Medicine - [place] [address] [facility] [address] [place] [address] Liya Arenas MD Pain in [...] History of mammogram DX:History of mammogram; COMMENT: [facility], no report in 2019 [...] PM EDT Office Visit Internal Medicine - [place] [address] [facility] [address] [place] [address] Liya Arenas MD 175 [facility] [address] [place] [address] Health Maintenance Due Date Last [...] INTO DAILY REGIME # 2 IMPROVE LEFT TURBINE ASSEMBLER FROM 28 TO 35 POUNDS # 3 [...] ASSESSMENT Routine 08/22/2023 LIPID PANEL Routine 08/22/2023 [facility] DEXA AXIAL SKELETON Routine 04/26/2023 4:03 [...] * Annual BMP Blood Test (08/22/2023) Pathologist [facility] Annual BMP Blood Test abstracted us Historical Provider HEALTH MAINTENANCE Final Result * Falls Risk Assessment (08/22/2023) [facility] Falls Risk Assessment abstracted Historical Provider HEALTH MAINTENANCE Final Result * (ABNORMAL) Lipid panel (08/22/2023) [facility] LDL/HDL Ratio 4 0 - 4 Triglycerides [...] PM EDT Narrative 04/26/2023 4:03 PM EDT [facility] Diagnostic Imaging Department [address] [place], [place] [id number] Patient: ??SOFIYA GONZALES ?/Age/Sex: 1955 - 67 - F Unit#: ??[id number] ? Location/Status: ??SPDIMAM/REG CLI ? Mnemonic/Ordering Site: ??MAMDEXAAX/SPMAM Ordering Physician: ??LIYA ARENAS MD Trae Dexa Axial Skeleton - 04/26/23 - 1349 Report Status:Signed History: Low estrogen state due to menopause. Comparison: No comparison studies. Findings: Bone densitometry is performed utilizing dual energy x-ray absorptiometry (DXA) in the AdisnigSwarm64 unit. The lumbar spine and proximal femora [...] 8.6 percent Hip 1.1 percent. IMPRESSION: Osteopenia. [id number] Dictating Physician: ??RADHA ANTUNEZ MD Electronically Signed by: ??RADHA ANTUNEZ MD Dic Date/Time: ??04/26/23 1602 Sign date/Time: ??04/26/23 1603 Procedure Note Radha Antunez MD - 09/25/2023 [facility] Diagnostic Imaging Department [address] [place] [address] Patient: CHRISTIANSOFIYA /Age/Sex: 1955 - 67 - F Unit#: [id number] Location/Status: SPDIMAM/REG CLI Mnemonic[facility] Ordering Physician: LIYA ARENAS MD Trae Dexa Axial Skeleton - 04/26/23 - [id number] Report Status:Signed History: Low estrogen state due to menopause. Comparison: No comparison studies. Findings: Bone densitometry is performed utilizing dual energy x-ray absorptiometry(DXA) in the AdisnigSwarm64 unit. The lumbar spine and proximal femora [...] Osteoporotic 8.6percent Hip 1.1 percent. IMPRESSION: Osteopenia. [id number] Dictating Physician: RADHA ANTUNEZ MD Electronically Signed by: RADHA ANTUNEZ MD Dic Date/Time: 04/26/23 1602 Sign date/Time: 04/26/23 1603 Liya Arenas MD IMG BI PROCEDURES Final Result * Depression Screening (02/21/2023) Pathologist [facility] Depression Screening abstracted Historical [facility] HEALTH MAINTENANCE Final Result * Hepatitis C Screening (01/18/2014) [facility] Hepatitis C Screening abstracted Historical [facility] HEALTH MAINTENANCE Final Result from Last 3 Months or Most Recently Relevant to Health Maintenance Insurance MEDICAID - [place] MEDICARE Care Teams Hazardous Materials Waste Technician Relationship Specialty Start Date End Date Liya Arenas MD [address] [place] [phone] PCP - General Internal Medicine 08/13/21
--- OUTSIDE RECORDS SUMMARY | 2024-05-14 18:43 | XMS_ITS | Encounter Summary ---
Author Organization [facility] Address [address] [place] [address] Care Team Providers Care Disposal Operator Name Role Phone Sydnee Miranda DO Primary Care Pro vider Unavailable Jonas Cano MD Primary Care Provider Unavailab Virginia Ibarra MD Primary Care Provider Unavail able Sydnee Miranda DO Primary Care Pro vider Unavailable Jonas Cano MD Primary Care Provider Unavailab Francisco Mobley MD Unavailable Seoku Griffith MD Primary Care Provider Jakub Wilson MD, PHD Unavailable Unava ilJuan Starkey PA-C Unavailable [phone] Padmaja Arenas MD Primary Care Provider [phone] Encounter Details Date Type Department Care Team Description 12/31/2014 Wellness Visit Medical Records [address] [place] [address] Sydnee Miranda DO Social History Tobacco Use [...] on filedocumented in this encounter Care Teams Disposal Operator Relationship Specialty Start Date End Date [...] Medicine 10/06/20 08/12/21 Padmaja Arenas MD [address] [place] [address] PCP - General Internal Medicine 08/13/21 Francisco Winter MD Specialist Cardiology 09/29/20 Jakub Akers MD, PHD Specialist Neurosurgery 03/23/21 Juan Hammond PA-C 175 [facility] [address] [place] [address] Specialist Neurosurgery 03/23/21 documented as of this encounter
--- OUTSIDE RECORDS SUMMARY | 2024-05-14 18:43 | XMS_ITS | Encounter Summary ---
Author Organization [facility] Address [address] [place] [address] Care Team Providers Care Surgical Instrument Repair Specialist Name Role Phone Francisco Winter MD Unavailable [phone] Sekou Griffith MD Primary Care Provider LeighvaJakub Hooks MD, PHD Unavailable Unava ilable Juan Hammond PA-C Unavailable [phone] Padmaja Arenas MD Primary Care Provider [phone] Reason for Visit * Reason Onset Date Comments other 02/17/2021 Encounter Details Date Type Department Care Team Description 02/17/2021 Telephone [facility] [address] [phone] Jorje Varela MD [address] [address] other Social History Tobacco Use Types Packs/Day Years [...] encounter Miscellaneous Notes * Telephone Encounter - Marguerite James Gaston - 02/17/2021 11:23 AM EST Received incoming call from patient, she is calling to inform Dr Varela that she is going to hold off on therapy for now, as she is having issues with Insomnia and Neck Spasms. Any questions please call her back @ [phone]. documented in this encounter Plan of Treatment Not on file documented as of this encounter Visit Diagnoses Not on filedocumented in this encounter Care Teams Surgical Instrument Repair Specialist Relationship Specialty Start Date End Date Sekou Griffith MD PCP - General Internal Medicine 10/06/20 08/12/21 Padmaja Arenas MD 175 [place] [address] PCP - General Internal Medicine 08/13/21 Francisco Winter MD Specialist Cardiology 09/29/20 Jakub Akers MD, PHD Specialist Neurosurgery 03/23/21 Juan Hammond PA-C [address] [address] Specialist Neurosurgery 03/23/21 documented as of this encounter
--- OUTSIDE RECORDS SUMMARY | 2024-05-14 18:43 | XMS_ITS | Encounter Summary ---
Author Organization [facility] Address [address] [place] [address] Care Team Providers Care Sterile Supply Technician Name Role Phone Sydnee Miranda DO Primary Care Pro vider Unavailable Jonas Cano MD Primary Care Provider Unavailab Virginia Ibarra MD Primary Care Provider Unavail able Sydnee Miranda DO Primary Care Pro vider Unavailable Jonas Cano MD Primary Care Provider Unavailab Francisco Mobley MD Unavailable [phone] Sekou Griffith MD Primary Care Provider LeighvaJakub Hooks MD, PHD Unavailable Unava ilJuan Starkey PA-C Unavailable [phone] Padmaja Arenas MD Primary Care Provider [phone] Reason for Visit * Reason Onset Date Comments APPOINTMENT 04/06/2015 Encounter Details Date Type Department Care Team Description 04/06/2015 Telephone Adult Medicine [address] [address] Sydnee Miranda DO APPOINTMENT Social History Tobacco Use Types Packs/Day Years [...] Telephone Encounter - Carrie Luo R.N. - 04/06/2015 6:55 PM EST Pt booked for 04/30 at 10:[address] Sydnee Smith * Telephone Encounter - Michelle Shaver - 04/06/2015 4:24 PM EST Follow up appointment not available. Please call patient to book-no open NON PUBLIC SLOTS. Appointment needed Patient canceled an apt with Dr Delgadillo on 04/01/2015 and wants to reschedule, however she doesn't want to see a PA or a nurse practitioner, only want to see Dr Delgadillo and wants to see her rolanda. documented in this encounter Plan of Treatment Not on file documented as of this encounter Visit Diagnoses Not on filedocumented in this encounter Care Teams Sterile Supply Technician Relationship Specialty Start Date End Date Sydnee [...] 10/06/20 08/12/21 Padmaja Arenas MD 175 [facility] [address] [place] [address] PCP - General Internal Medicine 08/13/21 Francisco Winter MD Specialist Cardiology 09/29/20 Jakub Akers MD, PHD Specialist Neurosurgery 03/23/21 Juan Hammond PA-C [address] [address] Specialist Neurosurgery 03/23/21 documented as of this encounter
--- OUTSIDE RECORDS SUMMARY | 2024-05-14 18:43 | XMS_ITS | Encounter Summary ---
Author Organization [facility] Address [address] [place] [address] Care Team Providers Care Ultrasound Tester Name Role Phone Sydnee Miranda DO Primary Care Pro vider Unavailable Jonas Cano MD Primary Care Provider Unavailab Virginia Ibarra MD Primary Care Provider Unavail able Sydnee Miranda DO Primary Care Pro vider Unavailable Jonas Cano MD Primary Care Provider Unavailab Francisco Mobley MD Unavailable Sekou Griffith MD Primary Care Provider LeighvaJakub Hooks MD, PHD Unavailable Unava ilJuan Starkey PA-C Unavailable [phone] Padmaja Arenas MD Primary Care Provider [phone] Encounter Details Date Type Department Care Team Description 02/25/2017 Release of Information Medical Records [address] [place] [address] Abstract, Provider Social History Tobacco Use Types [...] on filedocumented in this encounter Care Teams Ultrasound Tester Relationship Specialty Start Date End Date Sydnee [...] Medicine 10/06/20 08/12/21 Padmaja Arenas MD [address] [place] [address] PCP - General Internal Medicine 08/13/21 Francisco Winter MD Specialist Cardiology 09/29/20 Jakub Akers MD, PHD Specialist Neurosurgery 03/23/21 Juan Hammond PA-C 175 [facility] [address] [place] [address] Specialist Neurosurgery 03/23/21 documented as of this encounter
--- OUTSIDE RECORDS SUMMARY | 2024-05-14 18:43 | XMS_ITS | Encounter Summary ---
Author Organization [facility] Address [address] [place] [address] Care Team Providers Care Music Arranger Name Role Phone Jonas Cano MD Primary Care Provider Unavailab Francisco Mobley MD Unavailable [phone] Sekou Griffith MD Primary Care Provider Unavai Jakub Hahn MD, PHD Unavailable Unava ilable Juan Hammond PA-C Unavailable [phone] Padmaja Arenas MD Primary Care Provider [phone] Encounter Details Date Type Department Care Team Description 09/10/[address] [facility] [address] [facility] [address] [place] [phone] Jorje Varela MD 175 [facility] [address] [place] [address] Social History Tobacco Use Types Packs/Day Years [...] on filedocumented in this encounter Care Teams Music Arranger Relationship Specialty Start Date End Date Jonas Cano MD PCP - General Internal Medicine 06/17/20 10/05/20 Sekou Griffith MD PCP - General Internal Medicine 10/06/20 08/12/21 Padmaja Arenas MD [address] [place] [address] PCP - General Internal Medicine 08/13/21 Francisco Winter MD Specialist Cardiology 09/29/20 Jakub Akers MD, PHD Specialist Neurosurgery 03/23/21 Juan Hammond PA-C 175 [facility] [address] [place] [address] Specialist Neurosurgery 03/23/21 documented as of this encounter
--- OUTSIDE RECORDS SUMMARY | 2024-05-14 18:43 | XMS_ITS | Encounter Summary ---
Author Organization [facility] Address [address] [place] [address] Care Team Providers Care Licensed Vocational Nurse Name Role Phone Francisco Winter MD Unavailable [phone] Jaukb Akers MD, PHD Unavailable Unava ilable Juan Hammond PA-C Unavailable [phone] Padmaja Arenas MD Primary Care Provider [phone] Reason for Visit * Reason Onset Date Comments Faxed Refill 10/24/2023 Encounter Details Date Type Department Care Team Description 10/24/2023 Refill Internal Medicine - [address], [address] [place], [place] [id number] Padmaja Arenas MD [address] [place] [phone] Faxed Refill Social History Tobacco Use Types Packs/Day Years [...] encounter Miscellaneous Notes * Telephone Encounter - Erica Jordan M.A. - 10/24/2023 3:40 PM EDT Lab Results Component Value Date TSH 1.00 08/22/2023 * Telephone Encounter - Katy Ducati - 10/24/2023 3:10 PM EDT REFILL LAST TIME SEEN: 08/22/2023 PCP: - NEXT TIME SEEN: 02/23/2024 documented in this encounter Plan of Treatment Not on file documented as of this encounter Visit Diagnoses Not on filedocumented in this encounter Care Teams Licensed Vocational Nurse Relationship Specialty Start Date End Date Padmaja Arenas MD [address] [place] [address] PCP - General Internal Medicine 08/13/21 Francisco Winter MD Specialist Cardiology 09/29/20 Jakub Akers MD, PHD Specialist Neurosurgery 03/23/21 Juan Hammond PA-C [address] [place] [address] Specialist Neurosurgery 03/23/21 documented as of this encounter
--- OUTSIDE RECORDS SUMMARY | 2024-05-14 18:43 | XMS_ITS | Encounter Summary ---
Author Organization [facility] Address [address] [place] [address] Care Team Providers Care Apple Peeler Operator Name Role Phone Sydnee Miranda DO Primary Care Pro vider Unavailable Jonas Cano MD Primary Care Provider Unavailab Francisco Mobley MD Unavailable [phone] Sekou Griffith MD Primary Care Provider UnavaJakub Hooks MD, PHD Unavailable Unava ilable Juan Hammond PA-C Unavailable [phone] Padmaja Arenas MD Primary Care Provider [phone] Reason for Visit * Reason Onset Date Comments TEST RESULTS 08/28/2018 Encounter Details Date Type Department Care Team Description 08/28/2018 Telephone OBGYN - [place] [address] [place] [address] Fannie Hernandez MD TEST RESULTS Social History Tobacco Use Types [...] encounter Miscellaneous Notes * Telephone Encounter - Carolynn Waller - 08/29/2018 1:14 PM EDT Spoke with pt informed pt she did not have a pap performed, she is not due until 2019. Pap in 2014 was negative. Informed pt that paps are every 5 years unless abnormal then they are done yearly. Pt stated she wanted to come in to have exam and pap done at next visit which should be dec 2018, I letpt know pap would not be done since she is not due. I let pt know that provider recommended her to h ave a 1 yr annual follow up exam. Pt declined and stated she will come in next year when her pap isdue. FYI * Telephone Encounter - Winnie Lobo - 08/28/2018 4:06 PM EDT Pt is asking results from last pap on 12/25/17. States never heard anything if everything was ok ornot. Pt request a call in the afternoons only. Pt is not understanding why she never received any notification in the mail of her results. documented in this encounter Plan of Treatment Not on file documented as of this encounter Visit Diagnoses Not on filedocumented in this encounter Care Teams Apple Peeler Operator Relationship Specialty Start Date End Date Sydnee Miranda DO PCP - General Internal Medicine 12/25/17 06/16/20 Jonas Cano MD PCP - General Internal Medicine 06/17/20 10/05/20 Sekou Griffith MD PCP - General Internal Medicine 10/06/20 08/12/21 Padmaja Arenas MD 175 [place] [address] PCP - General Internal Medicine 08/13/21 Francisco Winter MD Specialist Cardiology 09/29/20 Jakub Akers MD, PHD Specialist Neurosurgery 03/23/21 Juan Hammond PA-C 175 [facility] [address] [place] [address] Specialist Neurosurgery 03/23/21 documented as of this encounter
--- OUTSIDE RECORDS SUMMARY | 2024-05-14 18:43 | XMS_ITS | Encounter Summary ---
Author Organization [facility] Address [address] [place] [address] Care Team Providers Care Disabilities Services Officer Name Role Phone Sydnee Miranda DO Primary Care Pro vider Unavailable Jonas Cano MD Primary Care Provider Unavailab Francisco Mobley MD Unavailable Sekou Griffith MD Primary Care Provider UnavaJakub Hooks MD, PHD Unavailable Unava ilable Juan Hammond PA-C Unavailable [phone] Padmaja Arenas MD Primary Care Provider [phone] Encounter Details Date Type Department Care Team Description 02/22/2019 Telephone Vascular Surgery - [address] [place] [id number] Michael Cabral MD Social History Tobacco Use Types Packs/Day [...] encounter Miscellaneous Notes * Telephone Encounter - Michelle Ayala M.A. - 02/27/2019 8:49 AM EST Lm for pt to call back to speak with one of the MA'S for any questions she has. Looking in her chart there is a new appointment made to see her pcp today 02/27/2019 for her BP. * Telephone Encounter - Yadi Pineda NP - 02/26/2019 1:58 PM EST So one of the MAs can certainly call her back and speak with her but as a vascular surgery clinic, we do not manage blood pressure or blood pressure medications - that is handled by her PCP. * Telephone Encounter - Mayela Waggoner - 02/26/2019 9:46 AM EST Pt called I informed the Pt that she would have to see her pcp for her blood pressure. Pt would like to know why, I explained that we have only seen her for varicose veins. Pt is very upset and is insistant on a medical professional giving her a call back. Please advise. * Telephone Encounter - Mayela Waggoner - 02/22/2019 4:09 PM EST Lvm to inform pt. * Telephone Encounter - Yadi Pineda NP - 02/22/2019 2:11 PM EST So, we have only seen her for varicose veins. She needs to call her PCP about her blood pressure og PCP manages that. Thank you * Telephone Encounter - Mayela Waggoner - 02/22/2019 2:02 PM EST Pt called concerned about her systolic pressure that she said is due to her vascular disease. She advised she went from normal to 164-167 and she is concerned and is wondering if she should be seen sooner than her scheduled appt on 05/17/19. Please advise documented in this encounter Plan of Treatment Not on file documented as of this encounter Visit Diagnoses Not on filedocumented in this encounter Care Teams Disabilities Services Officer Relationship Specialty Start Date End Date Sydnee Miranda DO PCP - General Internal Medicine 12/25/17 06/16/20 Jonas Cano MD PCP - General Internal Medicine 06/17/20 10/05/20 Sekou Griffith MD PCP - General Internal Medicine 10/06/20 08/12/21 Padmaja Arenas MD [address] [place] [address] PCP - General Internal Medicine 08/13/21 Francisco Winter MD Specialist Cardiology 09/29/20 Jakub Akers MD, PHD Specialist Neurosurgery 03/23/21 Juan Hammond PA-C [address] [address] Specialist Neurosurgery 03/23/21 documented as of this encounter
--- OUTSIDE RECORDS SUMMARY | 2024-05-14 18:43 | XMS_ITS | Encounter Summary ---
Author Organization [facility] Address [address] [place] [address] Care Team Providers Care Railroad Worker Name Role Phone Sydnee Miranda DO Primary Care Pro vider Unavailable Jonas Cano MD Primary Care Provider Unavailab Francisco Mobley MD Unavailable [phone] Sekou Griffith MD Primary Care Provider Jakub Wilson MD, PHD Unavailable Unava ilJuan Starkey PA-C Unavailable [phone] Padmaja Arenas MD Primary Care Provider [phone] Encounter Details Date Type Department Care Team Description 03/11/2019 Shopper Report Medical Records [address] [place] [address] Daljit Diehl Social History Tobacco Use Types Packs/Day Years [...] on filedocumented in this encounter Care Teams Railroad Worker Relationship Specialty Start Date End Date Sydnee Miranda DO PCP - General Internal Medicine 12/25/17 06/16/20 Jonas Cano MD PCP - General Internal Medicine 06/17/20 10/05/20 Sekou Griffith MD PCP - General Internal Medicine 10/06/20 08/12/21 Padmaja Arenas MD [address] [place] [address] PCP - General Internal Medicine 08/13/21 Francisco Winter MD Specialist Cardiology 09/29/20 Jakub Akers MD, PHD Specialist Neurosurgery 03/23/21 Juan Hammond PA-C [address] [place] [address] Specialist Neurosurgery 03/23/21 documented as of this encounter
--- OUTSIDE RECORDS SUMMARY | 2024-05-14 18:43 | XMS_ITS | Encounter Summary ---
Author Organization [facility] Address [address] [place] [address] Care Team Providers Care Backside Grinder Name Role Phone Sydnee Miranda DO Primary Care Pro vider Unavailable Jonas Cano MD Primary Care Provider Unavailab Virginia Ibarra MD Primary Care Provider Unavail able Sydnee Miranda DO Primary Care Pro vider Unavailable Jonas Cano MD Primary Care Provider Unavailab Francisco Mobley MD Unavailable Sekou Griffith MD Primary Care Provider LeighvaJakub Hooks MD, PHD Unavailable Unava ilJuan Starkey PA-C Unavailable [phone] Padmaja Arenas MD Primary Care Provider [phone] Encounter Details Date Type Department Care Team Description 04/05/2017 Operations Expert Report Medical Records [address] [place] [address] Abstract, Provider Social History Tobacco Use Types [...] on filedocumented in this encounter Care Teams Backside Grinder Relationship Specialty Start Date End Date Sydnee [...] Medicine 10/06/20 08/12/21 Padmaja Arenas MD 175 [facility] [address] [place] [address] PCP - General Internal Medicine 08/13/21 Francisco Winter MD Specialist Cardiology 09/29/20 Jakub Akers MD, PHD Specialist Neurosurgery 03/23/21 Juan Hammond PA-C 175 [facility] [address] [place] [address] Specialist Neurosurgery 03/23/21 documented as of this encounter
--- OUTSIDE RECORDS SUMMARY | 2024-05-14 18:43 | XMS_ITS | Encounter Summary ---
Author Organization [facility] Address [address] [place] [address] Care Team Providers Care Leasing Manager Name Role Phone Sydnee Miranda DO Primary Care Pro vider Unavailable Jonas Cano MD Primary Care Provider Unavailab Francisco Mobley MD Unavailable [phone] Sekou Griffith MD Primary Care Provider Jakub Wilson MD, PHD Unavailable Unava ilJuan Starkey PA-C Unavailable [phone] Padmaja Arenas MD Primary Care Provider [phone] Encounter Details Date Type Department Care Team Description 01/16/2019 Director Television Report Medical Records [address] [place] [address] Juliet Porter MD Social History Tobacco Use [...] on filedocumented in this encounter Care Teams Leasing Manager Relationship Specialty Start Date End Date Sydnee Miranda DO PCP - General Internal Medicine 12/25/17 06/16/20 Jonas Cano MD PCP - General Internal Medicine 06/17/20 10/05/20 Sekou Griffith MD PCP - General Internal Medicine 10/06/20 08/12/21 Padmaja Arenas MD 175 [place] [address] PCP - General Internal Medicine 08/13/21 Francisco Winter MD Specialist Cardiology 09/29/20 Jakub Akers MD, PHD Specialist Neurosurgery 03/23/21 Juan Hammond PA-C 175 [place] [address] Specialist Neurosurgery 03/23/21 documented as of this encounter
--- OUTSIDE RECORDS SUMMARY | 2024-05-14 18:43 | XMS_ITS | Encounter Summary ---
Author Organization [facility] Address [address] [place] [address] Care Team Providers Care Visitor Services Representative Name Role Phone Francisco Winter MD Unavailable [phone] Sekou Griffith MD Primary Care Provider LeighvaJakub Hooks MD, PHD Unavailable Unava ilable Juan Hammond PA-C Unavailable [phone] Padmaja Arenas MD Primary Care Provider [phone] Reason for Visit * Reason Comments E-prescribe Rx Request Encounter Details Date Type Department Care Team Description 01/20/2021 Refill Adult Medicine [address] [address] Jonas Cano MD E-prescribe Rx Request Social History Tobacco Use Types Packs/Day Years [...] encounter Miscellaneous Notes * Telephone Encounter - Ophelia Owusu M.A. - 01/21/2021 12:14 PM EST Last office visit 10/27/20 * Telephone Encounter - Deb Vieyra - 01/21/2021 8:20 AM EST Possible duplicate documented in this encounter Plan of Treatment Not on file documented as of this encounter Visit Diagnoses Not on filedocumented in this encounter Care Teams Visitor Services Representative Relationship Specialty Start Date End Date Sekou Griffith MD PCP - General Internal Medicine 10/06/20 08/12/21 Padmaja Arenas MD [address] [place] [address] PCP - General Internal Medicine 08/13/21 Francisco Winter MD Specialist Cardiology 09/29/20 Jakub Akers MD, PHD Specialist Neurosurgery 03/23/21 Juan Hammond PA-C [address] [address] Specialist Neurosurgery 03/23/21 documented as of this encounter
--- OUTSIDE RECORDS SUMMARY | 2024-05-14 18:44 | XMS_ITS | Encounter Summary ---
Author Organization [facility] Address [address] [place] [address] Care Team Providers Care Rail Car Loader Name Role Phone Francisco Winter MD Unavailable [phone] Jakub Akers MD, PHD Unavailable Unava ilable Juan Hammond PA-C Unavailable [phone] Padmaja Arenas MD Primary Care Provider [phone] Encounter Details Date Type Department Care Team Description 02/21/2023 Release of Information [facility] [address] [id number] Jamie Romero DPM [address] [address] Social History Tobacco Use Types Packs/Day Years [...] on filedocumented in this encounter Care Teams Rail Car Loader Relationship Specialty Start Date End Date Padmaja Arenas MD [address] [address] PCP - General Internal Medicine 08/13/21 Francisco Winter MD Specialist Cardiology 09/29/20 Jakub Akers MD, PHD Specialist Neurosurgery 03/23/21 Juan Hammond PA-C [address] [place] [address] Specialist Neurosurgery 03/23/21 documented as of this encounter
--- OUTSIDE RECORDS SUMMARY | 2024-05-14 18:44 | XMS_ITS | Encounter Summary ---
Author Organization [facility] Address [address] [place] [address] Care Team Providers Care Dairy Inspector Name Role Phone Sydnee Miranda DO Primary Care Pro vider Unavailable Jonas Cano MD Primary Care Provider Unavailab Virginia Ibarra MD Primary Care Provider Unavail able Sydnee Miranda DO Primary Care Pro vider Unavailable Jonas Cano MD Primary Care Provider Unavailab Francisco Mobley MD Unavailable Sekou Griffith MD Primary Care Provider Unavai Jakub Hahn MD, PHD Unavailable Unava ilJuan Starkey PA-C Unavailable [phone] Padmaja Arenas MD Primary Care Provider [phone] Encounter Details Date Type Department Care Team Description 11/12/2013 SCAN Medical Records [address] [place] [address] Santy Marx Social History Tobacco Use Types Packs/Day Years Used Date Smoking Tobacco: Never Assessed Sex Assigned at Date Recorded Not on file Job Start Date Occupation Industry Not on file Not on file Not on file documented as of this encounter Plan of Treatment Not on file documented as of this encounter Procedures Procedure Name Priority Date/Time Associated Diagnosis Comments OUTSIDE VASCULAR STUDY Routine 11/12/2013 documented in this encounter Results * OUTSIDE VASCULAR STUDY (11/12/2013) Provider Abstract CARDIOLOGY documented in this encounter Visit Diagnoses Not on filedocumented in this encounter Care Teams Dairy Inspector Relationship Specialty Start Date End Date Sydnee [...] Medicine 10/06/20 08/12/21 Padmaja Arenas MD [address] [place] [address] PCP - General Internal Medicine 08/13/21 Francisco Winter MD Specialist Cardiology 09/29/20 Jakub Akers MD, PHD Specialist Neurosurgery 03/23/21 Juan Hammond PA-C 175 [facility] [address] [place] [address] Specialist Neurosurgery 03/23/21 documented as of this encounter
[2024-05-14 18:57] LABS: Basophils Percent Auto 0.5 % (0-2); Eosinophils Absolute Auto 0.2 X10*3/uL (0.0-0.4); Eosinophils Percent Auto 2.8 % (0-4); Hematocrit 44.1 % (37.0-47.0); Hemoglobin 14.4 g/dl (12.0-16.0); Imm Gran Abs Auto 0.03 X10*3/uL (0.00-0.03); Imm Gran Pct Auto 0.4 % (0.0-0.4); Lymphocytes Absolute Auto 2.2 X10*3/uL (1.2-4.9); Lymphocytes Percent Auto 28.9 % (20-40); Mean Corpuscular HGB Conc 32.7 g/dl (31.0-35.0); Mean Corpuscular Hemoglobin 27.4 pg (27.0-33.0); Mean Platelet Volume 10.8 fL (9.4-12.3); Monocytes Absolute Auto 0.6 X10*3/uL (0.1-1.2); Monocytes Percent Auto 8.2 % (2-11); Neutrophils Absolute Auto 4.4 x10*3/uL (2.0-8.3); Neutrophils Percent Auto 59.2 % (45-73); Platelet Count 200 X10*3/uL (160-400); Red Blood Count 5.25 X10*6/uL (4.20-5.50); Red Cell Distribution Width 14.7 % (11.0-16.0); White Blood Count 7.5 X10*3/uL (4.8-10.8)
[2024-05-14 19:05] LABS: Alanine Aminotransferase 24 U/L (0-31); Aspartate Amino Transferase 33 U/L (5-31); C Reactive Protein 0.39 mg/dL (< or = 0.50); Estimated Glomerular Filt Rate > 60
[2024-05-14 19:38] LABS: Erythrocyte Sedimentation Rate 6 MM/HR (0-20)
[2024-05-17 14:57] LABS: HLA B27 Negative (Negative)
== END 2024-05-14 14:29 | disposition home or self-care (01) ==
LOC: HO.HKASLDS 14:28
PROVIDERS: PCP Physician Assistant Medical; Visit Provider Internal Medicine Rheumatology
DX: M54.2 Cervicalgia (principal); G89.29 Other chronic pain; M54.89 Other dorsalgia
CPT/HCPCS: 36415; 82565; 84450; 84460; 85025; 85652; 86140; 86812; 99212

== ENCOUNTER 2024-05-14 14:28 | Outpatient (AMB) | payer MEDICARE, MEDICAID, SELFPAY ==
--- NOTE | 2024-05-14 14:38 | MHC.OFFVIS ---
Vital Signs 05/14/24 14:39 Height 5 ft 2.5 in Weight 228 lb 6.382 oz BMI 41.1 BP 140/80 H Blood Pressure Location Lt brachial Position Sitting Pulse 73 Pulse Source Pulse Oximeter Pulse Oximetry (%) 99 Oxygen Delivery Method Room Air Intake Visit Reasons: Follow up Intake Note: Patient presents today for osteoarthritis. Accompanied by: Self / Same As Patient Allergies atorvastatin Allergy (Mild, Verified 05/14/24 14:46) fluid retention erythromycin base Allergy (Mild, Verified 05/14/24 14:46) Stomach Upset lactose Allergy (Mild, Verified 05/14/24 14:46) Stomach Upset latex Allergy (Mild, Verified 05/14/24 14:46) Itching Sulfa (Sulfonamide Antibiotics) Allergy (Mild, Verified 05/14/24 14:46) Nausea zolpidem [From Ambien] Allergy (Mild, Verified 05/14/24 14:46) Unknown house dust Allergy (Unknown, Verified 05/14/24 14:46) Unknown HPI HPI Follow up: Details: Follow-up in regards to MRI reports reviewed after last appointment. 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 She also has degenerative joint disease throughout the spine. She has back pain with activity and with rest. Over 30 years ago she was evaluated for back pain and was told that she needs at least 3 surgeries by back surgeon but was recommended to avoid surgery. She was referred to physical therapy and continue to exercise and work out the gym. She maintain flexibility. Last year she had 3 falls. Subsequently she developed left elbow pain and has had chronic shoulder pain. Sometimes she has swelling in her hands. She uses either aspirin or ibuprofen 400 mg PRN pain with benefit. [facility] Medical History Osteoarthritis Fibromyalgia Epicondylitis, lateral Bilateral carpal tunnel syndrome Memory deficit Varicose veins of both lower extremities Dyslipidemia LVH (left ventricular hypertrophy) Bilateral carotid artery stenosis Obesity Surgical History H/O left breast biopsy Hx of tonsillectomy H/O: knee surgery H/O cystoscopy Review of Systems Const All systems reviewed & are unremarkable except as noted in HPI and below Physical Exam Vital Signs: Last Vital Signs Pulse 73 05/14/24 14:39 BP 140/80 H 05/14/24 14:39 Pulse Ox 99 05/14/24 14:39 Oxygen Delivery Method Room Air 05/14/24 14:39 BMI result Body Mass Index 41.1 Const Other: General: Comfortable CVS: RRR Respiratory: clear to auscultation bilaterally. Good respiratory effort Skin: No lesions seen MSK: Heberden's nodes present. No synovitis. No dactylitis. Tender left medial epicondyle. No pain with resisted wrist extension or flexion. Normal range of motion of upper extremities and lower extremities. She has tenderness of thoracic and lumbar spinous process. Tender SI joints. Right positive ELIZABETH. Normal range of motion of cervical spine. Normal range of motion of lumbar spine. Assessment & Plan Assessment & Plan (1) Back pain: Comment: She has had history of chronic back pain. Back pain characteristic is both degenerative and inflammatory. On exam she has localized tenderness of bilateral SI joints and T-L spinous process with enthesitis (left medial epicondyle, previous visit she had trochanteric bursitis 02/13/23). 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 I am ordering further workup to evaluate for axial spondyloarthritis. She has benefit on ibuprofen 400 mg or aspirin PRN. Code(s): M54.9 - Dorsalgia, unspecified Category: Medical Qualifiers: Back pain location: back pain in other location Chronicity: chronic Qualified Code(s): M54.89 - Other dorsalgia; G89.29 - Other chronic pain Plan: Baseline labs ordered including inflammatory markers and HLA B27 X-rays of C-spine, L-spine, T-spine and bilateral SI joints ordered Continue home exercise routine Return to clinic in 1-2 months to review results Orders: Orders XR lumbar spine 2-3V Today M54.9 - Dorsalgia, unspecified HLA B27 Today M54.9 - Dorsalgia, unspecified Creatinine Today M54.9 - Dorsalgia, unspecified Alanine Aminotransferase Today M54.9 - Dorsalgia, unspecified Aspartate Amino Transferase Today M54.9 - Dorsalgia, unspecified Complete Blood Count Auto Diff Today M54.9 - Dorsalgia, unspecified XR cervical spine 3V Today M54.2 - Cervicalgia XR sacroiliac joint min 3V Today M54.9 - Dorsalgia, unspecified XR thoracic spine 2V Today M54.2 - Cervicalgia, M54.9 - Dorsalgia, unspecified Erythrocyte Sedimentation Rate Today M54.9 - Dorsalgia, unspecified C Reactive Protein Today M54.9 - Dorsalgia, unspecified Coding Level of Care Code Est Pt Level 4 (77851) Complex EM visit Add On G2211 Diagnoses Other chronic back pain M54.89; G89.29 Back pain location: back pain in other location Chronicity: chronic
[2024-05-14 14:39] VITALS: BP 140/80; PULSE 73; O2SAT 99; BMI 41.1
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
--- OUTSIDE RECORDS SUMMARY | 2024-05-14 17:37 | XMS_ITS | Clinical Summary ---
Author Organization [facility] Address [address] [place] [address] Care Team Providers Care Leather Dresser Name Role Phone Sydnee Miranda DO Primary Care P rovider Social History Tobacco Use Types Packs/Day Years Used Date Smoking Tobacco: Never Assessed Sex and Gender Information Value Date Recorded Sex Assigned at Not on file Gender Identity Not on file Sexual Orientation Not on file Plan of Treatment Health Maintenance Due Date Last Done Comments Hepatitis C Screening 1955 COVID-19 Vaccine (#1) 1957 Depression Screening 1969 Preventative Health Evaluation 05/04/1975 Colon Cancer Screening (Colonoscopy) 2002 Breast Cancer Screening (Mammogram) 05/04/2007 Shingrix-Zoster Vaccine (1 of 2) 05/04/2007 Fall Risk Assessment 2022 Osteoporosis Screening (DEXA Scan) 2022 Pneumococcal Vaccine (1 of 1 - PCV) 2022 Influenza Vaccine (#1) 2023 DTap / Tdap / Td (2 - Td or Tdap) 12/24/2024 015 RSV Adult > 60+ Yrs or Pregn ant (1 - 1-dose 75+ series) 2032 Hepatitis B Vaccines Aged Out No long er eligible based on patient's age to complete this topic RSV Ped < 20 months Aged Out No longe r eligible based on patient's age to complete this topic Care Teams Leather Dresser Relationship Specialty Start Date End Date Sydnee Miranda DO PCP - General Automatic Coil Machine Operator 11/22/19
== END 2024-05-14 15:43 | disposition home or self-care (01) ==
LOC: HO.RHES 14:29
PROVIDERS: PCP Physician Assistant Medical; Visit Provider Internal Medicine Rheumatology
DX: M54.89 Other dorsalgia (principal); G89.29 Other chronic pain
CPT/HCPCS: 99214; G2211

== ENCOUNTER 2024-05-22 13:50 | Outpatient (REF) | payer MEDICARE, MEDICAID, SELFPAY ==
--- NOTE | ~2024-05-22 | XR_ITS ---
CLINICAL HISTORY: M54.9 - Dorsalgia, unspecified --- Additional Notes or Special Instructions: MRI ce rvical, thoracic, lumbar spine 9 2010 reveals c4-c5, c5-c6, c6-c7, l3-l4 endplate marginal ridging , multilevel enthesopathy and bilateral 3 views lumbar spine Comparison: None Findings: Normal alignment. No acute fractures or dislocation. There is multiple level degenerative disc and facet change. IMPRESSION: No acute findings. This document has been electronically signed by: Og James MD on 05/24/2024 09:09:22
--- NOTE | ~2024-05-22 | XR_ITS ---
CLINICAL HISTORY: M54.9 - Dorsalgia, unspecified --- Additional Notes or Special Instructions: MRI ce rvical, thoracic, lumbar spine 9 2010 reveals c4-c5, c5-c6, c6-c7, 3 views sacroiliac joints Comparison: None Findings No acute fractures. No significant degenerative change. No erosions. Sacroiliac joints are symmetric and normal in appearance. IMPRESSION: No acute findings This document has been electronically signed by: Og James MD on 05/24/2024 09:09:42
--- NOTE | ~2024-05-22 | XR_ITS ---
CLINICAL HISTORY: M54.9 - Dorsalgia, unspecified --- Additional Notes or Special Instructions: MRI 2010 reveals degenerative joint disease and multilevel enthesopathy 2 views thoracic spine Comparison: None Findings: Normal alignment. No acute fractures or dislocation. There are multiple level degenerative disc changes. IMPRESSION: No acute findings. This document has been electronically signed by: Og James MD on 05/24/2024 09:10:05
--- NOTE | ~2024-05-22 | XR_ITS ---
CLINICAL HISTORY: M54.2 - Cervicalgia --- Additional Notes or Special Instructions: MRI cervical, tho racic, lumbar spine 9 2010 reveals c4-c5, c5-c6, c6-c7, l3-l4 endplate marginal ridging, multileve l enthesopathy and bilateral 2 views cervical spine Comparison: None Findings: Normal alignment. No acute fractures or dislocation. There is multiple level degenerative disc, facet, and uncovertebral joint change. Prevertebral soft tissues within normal limits. IMPRESSION: No acute findings. This document has been electronically signed by: Og James MD on 05/24/2024 09:08:01
--- OUTSIDE RECORDS SUMMARY | 2024-05-22 16:34 | XMS_ITS | Encounter Summary ---
Author Organization [facility] Address [address] [place] [address] Care Team Providers Care First Aid Instructor Name Role Phone Sydnee Miranda DO Primary Care Pro vider Unavailable Jonas Cano MD Primary Care Provider Unavailab Virginia Ibarra MD Primary Care Provider Unavail able Sydnee Miranda DO Primary Care Pro vider Unavailable Jonas Cano MD Primary Care Provider Unavailab Francisco Mobley MD Unavailable [phone] Sekou Griffith MD Primary Care Provider LeighvaJakub Hooks MD, PHD Unavailable Unava ilJuan Starkey PA-C Unavailable Padmaja Arenas MD Primary Care Provider [phone] Encounter Details Date Type Department Care Team Description 04/21/2014 Transfer Records Medical Records [address] [place] [address] Demetrio Angel MD Social History Tobacco Use Types Packs/Day [...] on filedocumented in this encounter Care Teams First Aid Instructor Relationship Specialty Start Date End Date [...] Medicine 10/06/20 08/12/21 Padmaja Arenas MD 175 [place] [address] PCP - General Internal Medicine 08/13/21 Francisco Winter MD Specialist Cardiology 09/29/20 Jakub Akers MD, PHD Specialist Neurosurgery 03/23/21 Juan Hammond PA-C 175 [facility] [address] [place] [address] Specialist Neurosurgery 03/23/21 documented as of this encounter
--- OUTSIDE RECORDS SUMMARY | 2024-05-22 16:34 | XMS_ITS | Encounter Summary ---
Author Organization [facility] Address [address] [place] [address] Care Team Providers Care Demand Planner Name Role Phone Sydnee Miranda DO Primary Care Pro vider Unavailable Jonas Cano MD Primary Care Provider Unavailab Francisco Mobley MD Unavailable [phone] Sekou Griffith MD Primary Care Provider Jakub Wilson MD, PHD Unavailable Unava ilJuan Starkey PA-C Unavailable [phone] Padmaja Arenas MD Primary Care Provider [phone] Encounter Details Date Type Department Care Team Description 11/14/2019 Maintainer Operator Report Medical Records [address] [place] [address] Abstract, Provider Social History Tobacco Use Types [...] on filedocumented in this encounter Care Teams Demand Planner Relationship Specialty Start Date End Date Sydnee Miranda DO PCP - General Internal Medicine 12/25/17 06/16/20 Jonas Cano MD PCP - General Internal Medicine 06/17/20 10/05/20 Sekou Griffith MD PCP - General Internal Medicine 10/06/20 08/12/21 Padmaja Arenas MD 175 [place] [address] PCP - General Internal Medicine 08/13/21 Francisco Winter MD Specialist Cardiology 09/29/20 Jakub Akers MD, PHD Specialist Neurosurgery 03/23/21 Juan Hammond PA-C [address] [place] [address] Specialist Neurosurgery 03/23/21 documented as of this encounter
--- OUTSIDE RECORDS SUMMARY | 2024-05-22 16:34 | XMS_ITS | Encounter Summary ---
Author Organization [facility] Address [address] [place] [address] Care Team Providers Care Circuit Court Judge Name Role Phone Sydnee Miranda DO Primary Care Pro vider Unavailable Jonas Cano MD Primary Care Provider Unavailab Virginia Ibarra MD Primary Care Provider Unavail able Sydnee Miranda DO Primary Care Pro vider Unavailable Jonas Cano MD Primary Care Provider Unavailab Francisco Mobley MD Unavailable [phone] Sekou Griffith MD Primary Care Provider LeighvaJakub Hooks MD, PHD Unavailable Unava ilJuan Starkey PA-C Unavailable [phone] Padmaja Arenas MD Primary Care Provider [phone] Encounter Details Date Type Department Care Team Description 07/01/2016 Orders Only Adult Medicine [address] [address] Sydnee Miranda DO Encounter for long-term (current) [...] Negative . ng/mL 07/11 11:08 AM EDT [facility] [employer] HYDROMORPHONE UR GCMS Negative . ng/mL 07/11/2016 11:08 AM EDT [facility] Comment: This test was developed and its performance characteristics determined by [facility]. ??It has not been cleared or approved by the Food and Drug Administration. Performed at: ??[facility] [address] [place] [address] ??[id number] [employer] Bever[employer] Controller: Jorje Portillo MD, Phone: ??[phone] 07/02/2016 2:59 PM EDT 07/02/2016 2:59 PM EDT [facility] DO LAB Performing Organization Address [facility] Co de Phone Number [facility] * OXYCODONE, URINE (07/02/2016 2:59 PM EDT) URINE OXYCODONE LEVEL NEGATIVE NEGATIVE 07/02/2016 4:32 PM EDT [facility] 07/02/2016 2:59 PM EDT 07/02/2016 2:59 PM EDT Jay[employer] DO LAB Performing Organization Address City/[facility]/ZIP Co de Phone Number [facility] [address] [place] [address] * DRUG OF ABUSE SCREEN (07/02/2016 2:59 PM EDT) AMPHETAMINE, URINE NEGATIVE NEGATIVE 07/02/2016 4:32 PM EDT [facility] BARBITURATES, URINE NEGATIVE NEGATIVE 07/02/2016 4:32 PM EDT [facility] BENZODIAZEPINE , URINE NEGATIVE NEGATIVE 07/02/2016 4:32 PM EDT [facility] COCAINE, URINE NEGATIVE NEGATIVE 07/02/2016 4:32 PM EDT [facility] OPIATES, URINE NEGATIVE NEGATIVE 07/02/2016 4:32 PM EDT [facility] MARIJUANA(THC) , URINE NEGATIVE NEGATIVE 07/02/2016 4:32 PM EDT [facility] 07/02/2016 2:59 PM EDT 07/02/2016 2:59 PM EDT Sydnee Dang DO LAB Performing Organization Address City/State/[facility] Co de Phone Number [facility] [address] [facility] documented in this encounter Visit Diagnoses Diagnosis Encounter for long-term (current) use of other medications- Primary documented in this encounter Care Teams Circuit Court Judge Relationship Specialty Start Date End Date Sydnee [...] Internal Medicine 10/06/20 08/12/21 Padmaja Arenas MD [address] [place] [address] PCP - General Internal Medicine 08/13/21 Francisco Winter MD Specialist Cardiology 09/29/20 Jakub Akers MD, PHD Specialist Neurosurgery 03/23/21 Juan Hammond PA-C [address] [address] Specialist Neurosurgery 03/23/21 documented as of this encounter
--- OUTSIDE RECORDS SUMMARY | 2024-05-22 16:34 | XMS_ITS | Encounter Summary ---
Author Organization [facility] Address [address] [place] [address] Care Team Providers Care Upfitter Name Role Phone Sydnee Miranda DO Primary Care Pro vider Unavailable Jonas Cano MD Primary Care Provider Unavailab Virginia Ibarra MD Primary Care Provider Unavail able Sydnee Miranda DO Primary Care Pro vider Unavailable Jonas Cano MD Primary Care Provider Unavailab Francisco Mobley MD Unavailable Sekou Griffith MD Primary Care Provider Unavai Jakub Hahn MD, PHD Unavailable Unava ilable Juan Hammond PA-C Unavailable [phone] Padmaja Arenas MD Primary Care Provider [phone] Reason for Visit * Reason Onset Date Comments immunizations 09/30/2016 Encounter Details Date Type Department Care Team Description 09/30/2016 Telephone Adult Medicine [address] [address] Sydnee Miranda DO immunizations Social History Tobacco [...] on filedocumented in this encounter Care Teams Upfitter Relationship Specialty Start Date End Date Sydnee [...] Medicine 10/06/20 08/12/21 Padmaja Arenas MD 175 [place] [address] PCP - General Internal Medicine 08/13/21 Francisco Winter MD Specialist Cardiology 09/29/20 Jakub Akers MD, PHD Specialist Neurosurgery 03/23/21 Juan Hammond PA-C [address] [address] Specialist Neurosurgery 03/23/21 documented as of this encounter
--- OUTSIDE RECORDS SUMMARY | 2024-05-22 16:34 | XMS_ITS | Encounter Summary ---
Author Organization [facility] Address [address] [place] [address] Care Team Providers Care Client Manager Name Role Phone Sydnee Miranda DO Primary Care Pro vider Unavailable Jonas Cano MD Primary Care Provider Unavailab Virginia Ibarra MD Primary Care Provider Unavail able Sydnee Miranda DO Primary Care Pro vider Unavailable Jonas Cano MD Primary Care Provider Unavailab Francisco Mobley MD Unavailable [phone] Sekou Griffith MD Primary Care Provider Unavai Jakub Hahn MD, PHD Unavailable Unava ilJuan Starkey PA-C Unavailable [phone] Padmaja Arenas MD Primary Care Provider [phone] Reason for Visit * Reason Onset Date Comments REFERRAL 02/11/2016 Endocrinology Encounter Details Date Type Department Care Team Description 02/11/2016 Telephone Endocrinology - [address] [address] Michael Landers MD REFERRAL (Endocrinology) Social History Tobacco Use Types Packs/Day Years Used Date Smoking Tobacco: Never Alcohol Use Standard Drinks/Week Comments No 0 (1 standard drink = 0.6 oz pur e alcohol) Sex Assigned at Date Recorded Not on file Job Start Date Occupation Industry Not on file Not on file Not on file documented as of this encounter Miscellaneous Notes * Telephone Encounter - Chiara Barnes - 02/11/2016 12:56 PM EST Patient was referred to Endocrinology Department re: concerns about thyroid Priority: Routine Pt declined making appt as of right now due to availability being far out. (June) & (April). documented in this encounter Plan of Treatment Not on file documented as of this encounter Visit Diagnoses Not on filedocumented in this encounter Care Teams Client Manager Relationship Specialty Start Date End Date [...] PCP - General Internal Medicine 10/06/20 08/12/21 Pamdaja Arenas MD 175 [facility] [address] [place] [address] PCP - General Internal Medicine 08/13/21 Francisco Winter MD Specialist Cardiology 09/29/20 Jakub Akers MD, PHD Specialist Neurosurgery 03/23/21 Juan Hammond PA-C 175 [facility] [address] [place] [address] Specialist Neurosurgery 03/23/21 documented as of this encounter
--- OUTSIDE RECORDS SUMMARY | 2024-05-22 16:34 | XMS_ITS | Encounter Summary ---
Author Organization [facility] Address [address] [place] [address] Care Team Providers Care Microeconomics Professor Name Role Phone Sydnee Miranda DO Primary Care Pro vider Unavailable Jonas Cano MD Primary Care Provider Unavailab Virginia Ibarra MD Primary Care Provider Unavail able Sydnee Miranda DO Primary Care Pro vider Unavailable Jonas Cano MD Primary Care Provider Unavailab Francisco Mobley MD Unavailable Sekou Griffith MD Primary Care Provider LeighvaJakub Hooks MD, PHD Unavailable Unava ilJuan Starkey PA-C Unavailable [phone] Padmaja Arenas MD Primary Care Provider [phone] Encounter Details Date Type Department Care Team Description 07/21/2014 Business Doc Medical Records [address] [place] [address] Abstract, Provider Social History Tobacco Use Types [...] on filedocumented in this encounter Care Teams Microeconomics Professor Relationship Specialty Start Date End Date [...] Medicine 10/06/20 08/12/21 Padmaja Arenas MD [address] [place] [address] PCP - General Internal Medicine 08/13/21 Francisco Winter MD Specialist Cardiology 09/29/20 Jakub Akers MD, PHD Specialist Neurosurgery 03/23/21 Juan Hammond PA-C [address] [address] Specialist Neurosurgery 03/23/21 documented as of this encounter
--- OUTSIDE RECORDS SUMMARY | 2024-05-22 16:34 | XMS_ITS | Encounter Summary ---
Author Organization [facility] Address [address] [place] [address] Care Team Providers Care Yarn Twister Name Role Phone Sydnee Miranda DO Primary Care Pro vider Unavailable Jonas Cano MD Primary Care Provider Unavailab Francisco Mobley MD Unavailable [phone] Sekou Griffith MD Primary Care Provider Jakub Wilson MD, PHD Unavailable Unava ilJuan Starkey PA-C Unavailable [phone] Padmaja Arenas MD Primary Care Provider [phone] Encounter Details Date Type Department Care Team Description 02/18/2020 Release of Information Medical Records [address] [place] [id number] [place] [address] Social History Tobacco Use Types Packs/Day Years [...] on filedocumented in this encounter Care Teams Yarn Twister Relationship Specialty Start Date End Date Sydnee Miranda DO PCP - General Internal Medicine 12/25/17 06/16/20 Jonas Cano MD PCP - General Internal Medicine 06/17/20 10/05/20 Sekou Griffith MD PCP - General Internal Medicine 10/06/20 08/12/21 Padmaja Arenas MD [address] [place] [address] PCP - General Internal Medicine 08/13/21 Francisco Winter MD Specialist Cardiology 09/29/20 Jakub Akers MD, PHD Specialist Neurosurgery 03/23/21 Juan Hammond PA-C 175 [facility] [address] [place] [address] Specialist Neurosurgery 03/23/21 documented as of this encounter
--- OUTSIDE RECORDS SUMMARY | 2024-05-22 16:34 | XMS_ITS | Encounter Summary ---
Author Organization [facility] Address [address] [place] [address] Care Team Providers Care Electrical System Specialist Name Role Phone Sydnee Miranda DO Primary Care Pro vider Unavailable Jonas Cano MD Primary Care Provider Unavailab Virginia Ibarra MD Primary Care Provider Unavail able Sydnee Miranda DO Primary Care Pro vider Unavailable Jonas Cano MD Primary Care Provider Unavailab Francisco Mobley MD Unavailable [phone] Sekou Griffith MD Primary Care Provider UnavaJakub Hooks MD, PHD Unavailable Unava ilJuan Starkey PA-C Unavailable [phone] Padmaja Arenas MD Primary Care Provider [phone] Reason for Referral * Radiology Services (Routine) - Closed Specialty Diagnoses / Procedures Referred By Contshanthi glover Referred To Contact Radiology Diagnoses Abnormal CXR Procedures CAT SCAN OF CHEST NO CONTRAST Sydnee Miranda DO [address] [place] [address] [address] [address] Referral ID Status Reason Start Date Expiration Date Visits Re quested Visits Authorized NO AUTH REQ Closed 04/21/2016 04/21/2017 1 1 Encounter Details Date Type Department Care Team Description 04/21/2016 Orders Only Adult Medicine West [address] [address] Sydnee Miranda DO Abnormal CXR (Primary Dx) Social History Tobacco Use Types [...] documented as of this encounter Results * CAT SCAN OF CHEST NO CONTRAST (05/05/2016 4:25 PM EDT) 05/05/2016 5:16 PM EDT Impressions ISMAEL BUTLER OTHER EXTERNAL - 05/05/2016 5:20 PM EDT IMPRESSION: Normal noncontrast chest CT. Narrative ISMAEL BUTLER OTHER EXTERNAL - 05/05/2016 5:20 PM EDT Noncontrast chest CT: HISTORY: Question pulmonary nodule on 03/08/2016 chest radiograph COMPARISON: 04/06/2016 chest radiograph TECHNIQUE: Scans were obtained through the chest without intravenous contrast. Radiation dose:ctdi 11.30 mGy Both lungs are clear. No pulmonary nodules. No pleural or pericardial effusion. No lymphadenopathy. No focal bone pathology. Limited sections through the upper abdomen appear normal. Procedure Note Jone Stratton MD - 05/05/[address]: HISTORY: Question pulmonary nodule on 03/08/2016 chest radiograph COMPARISON: 04/06/2016 chest radiograph TECHNIQUE: Scans were obtained through the chest without intravenouscontrast. Radiation dose:ctdi 11.30 mGy Both lungs are clear. No pulmonary nodules. No pleural or pericardialeffusion. No lymphadenopathy. No focal bone pathology. Limited sections through theupper abdomen appear normal. IMPRESSION: Normal noncontrast chest CT. Sydnee Dang DO CT SCANS ISMAEL BUTLER OTHER EXTERNAL documented in this encounter Visit Diagnoses Diagnosis Abnormal CXR- Primary Other nonspecific abnormal finding of lung field Abnormal CXR Other nonspecific abnormal finding of lung field documented in this encounter Care Teams Electrical System Specialist Relationship Specialty Start Date End Date [...] Medicine 10/06/20 08/12/21 Padmaja Arenas MD [address] [place] [address] PCP - General Internal Medicine 08/13/21 Francisco Winter MD Specialist Cardiology 09/29/20 Jakub Akers MD, PHD Specialist Neurosurgery 03/23/21 Juan Hammond PA-C 175 [facility] [address] [place] [address] Specialist Neurosurgery 03/23/21 documented as of this encounter
--- OUTSIDE RECORDS SUMMARY | 2024-05-22 16:34 | XMS_ITS | Encounter Summary ---
Author Organization [facility] Address [address] [place] [address] Care Team Providers Care Metal Molder Name Role Phone Sydnee Miranda DO Primary Care Pro vider Unavailable Jonas Cano MD Primary Care Provider Unavailab Virginia Ibarra MD Primary Care Provider Unavail able Sydnee Miranda DO Primary Care Pro vider Unavailable Jonas Cano MD Primary Care Provider Unavailab Francisco Mobley MD Unavailable Sekou Griffith MD Primary Care Provider Unavai Jakub Hahn MD, PHD Unavailable Unava ilable Juan Hammond PA-C Unavailable [phone] Padmaja Arenas MD Primary Care Provider [phone] Encounter Details Date Type Department Care Team Description 07/15/2016 Pay Station Department Manager Report Medical Records [address] [place] [address] Kaden Bertrand MD Social History Tobacco Use [...] on filedocumented in this encounter Care Teams Metal Molder Relationship Specialty Start Date End Date Sydnee [...] Medicine 10/06/20 08/12/21 Padmaja Arenas MD [address] [place] [address] PCP - General Internal Medicine 08/13/21 Francisco Winter MD Specialist Cardiology 09/29/20 Jakub Akers MD, PHD Specialist Neurosurgery 03/23/21 Juan Hammond PA-C [address] [place] [address] Specialist Neurosurgery 03/23/21 documented as of this encounter
--- OUTSIDE RECORDS SUMMARY | 2024-05-22 16:34 | XMS_ITS | Encounter Summary ---
Author Organization [facility] Address [address] [place] [address] Care Team Providers Care Cleaner And Polisher Name Role Phone Francisco Winter MD Unavailable [phone] Sekou Griffith MD Primary Care Provider LeighvaJakub Hooks MD, PHD Unavailable Unava ilable Juan Hammond PA-C Unavailable [phone] Padmaja Arenas MD Primary Care Provider [phone] Encounter Details Date Type Department Care Team Description 02/15/2021 Orders Only Adult Medicine [address] [id number] Sekou Griffith MD Breast pain Social History Tobacco Use Types Packs/Day [...] Procedure Name Priority Date/Time Associated Diagnosis Comments DIAGNOSTIC MAMMOGRAPHY INCLU DING CAD BILATERAL Routine 01/26/2021 Breast pain SONO BREAST, COMPLETE Routine 01/26/2021 Breast pain documented in this encounter Results * SONO BREAST, COMPLETE (01/26/2021) Sekou Griffith MD MAMMOGRAPHY * DIAGNOSTIC MAMMOGRAPHY INCLUDING CAD BILATERAL (01/26/2021) Sekou Griffith MD MAMMOGRAPHY documented in this encounter Visit Diagnoses Diagnosis Breast pain Mastodynia documented in this encounter Care Teams Cleaner And Polisher Relationship Specialty Start Date End Date Sekou Griffith MD PCP - General Internal Medicine 10/06/20 08/12/21 Padmaja Arenas MD [address] [place] [address] PCP - General Internal Medicine 08/13/21 Francisco Winter MD Specialist Cardiology 09/29/20 Jakub Akers MD, PHD Specialist Neurosurgery 03/23/21 Juan Hammond PA-C [address] [place] [address] Specialist Neurosurgery 03/23/21 documented as of this encounter
--- OUTSIDE RECORDS SUMMARY | 2024-05-22 16:34 | XMS_ITS | Encounter Summary ---
Author Organization [facility] Address [address] [place] [address] Care Team Providers Care Back Tufter Name Role Phone Francisco Winter MD Unavailable Jakub Akers MD, PHD Unavailable Unava ilable Juan Hammond PA-C Unavailable Padmaja Arenas MD Primary Care Provider [phone] Encounter Details Date Type Department Care Team Description 12/23/2021 Telephone [facility] [address] [id number] Jamie Romero DPM [address] [address] Social History Tobacco Use Types Packs/Day Years [...] suspected to have Coronavirus/COVID-19? No / Unsure 12/22/2021 2:07 PM EST documented as of this encounter Miscellaneous Notes * Telephone Encounter - Nguyen Hall - 12/23/2021 10:51 AM EST Sofiya was here yesterday stated she was told she was getting Voltaren gel prescribed and a anti inflammatory. Nothing has yet been sent. She asked to be called when they are sent to her pharmacy . Thank you documented in this encounter Plan of Treatment Not on file documented as of this encounter Visit Diagnoses Not on filedocumented in this encounter Care Teams Back Tufter Relationship Specialty Start Date End Date Padmaja Arenas MD [address] [address] PCP - General Internal Medicine 08/13/21 Francisco Winter MD Specialist Cardiology 09/29/20 Jakub Akers MD, PHD Specialist Neurosurgery 03/23/21 Juan Hammond PA-C [address] [address] Specialist Neurosurgery 03/23/21 documented as of this encounter
--- OUTSIDE RECORDS SUMMARY | 2024-05-22 16:34 | XMS_ITS | Encounter Summary ---
Author Organization [facility] Address [address] [place] [address] Care Team Providers Care Ream Cutter Name Role Phone Sydnee Miranda DO Primary Care Pro vider Unavailable Jonas Cano MD Primary Care Provider Unavailab Virginia Ibarra MD Primary Care Provider Unavail able Sydnee Miranda DO Primary Care Pro vider Unavailable Jonas Cano MD Primary Care Provider Unavailab Francisco Mobley MD Unavailable Sekou Griffith MD Primary Care Provider LeighvaJakub Hooks MD, PHD Unavailable Unava ilJuan Starkey PA-C Unavailable [phone] Padmaja Arenas MD Primary Care Provider [phone] Encounter Details Date Type Department Care Team Description 06/05/2014 Release of Information Medical Records [address] [place] [address] Abstract, Provider Social History Tobacco Use Types [...] on filedocumented in this encounter Care Teams Ream Cutter Relationship Specialty Start Date End Date Sydnee [...] Medicine 10/06/20 08/12/21 Padmaja Arenas MD [address] [place] [address] PCP - General Internal Medicine 08/13/21 Francisco Winter MD Specialist Cardiology 09/29/20 Jakub Akers MD, PHD Specialist Neurosurgery 03/23/21 Juan Hammond PA-C [address] [address] Specialist Neurosurgery 03/23/21 documented as of this encounter
--- OUTSIDE RECORDS SUMMARY | 2024-05-22 16:34 | XMS_ITS | Encounter Summary ---
Author Organization [facility] Address [address] [place] [address] Care Team Providers Care Budget Record Clerk Name Role Phone Francisco Winter MD Unavailable [phone] Jakub Akers MD, PHD Unavailable Unava ilable Juan Hammond PA-C Unavailable [phone] Padmaja Arenas MD Primary Care Provider [phone] Encounter Details Date Type Department Care Team Description 12/06/2021 Director Of Land Acquisition Report Medical Records [address] [place] [address] Sudarshan Serna MD Social History Tobacco Use [...] on filedocumented in this encounter Care Teams Budget Record Clerk Relationship Specialty Start Date End Date Padmaja Arenas MD [address] [id number] PCP - General Internal Medicine 08/13/21 Francisco Winter MD Specialist Cardiology 09/29/20 Jakub Akers MD, PHD Specialist Neurosurgery 03/23/21 Juan Hammond PA-C [address] [id number] Specialist Neurosurgery 03/23/21 documented as of this encounter
--- OUTSIDE RECORDS SUMMARY | 2024-05-22 16:34 | XMS_ITS | Encounter Summary ---
Author Organization [facility] Address [address] [place] [address] Care Team Providers Care Supervisor Landscape Name Role Phone Sydnee Miranda DO Primary Care Pro vider Unavailable Jonas Cano MD Primary Care Provider Unavailab Francisco Mobley MD Unavailable [phone] Sekou Griffith MD Primary Care Provider Jakub Wilson MD, PHD Unavailable Unava ilJuan Starkey PA-C Unavailable [phone] Padmaja Arenas MD Primary Care Provider [phone] Encounter Details Date Type Department Care Team Description 11/21/2019 Preschool Principal Report Medical Records [address] [place] [address] Juan Hammond PA-C [address] [address] Social History Tobacco Use Types Packs/Day Years [...] on filedocumented in this encounter Care Teams Supervisor Landscape Relationship Specialty Start Date End Date Sydnee Miranda DO PCP - General Internal Medicine 12/25/17 06/16/20 Jonas Cano MD PCP - General Internal Medicine 06/17/20 10/05/20 Sekou Griffith MD PCP - General Internal Medicine 10/06/20 08/12/21 Padmaja Arenas MD [address] [address] PCP - General Internal Medicine 08/13/21 Francisco Winter MD Specialist Cardiology 09/29/20 Jakub Akers MD, PHD Specialist Neurosurgery 03/23/21 Juan Hammond PA-C [address] [address] Specialist Neurosurgery 03/23/21 documented as of this encounter
--- OUTSIDE RECORDS SUMMARY | 2024-05-22 16:34 | XMS_ITS | Encounter Summary ---
Author Organization [facility] Address [address] [place] [address] Care Team Providers Care Case Picker Name Role Phone Sydnee Miranda DO Primary Care Pro vider Unavailable Jonas Cano MD Primary Care Provider Unavailab Virginia Ibarra MD Primary Care Provider Unavail able Sydnee Miranda DO Primary Care Pro vider Unavailable Jonas Cano MD Primary Care Provider Unavailab Francisco Mobley MD Unavailable [phone] Sekou Griffith MD Primary Care Provider Unavai Jakub Hahn MD, PHD Unavailable Unava ilable Juan Hammond PA-C Unavailable Padmaja Arenas MD Primary Care Provider [phone] Reason for Visit * Reason Onset Date Comments immunizations 10/06/2016 Encounter Details Date Type Department Care Team Description 10/06/2016 Telephone Adult [address] [address] Sydnee Miranda DO immunizations Social History Tobacco [...] encounter Miscellaneous Notes * Telephone Encounter - Carline Miller M.A. - 10/07/2016 4:56 PM EDT I explained the below message to pt - that we are awaiting a return call from Dr. Miller's office(pt actually corrected me at this point stating his name is Rauljhonatan actually) to see if this vaccine could be approved. Pt states Dr. Miller/Jose is declining to give this vaccine. I tried to explain to pt multiple times that I will route this message back to Dr. Delgadillo, pt statesthat Dr. Delgadillo cares more about making money off of her than she does about actually caring forher pts. I attempted to explain to pt several times that this is due to [facility] policy, pt states that this is nonsense and that Jayashree is only out to get money and nothing else. I offered two times to send pt to [facility] to lodge a formal complaint, pt states that this falls upon deaf ears and that I do not need to be rude. I attempted to explain to pt that I was not meaning to be rude, however pt continously did not allow me to finish my sentences. Pt then stated that she will be going to [facility] travel clinic for this vaccine. I advised pt to contact our office once she has the vaccine completed so that we may keep her immunizations UTD. Pt declined to do this, stating, why should I bother to call you if you're not the ones giving me the shot? I again tried to explain why it is important that we keep all aspects of the pt's medical record UTD. Pt again interrupted me, stating that this was a waste of time and ending the phone call. MARK Delgadillo. * Telephone Encounter - Florina Guillermo - 10/07/2016 4:53 PM EDT Patient returning phone call. Please call pt back @ [phone] * Telephone Encounter - Carline Miller M.A. - 10/07/2016 4:48 PM EDT Was speaking with pt, call was disconnected. Will try again later. Ext [phone] * Telephone Encounter - Jamie Lawrence - 10/07/2016 4:45 PM EDT Patient is calling to speak to the nurse in regards to pneumonia vaccine. Please contact at [phone] * Telephone Encounter - Ophelia Owusu M.A. - 10/06/2016 3:52 PM EDT Pt had Dr Miller's office send us his notes and lab results (on your desk). She is having his office call Medicare to see if she has medical necessity for pneumonia vaccine. Will let us know what they say. * Telephone Encounter - Geneva Tolentino - 10/06/2016 3:34 PM EDT 4 pages of lab work from Dr Miller's office is all she found/ no letter / this regarding pneumonia vaccine / documented in this encounter Plan of Treatment Not on file documented as of this encounter Visit Diagnoses Not on filedocumented in this encounter Care Teams Case Picker Relationship Specialty Start Date End Date Sydnee [...] Medicine 10/06/20 08/12/21 Padmaja Arenas MD [address] [place] [address] PCP - General Internal Medicine 08/13/21 Francisco Winter MD Specialist Cardiology 09/29/20 Jakub Akers MD, PHD Specialist Neurosurgery 03/23/21 Juan Hammond PA-C [address] [place] [address] Specialist Neurosurgery 03/23/21 documented as of this encounter
--- OUTSIDE RECORDS SUMMARY | 2024-05-22 16:34 | XMS_ITS | Clinical Summary ---
Author Organization [facility] Address [address] [place] [address] Care Team Providers Care Security Analyst Name Role Phone Sydnee Miranda DO Primary [...] age to complete this topic Care Teams Security Analyst Relationship Specialty Start Date End Date Sydnee Miranda DO PCP - General Ep Specialist 11/22/19
--- OUTSIDE RECORDS SUMMARY | 2024-05-22 16:34 | XMS_ITS | Encounter Summary ---
Author Organization [facility] Address [address] [place] [address] Care Team Providers Care Customer Service Advocate Name Role Phone Francisco Winter MD Unavailable [phone] Jakub Akers MD, PHD Unavailable Unava ilable Juan Hammond PA-C Unavailable [phone] Padmaja Arenas MD Primary Care Provider [phone] Reason for Visit * Reason Onset Date Comments lab test 04/20/2022 Encounter Details Date Type Department Care Team Description 04/20/2022 Telephone Internal Medicine - [address], [address] [place] [address] Padmaja Arenas MD [address] [place] [phone] lab test Social History Tobacco Use Types Packs/Day Years [...] Recorded In the last 10 days, have judy mejía been in contact with someone who was confirmed or suspected to have Coronavirus/COVID-19? No / Unsure 03/28/2022 2:15 PM EST documented as of this encounter Miscellaneous Notes * Telephone Encounter - Susie Hernández M.A. - 04/20/2022 3:04 PM EDT Mailed lab result to pt home * Telephone Encounter - Mat Guerra - 04/20/2022 2:52 PM EDT Patient would like her most recent lab results mailed to her home. documented in this encounter Plan of Treatment Not on file documented as of this encounter Visit Diagnoses Not on filedocumented in this encounter Care Teams Customer Service Advocate Relationship Specialty Start Date End Date Padmaja Arenas MD [address] [address] PCP - General Internal Medicine 08/13/21 Francisco Winter MD Specialist Cardiology 09/29/20 Jakub Akers MD, PHD Specialist Neurosurgery 03/23/21 Juan Hammond PA-C [address] [address] Specialist Neurosurgery 03/23/21 documented as of this encounter
--- OUTSIDE RECORDS SUMMARY | 2024-05-22 16:34 | XMS_ITS | Encounter Summary ---
Author Organization [facility] Address [address] [place] [address] Care Team Providers Care Clinic Coordinator Name Role Phone Francisco Winter MD Unavailable [phone] Jakub Akers MD, PHD Unavailable Unava ilable Juan Hammond PA-C Unavailable [phone] Padmaja Arenas MD Primary Care Provider [phone] Reason for Visit * Reason Onset Date Comments TEST RESULTS 11/19/2021 er follow up 11/19/2021 Encounter Details Date Type Department Care Team Description 11/19/2021 Telephone Internal Medicine - [address], [address] [place] [address] Padmaja Arenas MD [address] [place] [phone] TEST RESULTS; er follow up Social [...] 11/19/2021 3:58 PM EDT Pt went to [facility] on 11/18/2021 and would like to discuss her lab results documented in this encounter Plan of Treatment Not on file documented as of this encounter Visit Diagnoses Not on filedocumented in this encounter Care Teams Clinic Coordinator Relationship Specialty Start Date End Date Padmaja Arenas MD [address] [address] PCP - General Internal Medicine 08/13/21 Francisco Winter MD Specialist Cardiology 09/29/20 Jakub Akers MD, PHD Specialist Neurosurgery 03/23/21 Juan Hammond PA-C [address] [address] Specialist Neurosurgery 03/23/21 documented as of this encounter
--- OUTSIDE RECORDS SUMMARY | 2024-05-22 16:34 | XMS_ITS | Encounter Summary ---
Author Organization [facility] Address [address] [place] [address] Care Team Providers Care Food Service Order Clerk Name Role Phone Francisco Winter MD Unavailable [phone] Jakub Akers MD, PHD Unavailable Unava ilable Juan Hammond PA-C Unavailable [phone] Padmaja Arenas MD Primary Care Provider [phone] Reason for Visit * Reason Onset Date Comments refill request 01/12/2022 Encounter Details Date Type Department Care Team Description 01/12/2022 Refill Internal Medicine - [address], [address] [place] [address] Padmaja Arenas MD [address] [place] [phone] refill request Social History Tobacco Use Types [...] encounter Miscellaneous Notes * Telephone Encounter - Enedina Ho NV - 01/12/2022 12:00 PM EST Lab Results Component Value Date TSH 0.95 09/01/2021 TSH 2.14 05/17/2021 TSH 1.31 05/22/2020 TSH 2.98 03/29/2019 TSH 1.77 12/22/2016 * Telephone Encounter - Sven Griffiths - 01/12/2022 11:10 AM EST Martina 11/02/2021 Nov 02/24/2022 documented in this encounter Plan of Treatment Not on file documented as of this encounter Visit Diagnoses Not on filedocumented in this encounter Care Teams Food Service Order Clerk Relationship Specialty Start Date End Date Padmaja Arenas MD [address] [address] PCP - General Internal Medicine 08/13/21 Francisco Winter MD Specialist Cardiology 09/29/20 Jakub Akers MD, PHD Specialist Neurosurgery 03/23/21 Juan Hammond PA-C 175 [facility] [address] [place] [address] Specialist Neurosurgery 03/23/21 documented as of this encounter
--- OUTSIDE RECORDS SUMMARY | 2024-05-22 16:34 | XMS_ITS | Encounter Summary ---
Author Organization [facility] Address [address] [place] [address] Care Team Providers Care Multimedia Programmer Name Role Phone Sydnee Miranda DO Primary Care Pro vider Unavailable Jonas Cano MD Primary Care Provider Unavailab Francisco Mobley MD Unavailable [phone] Sekou Griffith MD Primary Care Provider Jakub Wilson MD, PHD Unavailable Unava Juan Guaman PA-C Unavailable [phone] Padmaja Arenas MD Primary Care Provider [phone] Reason for Visit * Reason Onset Date Comments Provider Call Back 02/21/2020 Encounter Details Date Type Department Care Team Description 02/21/2020 Telephone Physiatry - [address] [address] Sydnee Miranda DO Provider Call Back Social History Tobacco [...] Telephone Encounter - Carrie Luo R.N. - 02/21/2020 1:37 PM EST Pt has been having pain in her neck and scapula, baclofen is not working, lasts about 5 -6 hours. She is asking what she can do dueinr the day. She is very frustarted after a lifetime fo problems with no solutions Pt was seen by dr akers office and she was told they are looking for demylinating isssues and have not found anything Pt has no chest pain or SOB, denies any N/V/D or fever, no abd pain, has pain in the neck with Radiation and down into her arms and her scapula , no changes in urination or in bowel habits, c/o numbness or tingling in the arms which bis unachanged , has nl CSM, pt does not c/o dizziness now but does feel weakn and dizzy as she gets fatgiued Advised home care following the Neck pain Protocol. RN reinforced telephone consultation and advice. Reviewed with the patient the signs and symptoms to watch for that would require immediate attention. If symptoms change, worsen or increase in intensity, to call back immediately * Telephone Encounter - Sarah Conn - 02/21/2020 1:32 PM EST Caller requesting call back from provider: Is the caller the patient? YES If caller is not the patient, what is the callers name? N/A Callers relationship to patient? N/A If person calling is not the patient themselves, is there a verbal release in FYI or permanent comments for this person: YES Reason for call back: New meds Baclofen I'm on. Meds not lasting long enough. What can I do during the day. Caller offered to speak with the nurse for assistance: YES Response: Patient offered to speak with nurse for assistance and patient agreed. Message forwarded to nurse. documented in this encounter Plan of Treatment Not on file documented as of this encounter Visit Diagnoses Not on filedocumented in this encounter Care Teams Multimedia Programmer Relationship Specialty Start Date End Date Sydnee Miranda DO PCP - General Internal Medicine 12/25/17 06/16/20 Jonas Cano MD PCP - General Internal Medicine 06/17/20 10/05/20 Sekou Griffith MD PCP - General Internal Medicine 10/06/20 08/12/21 Padmaja Arenas MD [address] [place] [address] PCP - General Internal Medicine 08/13/21 Francisco Winter MD Specialist Cardiology 09/29/20 Jakub Akers MD, PHD Specialist Neurosurgery 03/23/21 Juan Hammond PA-C [address] [place] [address] Specialist Neurosurgery 03/23/21 documented as of this encounter
--- OUTSIDE RECORDS SUMMARY | 2024-05-22 16:34 | XMS_ITS | Encounter Summary ---
Author Organization [facility] Address [address] [place] [address] Care Team Providers Care Watch Inspector Final Movement Name Role Phone Sydnee Miranda DO Primary Care Pro vider Unavailable Jonas Cano MD Primary Care Provider Unavailab Virginia Ibarra MD Primary Care Provider Unavail able Sydnee Miranda DO Primary Care Pro vider Unavailable Jonas Cano MD Primary Care Provider Unavailab Francisco Mobley MD Unavailable [phone] Sekou Griffith MD Primary Care Provider LeighvaJakub Hooks MD, PHD Unavailable Unava ilJuan Starkey PA-C Unavailable [phone] Padmaja Arenas MD Primary Care Provider [phone] Reason for Visit * Reason Onset Date Comments Provider Call Back 03/17/2014 Encounter Details Date Type Department Care Team Description 03/17/2014 Telephone Physiatry - [address] [id number] Glenna Sneed MD [address] [place] [address] [place] [address] Provider Call Back Social History Tobacco Use [...] encounter Miscellaneous Notes * Telephone Encounter - Wendy Aponte 03/19/2014 8:18 AM EST To pcp * Telephone Encounter - Dyan Gaffney MD - 03/18/2014 12:45 PM EST Patient has refused all fibromyalgia medications including but not limited to Gabapentin , lyrica ,savella , cymbalta and all SSRIs , Amitriptyline and all NSRIs . I have no other medications to offer her. Thank you * Telephone Encounter - Kanchan Soria M.A. - 03/18/2014 11:49 AM EST I gave patient the message but I was unable at first to get entire message out. Patient became veryupset and with a very aggressive tone kept asking me question upon question about her care that I could not answer. Patient stated that Dr Negro was the one who was supposed to be handling her pain medication not for her fibromyalgia but for her herniated discs (she states that every disc except 6are herniated). Patient states that Dr Negro is not treating her, and that she did not even listento her when she came in and all she is worried about is herself and her licence. I listened for 10 minutes about patients thoughts about her past medical history and how [facility] doctors can not get anything together . I then interrupted her and excused myself from the conversation stating that I was just relaying a message and was not able to help her any further. * Telephone Encounter - Glenna Sneed MD - 03/18/2014 11:30 AM EST Kindly inform patient that I spoke with Dr. Delgadillo. We are in agreement that she should follow up with Rheumatology/Dr. Gaffney to try medications that are specific for fibromyalgia. We do not think narcotic medication including Tramadol is effective nor appropriate for treatment of fibromyalgia. I am not recommending spine injections because her pain is very diffuse, more consistent with fibromyalgia. Thank you. Telephone Information: Work Phone Not on file. Mobile Not on file. FYI to Dr. Gaffney. * Telephone Encounter - Sydnee Dang DO - 03/18/2014 11:15 AM EST No records brought in to me. I don't take patient records. I send them to MR but for any controlledsubstances they need to be sent to me directly. I don't recall seeing any records in the room but she certainly didn't give them to me * Telephone Encounter - Glenna Sneed MD - 03/18/2014 9:19 AM EST Patient claimed during visit that she brought up to 2 inches thick of medical records. We have called/gone up Dr. Delgadillo and Dr. Gaffney' offices that same day and told that they do not have any records except [address] Angel[address] office. We have called scanning and they do not have any also. vishal Harmon for making calls to get PSSP notes and MRIs. I will have to coordinate with Dr. Delgadillo about this patient's care. * Telephone Encounter - Eden Bustillo L.P.N. - 03/17/2014 4:15 PM EST MRI on Dr Salas desk Message to Dr Negro * Telephone Encounter - Eden SuhP.NMir - 03/17/2014 2:57 PM EST Called patient line busy i faxed request to [facility] for office and emg notes I called and left a message @ Dr Rose office for office notes to be faxed to me Spoke to Anai in rheumatology and they do not have records in their dept I called And spoke to Ninfa in Dr Elie Dang office and they do not have any records Juni records were received on 03/15/14 and sent to Yulia Tapia to be reviewed for scanning Note from Dr Rose office In Dr Salas office Called [facility] for MRI's not done there,not done @ [facility],MRI center [facility] MRI Patient Called and states that her MRI's were done @ [facility] ,explained that I will call [facility] To get the MRI reports Called [facility] Spoke to Lisa in the MRI dept she will fax MRI'S to me * Telephone Encounter - Juliana Bruce - 03/17/2014 2:32 PM EST Patient calling upset because she says that her consult last week with Dr. Negro was basically a waste because her records weren't there? Patient was not sure what records were missing as she was seen by providers within [facility]. Patient is frustrated and doesn't understand what the problem is. [phone]. documented in this encounter Plan of Treatment Not on file documented as of this encounter Visit Diagnoses Not on filedocumented in this encounter Care Teams Watch Inspector Final Movement Relationship Specialty Start Date End Date Sydnee [...] Medicine 10/06/20 08/12/21 Padmaja Arenas MD [address] [place] [address] PCP - General Internal Medicine 08/13/21 Francisco Winter MD Specialist Cardiology 09/29/20 Jakub Akers MD, PHD Specialist Neurosurgery 03/23/21 Juan Hammond PA-C [address] [place] [address] Specialist Neurosurgery 03/23/21 documented as of this encounter
--- OUTSIDE RECORDS SUMMARY | 2024-05-22 16:34 | XMS_ITS | Encounter Summary ---
Author Organization [facility] Address [address] [place] [address] Care Team Providers Care Grooving Machine Operator Name Role Phone Sydnee Miranda DO Primary Care Pro vider Unavailable Jonas Cano MD Primary Care Provider Unavailab Virginia Ibarra MD Primary Care Provider Unavail able Sydnee Miranda DO Primary Care Pro vider Unavailable Jonas Cano MD Primary Care Provider Unavailab Francisco Mobley MD Unavailable [phone] Sekou Griffith MD Primary Care Provider LeighvaJakub Hooks MD, PHD Unavailable Unava ilJuan Starkey PA-C Unavailable [phone] Padmaja Arenas MD Primary Care Provider [phone] Reason for Referral * EXTERNAL (Routine) - Authorized/Booked Specialty Diagnoses / Procedures Referred By Tavo glover Referred To Contact Endocrinology Procedures REFERRAL TO ENDOCRINOLOGY Sydnee Miranda DO [address] [place], [place] [id number] [place] [address] [address] [place] [address] Referral ID Status Reason Start Date Expiration Date V isits Requested Visits Authorized SEE NOTE Authorized/B ooked 01/17/2017 04/19/2017 1 1 Encounter Details Date Type Department Care Team Description 01/17/2017 Orders Only Adult Medicine [address] [address] Sydnee Miranda DO Social History Tobacco Use [...] on filedocumented in this encounter Care Teams Grooving Machine Operator Relationship Specialty Start Date End [...] Internal Medicine 10/06/20 08/12/21 Padmaja Arenas MD [address] [place] [address] PCP - General Internal Medicine 08/13/21 Francisco Winter MD Specialist Cardiology 09/29/20 Jakub Akers MD, PHD Specialist Neurosurgery 03/23/21 Juan Hammond PA-C [address] [address] Specialist Neurosurgery 03/23/21 documented as of this encounter
--- OUTSIDE RECORDS SUMMARY | 2024-05-22 16:34 | XMS_ITS | Encounter Summary ---
Author Organization [facility] Address [address] [place] [address] Care Team Providers Care Range Mounter Name Role Phone Sydnee Miranda DO Primary Care Pro vider Unavailable Jonas Cano MD Primary Care Provider Unavailab Francisco Mobley MD Unavailable [phone] Sekou Griffith MD Primary Care Provider Jakub Wilson MD, PHD Unavailable Unava Juan Guaman PA-C Unavailable [phone] Padmaja Arenas MD Primary Care Provider [phone] Reason for Visit * Reason Onset Date Comments Medication Review 07/25/2019 acyclovir (ZOV IRAX) 200 MG capsule Encounter Details Date Type Department Care Team Description 07/25/2019 Telephone Adult [address] [address] Sydnee Miranda DO Medication Review (acyclovir (ZOVIRAX) 200 MG capsule) Social History Tobacco Use Types Packs/Day Years [...] encounter Miscellaneous Notes * Telephone Encounter - Ina Hallie - 07/26/2019 2:01 PM EDT Jose from [facility] to calling to check on that status for Acyclovir. Please call [phone] * Telephone Encounter - Carolynn Patiño L.P.N. - 07/26/2019 10:33 AM EDT Please clarify acyclovir sig. Script states to take daily x 10 days but quantity is for #30. Thank you. * Telephone Encounter - Shirley Shaffer - 07/25/2019 1:16 PM EDT Who is calling? A pharmacist: Pharmacy: [facility] Pharmacist Name: [facility] Name of the medication acyclovir (ZOVIRAX) 200 MG capsule What is the specific problem or interaction? Per pharmacist they need clarification on this medication the directions state take 1 cap daily for 10 days but it was for 30 day supply not sure if this is incorrect? If the patient is having a problem with taking the med - how long has the problem been going on? N/A documented in this encounter Plan of Treatment Not on file documented as of this encounter Visit Diagnoses Not on filedocumented in this encounter Care Teams Range Mounter Relationship Specialty Start Date End Date Sydnee Miranda DO PCP - General Internal Medicine 12/25/17 06/16/20 Jonas Cano MD PCP - General Internal Medicine 06/17/20 10/05/20 Sekou Griffith MD PCP - General Internal Medicine 10/06/20 08/12/21 Padmaja Arenas MD [address] [place] [address] PCP - General Internal Medicine 08/13/21 Francisco Winter MD Specialist Cardiology 09/29/20 Jakub Akers MD, PHD Specialist Neurosurgery 03/23/21 Juan Hammond PA-C [address] [place] [address] Specialist Neurosurgery 03/23/21 documented as of this encounter
--- OUTSIDE RECORDS SUMMARY | 2024-05-22 16:34 | XMS_ITS | Encounter Summary ---
Author Organization [facility] Address [address] [place] [address] Care Team Providers Care Retrimmer Name Role Phone Sydnee Miranda DO Primary Care Pro vider Unavailable Jonas Cano MD Primary Care Provider Unavailab Virginia Ibarra MD Primary Care Provider Unavail able Sydnee Miranda DO Primary Care Pro vider Unavailable Jonas Cano MD Primary Care Provider Unavailab Francisco Mobley MD Unavailable Sekou Griffith MD Primary Care Provider LeighvaJakub Hooks MD, PHD Unavailable Unava ilable Juna Hammond PA-C Unavailable [phone] Padmaja Arenas MD Primary Care Provider [phone] Encounter Details Date Type Department Care Team Description 03/15/2014 Transfer Records Medical Records [address] [place] [address] Abstract, Provider Social History Tobacco Use Types [...] on filedocumented in this encounter Care Teams Retrimmer Relationship Specialty Start Date End Date Sydnee [...] Medicine 10/06/20 08/12/21 Padmaja Arenas MD [address] [place] [address] PCP - General Internal Medicine 08/13/21 Francisco Winter MD Specialist Cardiology 09/29/20 Jakub Akers MD, PHD Specialist Neurosurgery 03/23/21 Juan Hammond PA-C [address] [address] Specialist Neurosurgery 03/23/21 documented as of this encounter
--- OUTSIDE RECORDS SUMMARY | 2024-05-22 16:34 | XMS_ITS | Encounter Summary ---
Author Organization [facility] Address [address] [place] [address] Care Team Providers Care Candle Wrapper Name Role Phone Sydnee Miranda DO Primary Care Pro vider Unavailable Jonas Cano MD Primary Care Provider Unavailab Virginia Ibarra MD Primary Care Provider Unavail able Sydnee Miranda DO Primary Care Pro vider Unavailable Jonas Cano MD Primary Care Provider Unavailab Francisco Mobley MD Unavailable [phone] Sekou Griffith MD Primary Care Provider LeighvaJakub Hooks MD, PHD Unavailable Unava ilJuan Starkey PA-C Unavailable [phone] Padmaja Arenas MD Primary Care Provider [phone] Reason for Visit * Reason Onset Date Comments Urine Drug Screen 12/22/2016 Encounter Details Date Type Department Care Team Description 12/22/2016 Telephone Adult [address] [address] Sydnee Miranda DO Urine Drug Screen Social History Tobacco Use Types Packs/Day Years [...] Telephone Encounter - Ophelia Owusu M.A. - 12/23/2016 10:15 AM EST I spoke with the pt, she keeps saying that she was never told to do it right away. And she does notunderstand why this is happening. I explained that she has an option of writing to the committee and see if they will reverse this violation. Pt states she may do this. * Telephone Encounter - Arlen Clay R.N. - 12/23/2016 8:15 AM EST Called patient and left voice message for pt to return call. * Telephone Encounter - Sydnee Dang DO - 12/22/2016 9:55 PM EST Pt saw me on 12/16. Did not complete uds as discussed. Pls call her and I'll let her know its a violation * Telephone Encounter - Wendy Bernard M.A. - 12/22/2016 3:38 PM EST I noticed pt was seen 12/16/16 UDS was ordered, she did not comply documented in this encounter Plan of Treatment Not on file documented as of this encounter Visit Diagnoses Not on filedocumented in this encounter Care Teams Candle Wrapper Relationship Specialty Start Date End Date Sydnee [...] Padmaja Arenas MD [address] [address] PCP - General Internal Medicine 08/13/21 Francisco Winter MD Specialist Cardiology 09/29/20 Jakub Akers MD, PHD Specialist Neurosurgery 03/23/21 Juan Hammond PA-C [address] [address] Specialist Neurosurgery 03/23/21 documented as of this encounter
--- OUTSIDE RECORDS SUMMARY | 2024-05-22 16:34 | XMS_ITS | Encounter Summary ---
Author Organization [facility] Address [address] [place] [address] Care Team Providers Care Fluid Designer Name Role Phone Sydnee Miranda DO Primary Care Pro vider Unavailable Jonas Cano MD Primary Care Provider Unavailab Francisco Mobley MD Unavailable Sekou Griffith MD Primary Care Provider Jakub Wilson MD, PHD Unavailable Unava ilJuan Starkey PA-C Unavailable [phone] Padmaja Arenas MD Primary Care Provider [phone] Encounter Details Date Type Department Care Team Description 06/16/2020 Oven Heater Helper Report Medical Records [address] [place] [address] Social History Tobacco Use Types Packs/Day Years [...] have Coronavirus / COVID-19? No / Unsure 06/17/2020 2:03 PM EDT documented as of this encounter Plan of Treatment Not on file documented as of this encounter Visit Diagnoses Not on filedocumented in this encounter Care Teams Fluid Designer Relationship Specialty Start Date End Date Sydnee Miranda DO PCP - General Internal Medicine 11/19/18 5/11/21 Jonas Cano MD PCP - General Internal Medicine 06/17/20 10/05/20 Sekou Griffith MD PCP - General Internal Medicine 10/06/20 08/12/21 Padmaja Arenas MD [address] [address] PCP - General Internal Medicine 08/13/21 Francisco Winter MD Specialist Cardiology 09/29/20 Jakub Akers MD, PHD Specialist Neurosurgery 03/23/21 Juan Hammond PA-C [address] [place] [address] Specialist Neurosurgery 03/23/21 documented as of this encounter
--- OUTSIDE RECORDS SUMMARY | 2024-05-22 16:34 | XMS_ITS | Encounter Summary ---
Author Organization [facility] Address [address] [place] [address] Care Team Providers Care Maintenance Of Way Clerk Name Role Phone Francisco Winter MD Unavailable [phone] Jakub Akers MD, PHD Unavailable Unava ilable Juan Hammond PA-C Unavailable [phone] Padmaja Arenas MD Primary Care Provider [phone] Reason for Visit * Reason Onset Date Comments APPOINTMENT 08/24/2021 Encounter Details Date Type Department Care Team Description 08/24/2021 Telephone Internal Medicine [address], [address] [place] [address] Padmaja Arenas MD [address] [place] [phone] APPOINTMENT Social History Tobacco Use Types Packs/Day [...] on filedocumented in this encounter Care Teams Maintenance Of Way Clerk Relationship Specialty Start Date End Date Padmaja Arenas MD [address] [address] PCP - General Internal Medicine 08/13/21 Francisco Winter MD Specialist Cardiology 09/29/20 Jakub Akers MD, PHD Specialist Neurosurgery 03/23/21 Juan Hammond PA-C [address] [address] Specialist Neurosurgery 03/23/21 documented as of this encounter
--- OUTSIDE RECORDS SUMMARY | 2024-05-22 16:34 | XMS_ITS | Encounter Summary ---
Author Organization [facility] Address [address] [place] [address] Care Team Providers Care Network Cable Installer Name Role Phone Sydnee Miranda DO Primary Care Pro vider Unavailable Jonas Cano MD Primary Care Provider Unavailab Virginia Ibarra MD Primary Care Provider Unavail able Sydnee Miranda DO Primary Care Pro vider Unavailable Jonas Cano MD Primary Care Provider Unavailab Francisco Mobley MD Unavailable [phone] Sekou Griffith MD Primary Care Provider LeighvaJakub Hooks MD, PHD Unavailable Unava ilJuan Starkey PA-C Unavailable [phone] Padmaja Arenas MD Primary Care Provider [phone] Encounter Details Date Type Department Care Team Description 03/18/2014 Orders Only Adult Medicine [address] [address] Sydnee Miranda DO Postmenopausal (Primary Dx) Social History Tobacco Use Types [...] as of this encounter Visit Diagnoses Diagnosis Postmenopausal- Primary Asymptomatic postmenopausal status (age-related) (natural) documented in this encounter Care Teams Network Cable Installer Relationship Specialty Start Date End Date [...] Medicine 10/06/20 08/12/21 Padmaja Arenas MD [address] [place] [address] PCP - General Internal Medicine 08/13/21 Francisco Winter MD Specialist Cardiology 09/29/20 Jakub Akers MD, PHD Specialist Neurosurgery 03/23/21 Juan Hammond PA-C [address] [facility] [address] [place] [address] Specialist Neurosurgery 03/23/21 documented as of this encounter
--- OUTSIDE RECORDS SUMMARY | 2024-05-22 16:34 | XMS_ITS | Encounter Summary ---
Author Organization [facility] Address [address] [place] [address] Care Team Providers Care Log Hauler Name Role Phone Francisco Winter MD Unavailable [phone] Jakub Akers MD, PHD Unavailable Unava ilable Juan Hammond PA-C Unavailable [phone] Padmaja Arenas MD Primary Care Provider [phone] Encounter Details Date Type Department Care Team Description 08/25/2021 Orders Only Internal Medicine - [address], [address] [place] [address] Padmaja Arenas MD [address] [place] [phone] Hip pain Social History Tobacco Use [...] thigh documented in this encounter Care Teams Log Hauler Relationship Specialty Start Date End Date Padmaja Arenas MD [address] [place] [address] PCP - General Internal Medicine 08/13/21 Francisco Winter MD Specialist Cardiology 09/29/20 Jakub Akers MD, PHD Specialist Neurosurgery 03/23/21 Juan Hammond PA-C [address] [address] Specialist Neurosurgery 03/23/21 documented as of this encounter
--- OUTSIDE RECORDS SUMMARY | 2024-05-22 16:34 | XMS_ITS | Encounter Summary ---
Author Organization [facility] Address [address] [place] [address] Care Team Providers Care Handle Sander Operator Name Role Phone Francisco Winter MD Unavailable [phone] Jakub Akers MD, PHD Unavailable Unava ilable Juan Hammond PA-C Unavailable [phone] Padmaja Arenas MD Primary Care Provider [phone] Encounter Details Date Type Department Care Team Description 12/24/2021 Telephone Internal Medicine - [place] [address] [facility], [address] [place], [place] [id number] Padmaja Arenas MD [address] [place] [phone] Social History Tobacco Use Types Packs/Day [...] on filedocumented in this encounter Care Teams Handle Sander Operator Relationship Specialty Start Date End Date Padmaja Arenas MD [address] [facility] [address] [place] [address] PCP - General Internal Medicine 08/13/21 Francisco Winter MD Specialist Cardiology 09/29/20 Jakub Akers MD, PHD Specialist Neurosurgery 03/23/21 Juan Hammond PA-C [address] [place] [address] Specialist Neurosurgery 03/23/21 documented as of this encounter
--- OUTSIDE RECORDS SUMMARY | 2024-05-22 16:34 | XMS_ITS | Encounter Summary ---
Author Organization [facility] Address [address] [place] [address] Care Team Providers Care Child Protective Investigator Name Role Phone Sydnee Miranda DO Primary Care Pro vider Unavailable Jonas Cano MD Primary Care Provider Unavailab Francisco Mobley MD Unavailable [phone] Sekou Griffith MD Primary Care Provider Jakub Wilson MD, PHD Unavailable Unava ilJuan Starkey PA-C Unavailable [phone] Padmaja Arenas MD Primary Care Provider [phone] Encounter Details Date Type Department Care Team Description 04/15/2019 Wallpaper Cleaner Report Medical Records [address] [place] [address] Ina Pineda CNM Social History Tobacco Use [...] on filedocumented in this encounter Care Teams Child Protective Investigator Relationship Specialty Start Date End Date Sydnee Miranda DO PCP - General Internal Medicine 12/25/17 06/16/20 Jonas Cano MD PCP - General Internal Medicine 06/17/20 10/05/20 Sekou Griffith MD PCP - General Internal Medicine 10/06/20 08/12/21 Padmaja Arenas MD [address] [address] PCP - General Internal Medicine 08/13/21 Francisco Winter MD Specialist Cardiology 09/29/20 Jakub Akers MD, PHD Specialist Neurosurgery 03/23/21 Juan Hammond PA-C [address] [address] Specialist Neurosurgery 03/23/21 documented as of this encounter
--- OUTSIDE RECORDS SUMMARY | 2024-05-22 16:34 | XMS_ITS | Encounter Summary ---
Author Organization [facility] Address [address] [place] [address] Care Team Providers Care Primer Inspector Name Role Phone Sydnee Miranda DO Primary Care Pro vider Unavailable Jonas Cano MD Primary Care Provider Unavailab Francisco Mobley MD Unavailable [phone] Sekou Griffith MD Primary Care Provider Jakub Wilson MD, PHD Unavailable Unava ilJuan Starkey PA-C Unavailable [phone] Padmaja Arenas MD Primary Care Provider [phone] Encounter Details Date Type Department Care Team Description 02/20/2020 Coffee Attendant Report Medical Records [address] [place] [address] Juan Hammond PA-C 175 [facility] [address] [place] [address] Social History Tobacco Use Types Packs/Day Years [...] on filedocumented in this encounter Care Teams Primer Inspector Relationship Specialty Start Date End Date Sydnee Miranda DO PCP - General Internal Medicine 12/25/17 06/16/20 Jonas Cano MD PCP - General Internal Medicine 06/17/20 10/05/20 Sekou Griffith MD PCP - General Internal Medicine 10/06/20 08/12/21 Padmaja Arenas MD 175 [place] [address] PCP - General Internal Medicine 08/13/21 Francisco Winter MD Specialist Cardiology 09/29/20 Jakub Akers MD, PHD Specialist Neurosurgery 03/23/21 Juan Hammond PA-C 175 [place] [address] Specialist Neurosurgery 03/23/21 documented as of this encounter
--- OUTSIDE RECORDS SUMMARY | 2024-05-22 16:34 | XMS_ITS | Encounter Summary ---
Author Organization [facility] Address [address] [place] [address] Care Team Providers Care Shirt Hemmer Name Role Phone Sydnee Miranda DO Primary [...] Padmaja Arenas MD Primary Care Provider [phone] Encounter Details Date Type Department Care Team Description 06/23/2016 Hospital Medical Records [address] Social History Tobacco Use Types Packs/Day Years [...] Name Priority Date/Time Associated Diagnosis Comments OUTSIDE EKG Routine 06/23/2016 documented in this encounter Results * OUTSIDE EKG (06/23/2016) Provider Abstract CARDIOLOGY documented in this encounter Visit Diagnoses Not on filedocumented in this encounter Care Teams Shirt Hemmer Relationship Specialty Start Date End Date Sydnee [...] 10/06/20 08/12/21 Padmaja Arenas MD 175 [facility] [address] [place] [address] PCP - General Internal Medicine 08/13/21 Francisco Winter MD Specialist Cardiology 09/29/20 Jakub Akers MD, PHD Specialist Neurosurgery 03/23/21 Juan Hammond PA-C 175 [facility] [address] [place] [address] Specialist Neurosurgery 03/23/21 documented as of this encounter
--- OUTSIDE RECORDS SUMMARY | 2024-05-22 16:34 | XMS_ITS | Encounter Summary ---
Author Organization [facility] Address [address] [place] [address] Care Team Providers Care Change Agent Name Role Phone Francisco Winter MD Unavailable [phone] Jakub Akers MD, PHD Unavailable Unava ilable Juan Hammond PA-C Unavailable [phone] Padmaja Arenas MD Primary Care Provider [phone] Reason for Visit * Reason Onset Date Comments APPOINTMENT 08/24/2021 Encounter Details Date Type Department Care Team Description 08/24/2021 Telephone Internal Medicine [address], [address] [place] [address] Padmaja Arenas MD [address] [place] [phone] APPOINTMENT Social History Tobacco Use Types [...] on filedocumented in this encounter Care Teams Change Agent Relationship Specialty Start Date End Date Padmaja Arenas MD [address] [address] PCP - General Internal Medicine 08/13/21 Francisco Winter MD Specialist Cardiology 09/29/20 Jakub Akers MD, PHD Specialist Neurosurgery 03/23/21 Juan Hammond PA-C [address] [address] Specialist Neurosurgery 03/23/21 documented as of this encounter
--- OUTSIDE RECORDS SUMMARY | 2024-05-22 16:34 | XMS_ITS | Encounter Summary ---
Author Organization [facility] Address [address] [place] [address] Care Team Providers Care Homeworker Name Role Phone Francisco Winter MD Unavailable [phone] Jakub Akers MD, PHD Unavailable Unava ilable Juan Hammond PA-C Unavailable [phone] Padmaja Arenas MD Primary Care Provider [phone] Encounter Details Date Type Department Care Team Description 05/11/2022 Visual Effects Artist Report Medical Records [address] [place] [address] Lewis Schroeder MD Social History Tobacco Use Types Packs/Day [...] on filedocumented in this encounter Care Teams Homeworker Relationship Specialty Start Date End Date Padmaja Arenas MD [address] [id number] PCP - General Internal Medicine 08/13/21 Francisco Winter MD Specialist Cardiology 09/29/20 Jakub Akers MD, PHD Specialist Neurosurgery 03/23/21 Juan Hammond PA-C [address] [id number] Specialist Neurosurgery 03/23/21 documented as of this encounter
--- OUTSIDE RECORDS SUMMARY | 2024-05-22 16:34 | XMS_ITS | Encounter Summary ---
Author Organization [facility] Address [address] [place] [address] Care Team Providers Care Novelty Chain Maker Name Role Phone Sydnee Miranda DO Primary Care Pro vider Unavailable Jonas Cano MD Primary Care Provider Unavailab Francisco Mobley MD Unavailable [phone] Sekou Griffith MD Primary Care Provider LeighvaJakub Hooks MD, PHD Unavailable Unava ilJuan Starkey PA-C Unavailable [phone] Padmaja Arenas MD Primary Care Provider [phone] Reason for Referral * EXTERNAL (Routine) - Authorized/Booked Specialty Diagnoses / Procedures Referred By Contshanthi t Referred To Contact Physical Therapy Diagnoses Spondylosis of cervical region without myelopathy or radiculopathy Primary osteoarthritis of both knees Procedures REFERRAL TO PHYSICAL THERAPY Jone Maloney MD [address] [place], [place] [address]ab., [place] Referral ID Status Reason Start Date Expiration Date V isits Requested Visits Authorized SEE NOTE Authorized/B ooked 02/21/2020 06/13/2020 1 1 Reason for Visit * Reason Onset Date Comments Spa Associate Feedback 02/21/2020 Physical Therapy Encounter Details Date Type Department Care Team Description 02/21/2020 Telephone [place] [address] Jone Maloney MD Spa Associate Feedback (Physical Therapy) Social History Tobacco Use Types Packs/Day Years [...] * Telephone Encounter - Juliana Janis - 02/21/2020 1:34 PM EST Please review this patients new referral request. The referral has been pended. Please complete thefollowing: If approved> sign order If denied>please give instructions and route to your practice nursing pool. Practice nurse should inform referrals and the patient if denied. * Telephone Encounter - Sarah Conn - 02/21/2020 1:27 PM EST Request for a referral to a [facility] Specialist for a patient with a [facility] PCP. If patient does NOT have a [facility] PCP they must obtain a referral from their PCP before being seen-do not submit request to Referrals department-contact patient. Specialty patient is being referred to: Referral to PT Name of Specialist patient is seeing: Mitchel CHANCE Reason/diagnosis for visit: Neck Pain Date of appoinment: N/A No appt made yet. If retro, date referral needs to start: N/A Sydnee Smith Payor: MEDICARE-MS / Plan: MEDICARE-MS / Product Type: MEDICARE [id number] documented in this encounter Plan of Treatment Not on file documented as of this encounter Visit Diagnoses Diagnosis Spondylosis of cervical region without myelopathy or radiculopathy- Primary Cervical spondylosis without myelopathy Primary osteoarthritis of both knees Primary localized osteoarthrosis, lower leg documented in this encounter Care Teams Novelty Chain Maker Relationship Specialty Start Date End Date Sydnee Miranda DO PCP - General Internal Medicine 12/25/17 06/16/20 Jonas Cano MD PCP - General Internal Medicine 06/17/20 10/05/20 Sekou Griffith MD PCP - General Internal Medicine 10/06/20 08/12/21 Padmaja Arenas MD 175 [place] [address] PCP - General Internal Medicine 08/13/21 Francisco Winter MD Specialist Cardiology 09/29/20 Jakub Akers MD, PHD Specialist Neurosurgery 03/23/21 Juan Hammond PA-C 175 [place] [address] Specialist Neurosurgery 03/23/21 documented as of this encounter
--- OUTSIDE RECORDS SUMMARY | 2024-05-22 16:34 | XMS_ITS | Encounter Summary ---
Author Organization [facility] Address [address] [place] [address] Care Team Providers Care Jigger Artisan Name Role Phone Sydnee Miranda DO Primary Care Pro vider Unavailable Jonas Cano MD Primary Care Provider Unavailab Virginia Ibarra MD Primary Care Provider Unavail able Sydnee Miranda DO Primary Care Pro vider Unavailable Jonas Cano MD Primary Care Provider Unavailab Francisco Mobley MD Unavailable [phone] Sekou Griffith MD Primary Care Provider LeighvaJakub Hooks MD, PHD Unavailable Unava ilJuan Starkey PA-C Unavailable [phone] Padmaja Arenas MD Primary Care Provider [phone] Encounter Details Date Type Department Care Team Description 02/16/2016 [facility] Medical Records [address] [place] [address] Abstract, Provider Social History Tobacco Use Types [...] on filedocumented in this encounter Care Teams Jigger Artisan Relationship Specialty Start Date End Date Sydnee [...] Medicine 10/06/20 08/12/21 Padmaja Arenas MD 175 [place] [address] PCP - General Internal Medicine 08/13/21 Francisco Winter MD Specialist Cardiology 09/29/20 Jakub Akers MD, PHD Specialist Neurosurgery 03/23/21 Juan Hammond PA-C [address] [address] Specialist Neurosurgery 03/23/21 documented as of this encounter
--- OUTSIDE RECORDS SUMMARY | 2024-05-22 16:35 | XMS_ITS | Encounter Summary ---
Author Organization [facility] Address [address] [place] [address] Care Team Providers Care Weighing Station Operator Name Role Phone Francisco Winter MD Unavailable Jakub Akers MD, PHD Unavailable Unava ilable Juan Hammond PA-C Unavailable [phone] Padmaja Arenas MD Primary Care Provider [phone] Reason for Visit * Reason Onset Date Comments refill request 07/26/2023 Encounter Details Date Type Department Care Team Description 07/26/2023 Refill Internal Medicine - [address], [address] [place], [place] [phone] Padmaja Arenas MD [address] [place] [phone] refill request Social History Tobacco Use [...] Telephone Encounter - Erica Jordan M.A. - 07/27/2023 10:02 AM EDT [place] 02/21/23 NOV 08/22/23 Lab Results Component Value Date TSH 1.75 02/21/2023 * Telephone Encounter - Mat Guerra - 07/26/2023 2:51 PM EDT ESSIE 02/21/23 NOV 08/22/23 documented in this encounter Plan of Treatment Not on file documented as of this encounter Visit Diagnoses Not on filedocumented in this encounter Care Teams Weighing Station Operator Relationship Specialty Start Date End Date Padmaja Arenas MD [address] [place] [address] PCP - General Internal Medicine 08/13/21 Francisco Winter MD Specialist Cardiology 09/29/20 Jakub Akers MD, PHD Specialist Neurosurgery 03/23/21 uJan Hammond PA-C [address] [address] Specialist Neurosurgery 03/23/21 documented as of this encounter
--- OUTSIDE RECORDS SUMMARY | 2024-05-22 16:35 | XMS_ITS | Encounter Summary ---
Author Organization [facility] Address [address] [place] [address] Care Team Providers Care Wireless Sales Manager Name Role Phone Sydnee Miranda DO Primary Care Pro vider Unavailable Jonas Cano MD Primary Care Provider Unavailab Francisco Mobley MD Unavailable Sekou Griffith MD Primary Care Provider UnavaJakub Hooks MD, PHD Unavailable Unava ilable Juan Hammond PA-C Unavailable Padmaja Arenas MD Primary Care Provider [phone] Encounter Details Date Type Department Care Team Description 02/22/2019 Telephone Vascular Surgery - [address] [place] [phone] Michael Cabral MD Social History Tobacco [...] on filedocumented in this encounter Care Teams Wireless Sales Manager Relationship Specialty Start Date End Date Sydnee Miranda DO PCP - General Internal Medicine 12/25/17 06/16/20 Jonas Cano MD PCP - General Internal Medicine 06/17/20 10/05/20 Sekou Griffith MD PCP - General Internal Medicine 10/06/20 08/12/21 Padmaja Arenas MD 175 [place] [address] PCP - General Internal Medicine 08/13/21 Francisco Winter MD Specialist Cardiology 09/29/20 Jakub Akers MD, PHD Specialist Neurosurgery 03/23/21 Juan Hammond PA-C [address] [address] Specialist Neurosurgery 03/23/21 documented as of this encounter
--- OUTSIDE RECORDS SUMMARY | 2024-05-22 16:35 | XMS_ITS | Encounter Summary ---
Author Organization [facility] Address [address] [place] [address] Care Team Providers Care Inspector Machined Parts Name Role Phone Francisco Winter MD Unavailable [phone] Jakub Akers MD, PHD Unavailable Unava ilable Juan Hammond PA-C Unavailable [phone] Padmaja Arenas MD Primary Care Provider [phone] Reason for Visit * Reason Onset Date Comments refill request 04/18/2023 Encounter Details Date Type Department Care Team Description 04/18/2023 Refill Internal Medicine - [place] 175 [facility], [address] [place], [place] [phone] Padmaja Arenas MD [address] [place] [phone] refill request Social History Tobacco Use [...] on filedocumented in this encounter Care Teams Inspector Machined Parts Relationship Specialty Start Date End Date Padmaja Arenas MD 175 [facility] [address] [place], [place] [phone] PCP - General Internal Medicine 08/13/21 Francisco Winter MD Specialist Cardiology 09/29/20 Jakub Akers MD, PHD Specialist Neurosurgery 03/23/21 Juan Hammond PA-C [address] [place] [address] Specialist Neurosurgery 03/23/21 documented as of this encounter
--- OUTSIDE RECORDS SUMMARY | 2024-05-22 16:35 | XMS_ITS | Encounter Summary ---
Author Organization [facility] Address [address] [place] [address] Care Team Providers Care List Of First Job Ideas Name Role Phone Jonas Cano MD Primary Care Provider Unavailab Francisco Mobley MD Unavailable [phone] Sekou Griffith MD Primary Care Provider UnavaJakub Hooks MD, PHD Unavailable Unava ilable Juan Hammond PA-C Unavailable [phone] Padmaja Arenas MD Primary Care Provider [phone] Encounter Details Date Type Department Care Team Description 07/24/2020 Financial Sales Representative Report Medical Records [address] [place] [address] Rich Marcum Social History Tobacco Use Types Packs/Day Years [...] on filedocumented in this encounter Care Teams List Of First Job Ideas Relationship Specialty Start Date End Date Jonas Caon MD PCP - General Internal Medicine 06/17/20 10/05/20 Sekou Griffith MD PCP - General Internal Medicine 10/06/20 08/12/21 Padmaja Arenas MD [address] [place] [address] [place] [address] PCP - General Internal Medicine 08/13/21 Francisco Winter MD Specialist Cardiology 09/29/20 Jakub Akers MD, PHD Specialist Neurosurgery 03/23/21 Juan Hammond PA-C [address] [place] [address] Specialist Neurosurgery 03/23/21 documented as of this encounter
--- OUTSIDE RECORDS SUMMARY | 2024-05-22 16:35 | XMS_ITS | Encounter Summary ---
Author Organization [facility] Address [address] [place] [address] Care Team Providers Care Leather Stripping Machine Operator Name Role Phone Francisco Winter MD Unavailable [phone] Jakub Akers MD, PHD Unavailable Unava ilable Juan Hammond PA-C Unavailable [phone] Padmaja Arenas MD Primary Care Provider [phone] Encounter Details Date Type Department Care Team Description 04/26/2023 Orders Only Internal Medicine - [address], [address] [place] [address] Padmaja Arenas MD [address] [place] [phone] Routine medical exam Social History Tobacco [...] facility documented in this encounter Care Teams Leather Stripping Machine Operator Relationship Specialty Start Date End Date Padmaja Arenas MD [address] [place] [address] PCP - General Internal Medicine 08/13/21 Francisco Winter MD Specialist Cardiology 09/29/20 Jakub Akers MD, PHD Specialist Neurosurgery 03/23/21 Juna Hammond PA-C [address] [place] [address] Specialist Neurosurgery 03/23/21 documented as of this encounter
--- OUTSIDE RECORDS SUMMARY | 2024-05-22 16:35 | XMS_ITS | Encounter Summary ---
Author Organization [facility] Address [address] [place] [address] Care Team Providers Care Transit Planner Name Role Phone Sydnee Miranda DO Primary Care Pro vider Unavailable Jonas Cano MD Primary Care Provider Unavailab Virginia Ibarra MD Primary Care Provider Unavail able Sydnee Miranda DO Primary Care Pro vider Unavailable Jonas Cano MD Primary Care Provider Unavailab Francisco Mobley MD Unavailable Sekou Griffith MD Primary Care Provider Jakub Wilson MD, PHD Unavailable Unava ilJuan Starkey PA-C Unavailable [phone] Padmaja Arenas MD Primary Care Provider [phone] Encounter Details Date Type Department Care Team Description 01/11/2016 Wellness Visit Medical Records [address] [place] [address] Sydnee Miranda DO Social History Tobacco Use [...] on filedocumented in this encounter Care Teams Transit Planner Relationship Specialty Start Date End Date [...] Medicine 10/06/20 08/12/21 Padmaja Arenas MD 175 [place] [address] PCP - General Internal Medicine 08/13/21 Francisco Winter MD Specialist Cardiology 09/29/20 Jakub Akers MD, PHD Specialist Neurosurgery 03/23/21 Juan Hammond PA-C 175 [facility] [address] [place] [address] Specialist Neurosurgery 03/23/21 documented as of this encounter
--- OUTSIDE RECORDS SUMMARY | 2024-05-22 16:35 | XMS_ITS | Encounter Summary ---
Author Organization [facility] Address [address] [place] [address] Care Team Providers Care Skills Trainer Name Role Phone Francisco Winter MD Unavailable [phone] Jakub Akers MD, PHD Unavailable Unava ilable Juan Hammond PA-C Unavailable [phone] Padmaja Arenas MD Primary Care Provider [phone] Reason for Referral * Non HUBER (Routine) - Authorized/Booked Specialty Diagnoses / Procedures Referred By Contshanthi t Referred To Contact Endocrinology Procedures REFERRAL TO ENDOCRINOLOGY Padmaja Arenas MD [address] [place] [phone] Steffany Zuniga PA-C [address] [place] [address] Referral ID Status Reason Start Date Expiration Date V isits Requested Visits Authorized [id number] Authorized/B ooked 10/04/2023 10/02/2024 6 6 Reason for Visit * Reason Onset Date Comments REFERRAL 10/03/2023 Encounter Details Date Type Department Care Team Description 10/03/2023 Telephone Internal Medicine - [address], [address] [place] [address] Padmaja Arenas MD [address] [place] [phone] REFERRAL Social History Tobacco Use Types Packs/Day Years [...] encounter Miscellaneous Notes * Telephone Encounter - Catalina Strauss MA - 10/04/2023 10:34 AM EDT Called pt unable to reach * Telephone Encounter - Padmaja Arenas MD - 10/04/2023 10:21 AM EDT ENDO REF PLACED * Telephone Encounter - Catalina Strauss MA - 10/03/2023 3:[address] Arenas pls advise pt would like a referral to endo * Telephone Encounter - Kanchan Franklin - 10/03/2023 3:11 PM EDT Patient requested a referral for Endocrinology. She stated she had called and asked about this a few weeks ago but it was not documented. 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 She has not been able to lose any weight due to her being hypoglycemic she can't have certain foods. She wants a professional's opinion to help her navigate what she can do having all of these immune diseases to help her lose weight. She has already been to a staff mechanical engineer but it hasn't helped. Callback [phone] documented in this encounter Plan of Treatment Not on file documented as of this encounter Visit Diagnoses Not on filedocumented in this encounter Care Teams Skills Trainer Relationship Specialty Start Date End Date Padmaja Arenas MD [address] [address] PCP - General Internal Medicine 08/13/21 Francisco Winter MD Specialist Cardiology 09/29/20 Jakub Akers MD, PHD Specialist Neurosurgery 03/23/21 Juan Hammond PA-C [address] [address] Specialist Neurosurgery 03/23/21 documented as of this encounter
--- OUTSIDE RECORDS SUMMARY | 2024-05-22 16:35 | XMS_ITS | Encounter Summary ---
Author Organization [facility] Address [address] [place] [address] Care Team Providers Care Production Team Manager Name Role Phone Sydnee Miranda DO Primary Care Pro vider Unavailable Jonas Cano MD Primary Care Provider Unavailab Virginia Ibarra MD Primary Care Provider Unavail able Sydnee Miranda DO Primary Care Pro vider Unavailable Jonas Cano MD Primary Care Provider Unavailab Francisco Mobley MD Unavailable Sekou Griffith MD Primary Care Provider LeighvaJakub Hooks MD, PHD Unavailable Unava ilJuan Starkey PA-C Unavailable [phone] Padmaja Arenas MD Primary Care Provider [phone] Encounter Details Date Type Department Care Team Description 03/09/2017 Rn Or Lpn Report Medical Records [address] [place] [address] Brigida Celeste MD Social History Tobacco Use [...] on filedocumented in this encounter Care Teams Production Team Manager Relationship Specialty Start Date End Date [...] 08/12/21 Padmaja Arenas MD 175 [facility] [address] [place] [address] PCP - General Internal Medicine 08/13/21 Francisco Winter MD Specialist Cardiology 09/29/20 Jakub Akers MD, PHD Specialist Neurosurgery 03/23/21 Juan Hammond PA-C 175 [facility] [address] [place] [address] Specialist Neurosurgery 03/23/21 documented as of this encounter
--- OUTSIDE RECORDS SUMMARY | 2024-05-22 16:35 | XMS_ITS | Encounter Summary ---
Author Organization [facility] Address [address] [place] [address] Care Team Providers Care Forestry Support Specialist Name Role Phone Sydnee Miranda DO Primary Care Pro vider Unavailable Jonas Cano MD Primary Care Provider Unavailab Francisco Mobley MD Unavailable [phone] Sekou Griffith MD Primary Care Provider Jakub Wilson MD, PHD Unavailable Unava Juan Guaman PA-C Unavailable [phone] Padmaja Arenas MD Primary Care Provider [phone] Reason for Visit * Reason Onset Date Comments Provider Call Back 10/04/2018 Encounter Details Date Type Department Care Team Description 10/04/2018 Telephone Adult [address] [address] Sydnee Miranda DO Provider Call Back Social [...] encounter Miscellaneous Notes * Telephone Encounter - Stefanie Ramos - 10/11/2018 1:15 PM EDT An appointment has been scheduled for this patient on October 18, 2018 at 3:15 pm. * Telephone Encounter - Holland Gonzalez PA-C - 10/10/2018 12:40 PM EDT It would be helpful if both parties were more flexible .... thanks * Telephone Encounter - Stefanie Ramos - 10/10/2018 11:33 AM EDT I will monitor for cancellations. At this time, October 25 is still first afternoon available. * Telephone Encounter - Holland Gonzalez PA-C - 10/09/2018 4:29 PM EDT Would be possible to simply call this patient when there is an opening in the afternoon that she can make? I think it would be helpful for everyone involved .... thanks * Telephone Encounter - Karine Gaston MA. - 10/09/2018 2:54 PM EDT Please see message prior to this. You've seen this patient in 2016. Can I put her in your schedule and at what time is best. Thanks * Telephone Encounter - Carrie Luo R.N. - 10/04/2018 3:20 PM EDT Pt is very upset that no one has been able to see the lesions on her legs in the different forms , she has had this off and on for a year with a 3 month cycle increasing in the past 6 months, her legs first feel like something is crawling on her legs . Right now she has crusted lesions and is asking to be seen sooner , the problem is that the pt can only be seen in the afternoon, it appears that derm has tried to work with her but she has not been able to get in due to her schedule I will send to derm for any advice for pt * Telephone Encounter - Darcy Jalloh - 10/04/2018 3:10 PM EDT Caller requesting call back from provider: Is the caller the patient? YES If caller is not the patient, what is the callers name? N/A Callers relationship to patient? N/A If person calling is not the patient themselves, is there a verbal release in FYI or permanent comments for this person: YES Reason for call back: Patient is calling stating that she got referred to dermatology and the soonest appointment was for 10/25/18. Patient is very upset because she wants this resolve. Patient would like a call back from the nurse regarding of what are her options to get a her legs checked and findout what is causing her to get this. Caller offered to speak with the nurse for assistance: YES Response: Patient offered to speak with nurse for assistance and patient agreed. Message forwarded to nurse. documented in this encounter Plan of Treatment Not on file documented as of this encounter Visit Diagnoses Not on filedocumented in this encounter Care Teams Forestry Support Specialist Relationship Specialty Start Date End Date Sydnee Miranda DO PCP - General Internal Medicine 12/25/17 06/16/20 Jonas Cano MD PCP - General Internal Medicine 06/17/20 10/05/20 Sekou Griffith MD PCP - General Internal Medicine 10/06/20 08/12/21 Padmaja Arenas MD 175 [facility] [address] [place] [address] PCP - General Internal Medicine 08/13/21 Francisco Winter MD Specialist Cardiology 09/29/20 Jakub Akers MD, PHD Specialist Neurosurgery 03/23/21 Juan Hammond PA-C 175 [facility] [address] [place] [address] Specialist Neurosurgery 03/23/21 documented as of this encounter
--- OUTSIDE RECORDS SUMMARY | 2024-05-22 16:35 | XMS_ITS | Encounter Summary ---
Author Organization [facility] Address [address] [place] [address] Care Team Providers Care Flower Arranger Name Role Phone Sydnee Miranda DO Primary Care Pro vider Unavailable Jonas Cano MD Primary Care Provider Unavailab Virginia Ibarra MD Primary Care Provider Unavail able Sydnee Miranda DO Primary Care Pro vider Unavailable Jonas Cano MD Primary Care Provider Unavailab Francisco Mobley MD Unavailable [phone] Sekou Griffith MD Primary Care Provider LeighvaJakub Hooks MD, PHD Unavailable Unava ilJuan Starkey PA-C Unavailable [phone] Padmaja Arenas MD Primary Care Provider [phone] Encounter Details Date Type Department Care Team Description 03/01/2017 [facility] Medical Records [address] [place] [address] Abstract, Provider Social History Tobacco Use Types [...] on filedocumented in this encounter Care Teams Flower Arranger Relationship Specialty Start Date End Date Sydnee Miranda DO PCP - General Internal Medicine 11/08/13 07/24/17 oJnas Cano MD PCP - General Internal Medicine 07/25/17 11/14/17 Virginia Gillis MD PCP - General Internal Medicine 11/15/17 12/24/17 Sydnee Miranda DO PCP - General Internal Medicine 12/25/17 06/16/20 Jonas Cano MD PCP - General Internal Medicine 06/17/20 10/05/20 Sekou Griffith MD PCP - General Internal Medicine 10/06/20 08/12/21 Padmaja Arenas MD [address] [place] [address] PCP - General Internal Medicine 08/13/21 Francisco Winter MD Specialist Cardiology 09/29/20 Jakub Akers MD, PHD Specialist Neurosurgery 03/23/21 Juan Hammond PA-C 175 [facility] [address] [place] [address] Specialist Neurosurgery 03/23/21 documented as of this encounter
--- OUTSIDE RECORDS SUMMARY | 2024-05-22 16:35 | XMS_ITS | Encounter Summary ---
Author Organization [facility] Address [address] [place] [address] Care Team Providers Care Esters And Emulsifiers Supervisor Name Role Phone Sydnee Miranda DO Primary Care Pro vider Unavailable Jonas Cano MD Primary Care Provider Unavailab Francisco Mobley MD Unavailable [phone] Sekou Griffith MD Primary Care Provider Jakub Wilson MD, PHD Unavailable Unava ilJuan Starkey PA-C Unavailable Padmaja Arenas MD Primary Care Provider [phone] Encounter Details Date Type Department Care Team Description 09/04/2018 Night Triage Doc Medical Records [address] [place] [address] Abstract, Provider Social History Tobacco Use Types [...] on filedocumented in this encounter Care Teams Esters And Emulsifiers Supervisor Relationship Specialty Start Date End Date Sydnee Miranda DO PCP - General Internal Medicine 12/25/17 06/16/20 Jonas Cano MD PCP - General Internal Medicine 06/17/20 10/05/20 Sekou Griffith MD PCP - General Internal Medicine 10/06/20 08/12/21 Padmaja Arenas MD [address] [place] [address] PCP - General Internal Medicine 08/13/21 Francisco Winter MD Specialist Cardiology 09/29/20 Jakub Akers MD, PHD Specialist Neurosurgery 03/23/21 Juan Hammond PA-C [address] [place] [address] Specialist Neurosurgery 03/23/21 documented as of this encounter
--- OUTSIDE RECORDS SUMMARY | 2024-05-22 16:35 | XMS_ITS | Encounter Summary ---
Author Organization [facility] Address [address] [place] [address] Care Team Providers Care Real Estate Transaction Coordinator Name Role Phone Jonas Cano MD Primary Care Provider Unavailab Francisco Mobley MD Unavailable [phone] Sekou Griffith MD Primary Care Provider Unavai Jakub Hahn MD, PHD Unavailable Unava ilable Juan Hammond PA-C Unavailable [phone] Padmaja Arenas MD Primary Care Provider [phone] Encounter Details Date Type Department Care Team Description 09/16/2020 SCAN [facility] 175 [facility] [address] [place] [id number] Jorje Varela MD 175 [facility] [address] [place] [address] Social History Tobacco Use Types Packs/Day Years [...] on filedocumented in this encounter Care Teams Real Estate Transaction Coordinator Relationship Specialty Start Date End Date Jonas Cano MD PCP - General Internal Medicine 06/17/20 10/05/20 Sekou Griffith MD PCP - General Internal Medicine 10/06/20 08/12/21 Padmaja Arenas MD 175 [place] [address] PCP - General Internal Medicine 08/13/21 Francisco Winter MD Specialist Cardiology 09/29/20 Jakub Akers MD, PHD Specialist Neurosurgery 03/23/21 Juan Hammond PA-C 175 [facility] [address] [place] [address] Specialist Neurosurgery 03/23/21 documented as of this encounter
--- OUTSIDE RECORDS SUMMARY | 2024-05-22 16:35 | XMS_ITS | Encounter Summary ---
Author Organization [facility] Address [address] [place] [address] Care Team Providers Care Inspector Brake Lining Name Role Phone Sydnee Miranda DO Primary Care Pro vider Unavailable Jonas Cano MD Primary Care Provider Unavailab Francisco Mobley MD Unavailable [phone] Sekou Griffith MD Primary Care Provider Jakub Wilson MD, PHD Unavailable Unava ilJuan Starkey PA-C Unavailable [phone] Padmaja Arenas MD Primary Care Provider [phone] Encounter Details Date Type Department Care Team Description 07/18/2018 Administrative Services Specialist Report Medical Records [address] [place] [address] Juliet Porter MD Social History Tobacco Use [...] filedocumented in this encounter Care Teams Inspector Brake Lining Relationship Specialty Start Date End Date Sydnee Miranda DO PCP - General Internal Medicine 12/25/17 06/16/20 Jonas Cano MD PCP - General Internal Medicine 06/17/20 10/05/20 Sekou Griffith MD PCP - General Internal Medicine 10/06/20 08/12/21 Padmaja Arenas MD [address] [place] [address] PCP - General Internal Medicine 08/13/21 Francisco Winter MD Specialist Cardiology 09/29/20 Jakub Akers MD, PHD Specialist Neurosurgery 03/23/21 Juan Hammond PA-C [address] [place] [address] Specialist Neurosurgery 03/23/21 documented as of this encounter
--- OUTSIDE RECORDS SUMMARY | 2024-05-22 16:35 | XMS_ITS | Encounter Summary ---
Author Organization [facility] Address [address] [place] [address] Care Team Providers Care Bleaching Supervisor Name Role Phone Sydnee Miranda DO Primary Care Pro vider Unavailable Jonas Cano MD Primary Care Provider Unavailab Francisco Mobley MD Unavailable [phone] Sekou Griffith MD Primary Care Provider Jakub Wilson MD, PHD Unavailable Unava ilJuan Starkey PA-C Unavailable [phone] Padmaja Arenas MD Primary Care Provider [phone] Encounter Details Date Type Department Care Team Description 08/29/2018 Blankmaker Report Medical Records [address] [place] [address] Kasandra Elizabeth, SAUD Social History Tobacco Use [...] on filedocumented in this encounter Care Teams Bleaching Supervisor Relationship Specialty Start Date End Date Sydnee Miranda DO PCP - General Internal Medicine 12/25/17 06/16/20 Jonas Cano MD PCP - General Internal Medicine 06/17/20 10/05/20 Sekou Griffith MD PCP - General Internal Medicine 10/06/20 08/12/21 Padmaja Arenas MD [address] [address] PCP - General Internal Medicine 08/13/21 Francisco Winter MD Specialist Cardiology 09/29/20 Jakub Akers MD, PHD Specialist Neurosurgery 03/23/21 Juan Hammond PA-C [address] [place] [address] Specialist Neurosurgery 03/23/21 documented as of this encounter
--- OUTSIDE RECORDS SUMMARY | 2024-05-22 16:35 | XMS_ITS | Encounter Summary ---
Author Organization [facility] Address [address] [place] [address] Care Team Providers Care Private Eye Name Role Phone Sydnee Miranda DO Primary Care Pro vider Unavailable Jonas Cano MD Primary Care Provider Unavailab Virginia Ibarra MD Primary Care Provider Unavail able Sydnee Miranda DO Primary Care Pro vider Unavailable Jonas Cano MD Primary Care Provider Unavailab Francisco Mobley MD Unavailable Sekou Griffith MD Primary Care Provider LeighvaJakub Hooks MD, PHD Unavailable Unava ilable Juan Hammond PA-C Unavailable [phone] Padmaja Arenas MD Primary Care Provider [phone] Encounter Details Date Type Department Care Team Description 09/04/2015 Transfer Records Medical Records [address] [place] [address] Abstract, Provider Social History Tobacco Use Types [...] on filedocumented in this encounter Care Teams Private Eye Relationship Specialty Start Date End Date Sydnee [...] PCP - General Internal Medicine 10/06/20 08/12/21 Padamja Arenas MD 175 [place] [address] PCP - General Internal Medicine 08/13/21 Francisco Winter MD Specialist Cardiology 09/29/20 Jakub Akers MD, PHD Specialist Neurosurgery 03/23/21 Juan Hammond PA-C [address] [address] Specialist Neurosurgery 03/23/21 documented as of this encounter
--- OUTSIDE RECORDS SUMMARY | 2024-05-22 16:35 | XMS_ITS | Encounter Summary ---
Author Organization [facility] Address [address] [place] [address] Care Team Providers Care Gis Coordinator Name Role Phone Virginia Gillis MD Primary Care Provider Unavail able Sydnee Miranda DO Primary Care Pro vider Unavailable Jonas Cano MD Primary Care Provider Unavailab Francisco Mobley MD Unavailable [phone] Sekou Griffith MD Primary Care Provider Jakub Wilson MD, PHD Unavailable Unava ilJuan Starkey PA-C Unavailable [phone] Padmaja Arenas MD Primary Care Provider [phone] Encounter Details Date Type Department Care Team Description 11/28/2017 Orders Only Adult Medicine [address] [address] Sydnee Miranda DO Pure hypercholesterolemia (Primary Dx) [...] 1.005 - 1.030 11/29/2017 3:25 PM EDT [facility] PH, URINE 6.0 5 - 8 11/29/2017 3:24 PM EDT [facility] PROTEIN, URINE NEGATIVE <=TRACE mg/dL 11/29/2017 3:24 PM EDT [facility] GLUCOSE, URINE (UA) NEGATIVE NEGATIVE mg/dL 11/29/2017 3:24 PM EDT [facility] KETONE, URINE NEGATIVE NEGATIVE mg/dL 11/29/2017 3:24 PM EDT [facility] BLOOD, URINE NEGATIVE NEGATIVE 11/29/2017 3:24 PM EDT [facility] NITRITE,URINE NEGATIVE NEGATIVE 11/29/2017 3:24 PM EDT [facility] LEUKOCYTE ESTERASE, URINE TRACE(A) NEGATIVE 11/29/2017 3:24 PM EDT [facility] 11/29/2017 3:09 PM EDT 11/29/2017 3:09 PM EDT Sydnee Dang DO LAB Performing Organization Address City/State/[facility] Co de Phone Number [facility] [address] [facility] documented in this encounter Visit Diagnoses Diagnosis Pure hypercholesterolemia- Primary documented in this encounter Care Teams Gis Coordinator Relationship Specialty Start Date End Date Virginia Gillis MD PCP - General Internal Medicine 11/15/17 12/24/17 Sydnee Miranda DO PCP - General Internal Medicine 12/25/17 06/16/20 Jonas Cano MD PCP - General Internal Medicine 06/17/20 10/05/20 Sekou Griffith MD PCP - General Internal Medicine 10/06/20 08/12/21 Padmaja Arenas MD 175 [facility] [address] [place] [address] PCP - General Internal Medicine 08/13/21 Francisco Winter MD Specialist Cardiology 09/29/20 Jakub Akers MD, PHD Specialist Neurosurgery 03/23/21 Juan Hammond PA-C 175 [facility] [address] [place] [address] Specialist Neurosurgery 03/23/21 documented as of this encounter
--- OUTSIDE RECORDS SUMMARY | 2024-05-22 16:35 | XMS_ITS | Encounter Summary ---
Author Organization [facility] Address [address] [place] [address] Care Team Providers Care Epic [facility] Name Role Phone Francisco Winter MD Unavailable [phone] Jakub Akers MD, PHD Unavailable Unava ilable Juan Hmamond PA-C Unavailable [phone] Padmaja Arenas MD Primary Care Provider [phone] Reason for Visit * Reason Onset Date Comments Error 04/12/2023 radiology 04/12/2023 Ultrasound of br east and bone density Encounter Details Date Type Department Care Team Description 04/12/2023 Telephone Internal Medicine - [address], [address] [place] [address] Padmaja Arenas MD [address] [place] [phone] Error; radiology (/Ultrasound of breast and [...] of breast and bone density sent to [facility] will call for apt and fax Pended to pcp please review and advise Appt set up for April 25 @1:30pm [facility] for diagnostic mammo informed bearing grinder to at ultrasound to follow Bone Density [...] facility documented in this encounter Care Teams Epic [facility] Relationship Specialty Start Date End Date Padmaja Arenas MD 175 [facility] [address] [place] [address] PCP - General Internal Medicine 08/13/21 Francisco Winter MD Specialist Cardiology 09/29/20 Jakub Akers MD, PHD Specialist Neurosurgery 03/23/21 Juan Hammond PA-C 175 [facility] [address] [place] [address] Specialist Neurosurgery 03/23/21 documented as of this encounter
--- OUTSIDE RECORDS SUMMARY | 2024-05-22 16:35 | XMS_ITS | Encounter Summary ---
Author Organization [facility] Address [address] [place] [address] Care Team Providers Care Machine Shop Repair Technician Name Role Phone Sydnee Miranda DO Primary Care Pro vider Unavailable Jonas Cano MD Primary Care Provider Unavailab Francisco Mobley MD Unavailable [phone] Sekou Griffith MD Primary Care Provider Jakub Wilson MD, PHD Unavailable Unava ilJuan Starkey PA-C Unavailable [phone] Padmaja Arenas MD Primary Care Provider [phone] Encounter Details Date Type Department Care Team Description 03/20/2019 Release of Information Medical Records [address] [place] [address] Abstract, Provider Social History Tobacco Use Types [...] on filedocumented in this encounter Care Teams Machine Shop Repair Technician Relationship Specialty Start Date End Date Sydnee Miranda DO PCP - General Internal Medicine 12/25/17 06/16/20 Jonas Cano MD PCP - General Internal Medicine 06/17/20 10/05/20 Sekou Griffith MD PCP - General Internal Medicine 10/06/20 08/12/21 Padmaja Arenas MD [address] [place] [address] PCP - General Internal Medicine 08/13/21 Francisco Winter MD Specialist Cardiology 09/29/20 Jakub Akers MD, PHD Specialist Neurosurgery 03/23/21 Juan Hammond PA-C [address] [place] [address] Specialist Neurosurgery 03/23/21 documented as of this encounter
--- OUTSIDE RECORDS SUMMARY | 2024-05-22 16:35 | XMS_ITS | Encounter Summary ---
Author Organization [facility] Address [address] [place] [address] Care Team Providers Care Etcher Machine Name Role Phone Sydnee Miranda DO Primary Care Pro vider Unavailable Jonas Cano MD Primary Care Provider Unavailab Virginia Ibarra MD Primary Care Provider Unavail able Sydnee Miranda DO Primary Care Pro vider Unavailable Jonas Cano MD Primary Care Provider Unavailab Francisco Mobley MD Unavailable Sekou Griffith MD Primary Care Provider LeighvaJakub Hooks MD, PHD Unavailable Unava ilJuan Starkey PA-C Unavailable [phone] Padmaja Arenas MD Primary Care Provider [phone] Encounter Details Date Type Department Care Team Description 05/19/2017 Live Hanger Report Medical Records [address] [place] [address] Kaden Bertrand MD Social History Tobacco Use [...] on filedocumented in this encounter Care Teams Etcher Machine Relationship Specialty Start Date End Date Sydnee [...] Medicine 10/06/20 08/12/21 Padmaja Arenas MD 175 [place] [address] PCP - General Internal Medicine 08/13/21 Francisco Winter MD Specialist Cardiology 09/29/20 Jakub Akers MD, PHD Specialist Neurosurgery 03/23/21 Juan Hammond PA-C 175 [facility] [address] [place] [address] Specialist Neurosurgery 03/23/21 documented as of this encounter
--- OUTSIDE RECORDS SUMMARY | 2024-05-22 16:35 | XMS_ITS | Encounter Summary ---
Author Organization [facility] Address [address] [place] [address] Care Team Providers Care Bobtailer Name Role Phone Sydnee Miranda DO Primary Care Pro vider Unavailable Jonas Cano MD Primary Care Provider Unavailab Francisco Mobley MD Unavailable [phone] Sekou Griffith MD Primary Care Provider Jakub Wilson MD, PHD Unavailable Unava ilJuan Starkey PA-C Unavailable [phone] Padmaja Arenas MD Primary Care Provider [phone] Encounter Details Date Type Department Care Team Description 03/23/2018 Casino Cashier Report Medical Records [address] [place] [address] Juan Baker MD Social History Tobacco Use [...] on filedocumented in this encounter Care Teams Bobtailer Relationship Specialty Start Date End Date Sydnee Miranda DO PCP - General Internal Medicine 12/25/17 06/16/20 Jonas Cano MD PCP - General Internal Medicine 06/17/20 10/05/20 Sekou Griffith MD PCP - General Internal Medicine 10/06/20 08/12/21 Padmaja Arenas MD [address] [place] [address] PCP - General Internal Medicine 08/13/21 Francisco Winter MD Specialist Cardiology 09/29/20 Jakub Akers MD, PHD Specialist Neurosurgery 03/23/21 Juan Hammond PA-C [address] [place] [address] Specialist Neurosurgery 03/23/21 documented as of this encounter
--- OUTSIDE RECORDS SUMMARY | 2024-05-22 16:35 | XMS_ITS | Encounter Summary ---
Author Organization [facility] Address [address] [place] [address] Care Team Providers Care Nitrogen Operator Name Role Phone Jonas Cano MD Primary Care Provider Unavailab Francisco Mobley MD Unavailable [phone] Sekou Griffith MD Primary Care Provider UnavaJakub Hooks MD, PHD Unavailable Unava ilable Juan Hammond PA-C Unavailable [phone] Padmaja Arenas MD Primary Care Provider [phone] Encounter Details Date Type Department Care Team Description 08/12/2020 Metrology Manager Report Medical Records [address] [place] [address] [facility] [address] [place] [address] Social History Tobacco Use Types Packs/Day Years [...] on filedocumented in this encounter Care Teams Nitrogen Operator Relationship Specialty Start Date End Date Jonas Cano MD PCP - General Internal Medicine 06/17/20 10/05/20 Sekou Griffith MD PCP - General Internal Medicine 10/06/20 08/12/21 Padmaja Arenas MD [address] [address] PCP - General Internal Medicine 08/13/21 Francisco Winter MD Specialist Cardiology 09/29/20 Jakub Akers MD, PHD Specialist Neurosurgery 03/23/21 Juan Hammond PA-C [address] [address] Specialist Neurosurgery 03/23/21 documented as of this encounter
--- OUTSIDE RECORDS SUMMARY | 2024-05-22 16:35 | XMS_ITS | Encounter Summary ---
Author Organization [facility] Address [address] [place] [address] Care Team Providers Care Superintendent Oil Well Services Name Role Phone Jonas Cano MD Primary Care Provider Unavailab Francisco Mobley MD Unavailable [phone] Sekou Griffith MD Primary Care Provider Unavai Jakub Hahn MD, PHD Unavailable Unava ilable Juan Hammond PA-C Unavailable [phone] Padmaja Arenas MD Primary Care Provider [phone] Encounter Details Date Type Department Care Team Description 09/10/2020 SCAN [facility] 175 [facility] [address] [place] [phone] Jorje Varela MD 175 [facility] [address] [place] [address] Social History Tobacco Use Types Packs/Day Years [...] on filedocumented in this encounter Care Teams Superintendent Oil Well Services Relationship Specialty Start Date End Date Jonas Cano MD PCP - General Internal Medicine 06/17/20 10/05/20 Sekou Griffith MD PCP - General Internal Medicine 10/06/20 08/12/21 Padmaja Arenas MD 175 [place] [address] PCP - General Internal Medicine 08/13/21 Francisco Winter MD Specialist Cardiology 09/29/20 Jakub Akers MD, PHD Specialist Neurosurgery 03/23/21 Juan Hammond PA-C 175 [facility] [address] [place] [address] Specialist Neurosurgery 03/23/21 documented as of this encounter
--- OUTSIDE RECORDS SUMMARY | 2024-05-22 16:35 | XMS_ITS | Encounter Summary ---
Author Organization [facility] Address [address] [place] [address] Care Team Providers Care Chargeback Specialist Name Role Phone Francisco Winter MD Unavailable [phone] Sekou Griffith MD Primary Care Provider Jakub Wilson MD, PHD Unavailable Unava ilable Juan Hammond PA-C Unavailable [phone] Padmaja Arenas MD Primary Care Provider [phone] Reason for Visit * Reason Onset Date Comments refill request 2021 Encounter Details Date Type Department Care Team Description 2021 Refill Adult Medicine [address] [address] Sekou Griffith MD refill request Social History [...] / [place] / Product Type: MEDICARE [id number] documented in this encounter Plan of Treatment Not on file documented as of this encounter Visit Diagnoses Not on filedocumented in this encounter Care Teams Chargeback Specialist Relationship Specialty Start Date End Date Sekou Griffith MD PCP - General Internal Medicine 10/06/20 08/12/21 Padmaja Arenas MD [address] [place], [place] [id number] PCP - General Internal Medicine 08/13/21 Francisco Winter MD Specialist Cardiology 09/29/20 Jakub Akers MD, PHD Specialist Neurosurgery 03/23/21 Juan Hammond PA-C [address] [address] Specialist Neurosurgery 03/23/21 documented as of this encounter
--- OUTSIDE RECORDS SUMMARY | 2024-05-22 16:35 | XMS_ITS | Encounter Summary ---
Author Organization [facility] Address [address] [place] [address] Care Team Providers Care Machine Overhauler Name Role Phone Sydnee Miranda DO Primary Care Pro vider Unavailable Jonas Cano MD Primary Care Provider Unavailab Francisco Mobley MD Unavailable Sekou Griffith MD Primary Care Provider UnavaJakub Hooks MD, PHD Unavailable Unava ilable Juan Hammond PA-C Unavailable [phone] Padmaja Arenas MD Primary Care Provider [phone] Reason for Visit * Reason Onset Date Comments TEST RESULTS 08/28/2018 Encounter Details Date Type Department Care Team Description 08/28/2018 Telephone OBGYN - [place] [address] [place] [address] Fannie Hernandez MD TEST RESULTS Social History [...] filedocumented in this encounter Care Teams Machine Overhauler Relationship Specialty Start Date End Date Sydnee Miranda DO PCP - General Internal Medicine 12/25/17 06/16/20 Jonas Cano MD PCP - General Internal Medicine 06/17/20 10/05/20 Sekou Griffith MD PCP - General Internal Medicine 10/06/20 08/12/21 Padmaja Arenas MD [address] [place] [address] PCP - General Internal Medicine 08/13/21 Francisco Winter MD Specialist Cardiology 09/29/20 Jakub Akers MD, PHD Specialist Neurosurgery 03/23/21 Juan Hammond PA-C 175 [facility] [address] [place] [address] Specialist Neurosurgery 03/23/21 documented as of this encounter
--- OUTSIDE RECORDS SUMMARY | 2024-05-22 16:35 | XMS_ITS | Encounter Summary ---
Author Organization [facility] Address [address] [place] [address] Care Team Providers Care Material Checker Name Role Phone Francisco Winter MD Unavailable [phone] Jakub Akers MD, PHD Unavailable Unava ilable Juan Hammond PA-C Unavailable [phone] Padmaja Arenas MD Primary Care Provider [phone] Encounter Details Date Type Department Care Team Description 02/21/2023 Release of Information [facility] [address] [id number] Jamie Romero DPM [address] [address] Social History Tobacco Use Types Packs/Day Years [...] on filedocumented in this encounter Care Teams Material Checker Relationship Specialty Start Date End Date Padmaja Arenas MD [address] [address] PCP - General Internal Medicine 08/13/21 Francisco Winter MD Specialist Cardiology 09/29/20 Jakub Akers MD, PHD Specialist Neurosurgery 03/23/21 Juan Hammond PA-C [address] [place] [address] Specialist Neurosurgery 03/23/21 documented as of this encounter
--- OUTSIDE RECORDS SUMMARY | 2024-05-22 16:35 | XMS_ITS | Encounter Summary ---
Author Organization [facility] Address [address] [place] [address] Care Team Providers Care Fur Trimmer Name Role Phone Jonas Cano MD Primary Care Provider Unavailab Francisco Mobley MD Unavailable [phone] Sekou Griffith MD Primary Care Provider UnavaJakub Hooks MD, PHD Unavailable Unava ilable Juan Hammond PA-C Unavailable [phone] Padmaja Arenas MD Primary Care Provider [phone] Encounter Details Date Type Department Care Team Description 07/23/2020 Prototype Machinist Report Medical Records [address] [place] [address] Mykel Marcum MD Social History Tobacco Use [...] filedocumented in this encounter Care Teams Fur Trimmer Relationship Specialty Start Date End Date Jonas Cano MD PCP - General Internal Medicine 06/17/20 10/05/20 Sekou Griffith MD PCP - General Internal Medicine 10/06/20 08/12/21 Padmaja Arenas MD [address] [address] PCP - General Internal Medicine 08/13/21 Francisco Winter MD Specialist Cardiology 09/29/20 Jakub Akers MD, PHD Specialist Neurosurgery 03/23/21 Juan Hammond PA-C [address] [address] Specialist Neurosurgery 03/23/21 documented as of this encounter
--- OUTSIDE RECORDS SUMMARY | 2024-05-22 16:35 | XMS_ITS | Encounter Summary ---
Author Organization [facility] Address [address] [place] [address] Care Team Providers Care Mail Handlers Supervisor Name Role Phone Sydnee Miranda DO Primary Care Pro vider Unavailable Jonas Cano MD Primary Care Provider Unavailab Francisco Mobley MD Unavailable [phone] Sekou Griffith MD Primary Care Provider Jakub Wilson MD, PHD Unavailable Unava ilJuan Starkey PA-C Unavailable [phone] Padmaja Arenas MD Primary Care Provider [phone] Encounter Details Date Type Department Care Team Description 01/04/2018 Release of Information Medical Records [address] [place] [address] Abstract, Provider Social History Tobacco Use Types [...] on filedocumented in this encounter Care Teams Mail Handlers Supervisor Relationship Specialty Start Date End Date Sydnee Miranda DO PCP - General Internal Medicine 12/25/17 06/16/20 Jonas Cano MD PCP - General Internal Medicine 06/17/20 10/05/20 Sekou Griffith MD PCP - General Internal Medicine 10/06/20 08/12/21 Padmaja Arenas MD [address] [place] [address] PCP - General Internal Medicine 08/13/21 Francisco Winter MD Specialist Cardiology 09/29/20 Jakub Akers MD, PHD Specialist Neurosurgery 03/23/21 Juan Hammond PA-C [address] [place] [address] Specialist Neurosurgery 03/23/21 documented as of this encounter
--- OUTSIDE RECORDS SUMMARY | 2024-05-22 16:35 | XMS_ITS | Encounter Summary ---
Author Organization [facility] Address [address] [place] [address] Care Team Providers Care Manager Administration Name Role Phone Francisco Winter MD Unavailable [phone] Sekou Griffith MD Primary Care Provider Jakub Wilson MD, PHD Unavailable Unava ilable Juan Hammond PA-C Unavailable [phone] Padmaja Arenas MD Primary Care Provider [phone] Reason for Visit * Reason Onset Date Comments Faxed Order 12/23/2020 Encounter Details Date Type Department Care Team Description 12/23/2020 Telephone Adult [address] [address] Sekou Griffith MD Faxed Order Social History Tobacco Use Types Packs/Day Years [...] encounter Miscellaneous Notes * Telephone Encounter - Jameson Bazzi - 12/23/2020 3:48 PM EST Faxed order received from outpatient rehab services. Order placed in Dr. Crescencio Griffith's bin. Please review, sign, date, and fax back to [phone]. documented in this encounter Plan of Treatment Not on file documented as of this encounter Visit Diagnoses Not on filedocumented in this encounter Care Teams Manager Administration Relationship Specialty Start Date End Date Sekou Griffith MD PCP - General Internal Medicine 10/06/20 08/12/21 Padmaja Arenas MD [address] [address] PCP - General Internal Medicine 08/13/21 Francisco Winter MD Specialist Cardiology 09/29/20 Jakub Akers MD, PHD Specialist Neurosurgery 03/23/21 Juan Hammond PA-C 175 [facility] [address] [place] [address] Specialist Neurosurgery 03/23/21 documented as of this encounter
--- OUTSIDE RECORDS SUMMARY | 2024-05-22 16:35 | XMS_ITS | Encounter Summary ---
Author Organization [facility] Address [address] [place] [address] Care Team Providers Care Entry Level Mechanical Engineer Name Role Phone Sydnee Miranda DO Primary Care Pro vider Unavailable Jonas Cano MD Primary Care Provider Unavailab Francisco Mobley MD Unavailable [phone] Sekou Griffith MD Primary Care Provider Jakub Wilson MD, PHD Unavailable Unava ilJuan Starkey PA-C Unavailable [phone] Padmaja Arenas MD Primary Care Provider [phone] Reason for Visit * Reason Onset Date Comments Blood Pressure Elevated 02/26/2019 Encounter Details Date Type Department Care Team Description 02/26/2019 Telephone Adult [address] [address] Sydnee Miranda DO Blood Pressure Elevated Social History Tobacco Use Types Packs/Day Years [...] Telephone Encounter - Carrie Luo R.N. - 02/26/2019 10:11 AM EST Pt has no hx of HTN , no meds. 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 She is not having any symtoms, she would like to discuss this with dr Sydnee Smith Will see dr Sydnee desai at 3:00 * Telephone Encounter - Charley Sandy - 02/26/2019 9:48 AM EST Symptoms patient is having: the pt needs to discuss her blood pressure readings for the last 5months with the nurse If pain or injury related was it due to an accident at work or from a motor vehicle accident? NO If yes, gather 3rd republican insurance information Date of accident/Injury: How long has patient had these symptoms?: PCP: Sydnee Smith [place] / [place] / Product Type: MEDICARE [id number] documented in this encounter Plan of Treatment Not on file documented as of this encounter Visit Diagnoses Not on filedocumented in this encounter Care Teams Entry Level Mechanical Engineer Relationship Specialty Start Date End Date Sydnee Miranda DO PCP - General Internal Medicine 12/25/17 06/16/20 Jonas Cano MD PCP - General Internal Medicine 06/17/20 10/05/20 Sekou Griffith MD PCP - General Internal Medicine 10/06/20 08/12/21 Padmaja Arenas MD 175 [facility] [address] [place] [address] PCP - General Internal Medicine 08/13/21 Francisco Winter MD Specialist Cardiology 09/29/20 Jakub Akers MD, PHD Specialist Neurosurgery 03/23/21 Juan Hammond PA-C 175 [facility] [address] [place] [address] Specialist Neurosurgery 03/23/21 documented as of this encounter
--- OUTSIDE RECORDS SUMMARY | 2024-05-22 16:35 | XMS_ITS | Encounter Summary ---
Author Organization [facility] Address [address] [place] [address] Care Team Providers Care Tank Inspector Name Role Phone Sydnee Miranda DO Primary Care Pro vider Unavailable Jonas Cano MD Primary Care Provider Unavailab Francisco Mobley MD Unavailable [phone] Sekou Griffith MD Primary Care Provider Jakub Wilson MD, PHD Unavailable Unava ilJuan Starkey PA-C Unavailable [phone] Padmaja Arenas MD Primary Care Provider [phone] Encounter Details Date Type Department Care Team Description 04/10/2019 Orders Only Adult Medicine [address] [address] Sydnee Miranda DO Dyslipidemia (Primary Dx) Social History Tobacco Use Types [...] documented as of this encounter Results * TRANSAMINASE (SGPT)(ALT) UV- (05/08/2019 10:28 AM EDT) SGPT 29 10 - 60 U/L 05/08/2019 1:16 PM EDT [facility] 05/08/2019 10:2 8 AM EDT 05/08/2019 10:30 AM EDT Sydnee Elie Dang LAB Performing Organization Address [facility]/ZIP Co de Phone Number [facility] * TRANSAMINASE (SGOT)(AST) UV- (05/08/2019 10:28 AM EDT) SGOT 22 10 - 42 U/L 05/08/2019 1:16 PM EDT [facility] 05/08/2019 10:2 8 AM EDT 05/08/2019 10:30 AM EDT Sydnee Elie kaylyn LAB Performing Organization Address [facility] Co de Phone Number [facility] * (ABNORMAL) LIPID PROFILE (05/08/2019 10:28 AM EDT) Cholesterol 189 0 - 200 mg/dL 05/08/2019 1:16 PM EDT [facility] TRIGLYCERIDES 71 0 - 150 mg/dL 05/08/2019 1:16 PM EDT [facility] HDL CHOLESTEROL 69 >40 mg/dL 0 1:16 PM EDT [facility] LDL CALCULATED 106(H) 0 - 100 mg/dL 05/08/2019 1:16 PM EDT [facility] TC-HDLC RATIO 2.7 0 - 4.4 mg/dL 05/08/2019 1:16 PM EDT [facility] 05/08/2019 10:2 8 AM EDT 05/08/2019 10:30 AM EDT Sydnee Dang LAB Performing Organization Address City/[facility]/ZIP Co de Phone Number [facility] documented in this encounter Visit Diagnoses Diagnosis Dyslipidemia- Primary Other and unspecified hyperlipidemia documented in this encounter Care Teams Tank Inspector Relationship Specialty Start Date End Date Sydnee Miranda DO PCP - General Internal Medicine 12/25/17 06/16/20 Jonas Cano MD PCP - General Internal Medicine 06/17/20 10/05/20 Sekou Griffith MD PCP - General Internal Medicine 10/06/20 08/12/21 Padmaja Arenas MD [address] [place] [address] PCP - General Internal Medicine 08/13/21 Francisco Winter MD Specialist Cardiology 09/29/20 Jakub Akers MD, PHD Specialist Neurosurgery 03/23/21 Juan Hammond PA-C [address] [place] [address] Specialist Neurosurgery 03/23/21 documented as of this encounter
--- OUTSIDE RECORDS SUMMARY | 2024-05-22 16:35 | XMS_ITS | Encounter Summary ---
Author Organization [facility] Address [address] [place] [address] Care Team Providers Care Termite Exterminator Name Role Phone Sydnee Miranda DO Primary Care Pro vider Unavailable Jonas Cano MD Primary Care Provider Unavailab Virginia Ibarra MD Primary Care Provider Unavail able Sydnee Miranda DO Primary Care Pro vider Unavailable Jonas Cano MD Primary Care Provider Unavailab Francisco Mobley MD Unavailable [phone] Sekou Griffith MD Primary Care Provider LeighvaJakub Hooks MD, PHD Unavailable Unava ilJuan Starkey PA-C Unavailable [phone] Padmaja Arenas MD Primary Care Provider [phone] Reason for Visit * Reason Onset Date Comments urination problems 09/11/2015 Encounter Details Date Type Department Care Team Description 09/11/2015 Telephone Adult [address] [address] Sydnee Miranda DO urination problems Social History Tobacco Use Types Packs/Day Years Used Date Smoking Tobacco: Never Alcohol Use Standard Drinks/Week Comments No 0 (1 standard drink = 0.6 oz pur e alcohol) Sex Assigned at Date Recorded Not on file Job Start Date Occupation Industry Not on file Not on file Not on file documented as of this encounter Miscellaneous Notes * Telephone Encounter - Sydnee Dang DO - 09/11/2015 4:43 PM EDT Thank you * Telephone Encounter - Leidy Fowler - 09/11/2015 4:01 PM EDT Pt calling to make Sydnee Smith aware that for two years she has had no sensation tourinate, abd pressure (pelvic pain) and sweating. Denies any hematuria. Pt does not cath herself. Pt stays well hydrated and urinates approx 3-4 times a day. States worse with humidity and dampness. Also has nausea and sweating before eating. Pt has been checking her blood sugar (has monitor but no test strips) with an average reading of 100. Pt states she has been on a diet since she was [age] years old. Pt is A&O x 3, speech is clear and appropriate, able to speak in full sentences, denies CP/SOB,dizziness/weakness, no changes to CMS, no swelling, no N/V/D/Fever (temperature not taken), abdomennon tender, able to eat/drink, able to void, pt reports being able to ambulate with steady gate. Advised home care following the Urination Difficult protocol. RN reinforced telephone consultation and advice. Reviewed with patient the signs and symptoms to watch for that would require immediate attention. If symptoms change, worsen or increase in intensity, to call office back immediately or goto the ER/call 911. Pt verbalized understanding and agreed with plan. Telephone Triage Protocols for Nurses: [facility]quelyn Newsome: [facility] pg. [phone]. Will forward to Sydnee Smith for review and advice. * Telephone Encounter - Jeannie Ruggiero - 09/11/2015 2:42 PM EDT Symptoms patient is presenting: lack of sensation when going to urinate, patient gets pressure on her abdomin and sweating, patient is concerned and is wondering if this is related to her herniated disks or her kidneys If pain or injury related was it due to an accident at work or from a motor vehicle accident? NO If yes, gather 3rd green party insurance information Date of accident/Injury: How long has patient had these symptoms?: ongoing depending on weather and been noticing it more inthe past weeks PCP: Sydnee Smith Pay[place]: [place] / [place] / Product Type: MEDICARE [id number] documented in this encounter Plan of Treatment Not on file documented as of this encounter Visit Diagnoses Not on filedocumented in this encounter Care Teams Termite Exterminator Relationship Specialty Start Date End Date Sydnee [...] Medicine 10/06/20 08/12/21 Padmaja Arenas MD [address] [address] PCP - General Internal Medicine 08/13/21 Francisco Winter MD Specialist Cardiology 09/29/20 Jakub Akers MD, PHD Specialist Neurosurgery 03/23/21 Juan Hammond PA-C [address] [address] Specialist Neurosurgery 03/23/21 documented as of this encounter
--- OUTSIDE RECORDS SUMMARY | 2024-05-22 16:35 | XMS_ITS | Encounter Summary ---
Author Organization [facility] Address [address] [place] [address] Care Team Providers Care Maintenance And Engineering Manager Name Role Phone Sydnee Miranda DO Primary Care Pro vider Unavailable Jonas Cano MD Primary Care Provider Unavailab Virginia Ibarra MD Primary Care Provider Unavail able Sydnee Miranda DO Primary Care Pro vider Unavailable Jonas Cano MD Primary Care Provider Unavailab Francisco Mobley MD Unavailable Sekou Griffith MD Primary Care Provider Jakub Wilson MD, PHD Unavailable Unava ilJuan Starkey PA-C Unavailable [phone] Padmaja Arenas MD Primary Care Provider [phone] Encounter Details Date Type Department Care Team Description 12/31/2014 Wellness Visit Medical Records [address] [place] [address] Sydnee Miranda DO Social History Tobacco Use [...] filedocumented in this encounter Care Teams Maintenance And Engineering Manager Relationship Specialty Start Date End Date Sydnee Miranda DO PCP - General Internal Medicine 11/08/13 07/24/17 Jonsa Cano MD PCP - General Internal Medicine 07/25/17 11/14/17 Virginia Gillis MD PCP - General Internal Medicine 11/15/17 12/24/17 Sydnee Miranda DO PCP - General Internal Medicine 12/25/17 06/16/20 Jonas Cano MD PCP - General Internal Medicine 06/17/20 10/05/20 Sekou Griffith MD PCP - General Internal Medicine 10/06/20 08/12/21 Padmaja Arenas MD 175 [place] [address] PCP - General Internal Medicine 08/13/21 Francisco Winter MD Specialist Cardiology 09/29/20 Jakub Akers MD, PHD Specialist Neurosurgery 03/23/21 Juan Hammond PA-C 175 [facility] [address] [place] [address] Specialist Neurosurgery 03/23/21 documented as of this encounter
--- OUTSIDE RECORDS SUMMARY | 2024-05-22 16:35 | XMS_ITS | Encounter Summary ---
Author Organization [facility] Address [address] [place] [address] Care Team Providers Care Auto Technician Name Role Phone Sydnee Miranda DO Primary Care Pro vider Unavailable Jonas Cano MD Primary Care Provider Unavailab Virginia Ibarra MD Primary Care Provider Unavail able Sydnee Miranda DO Primary Care Pro vider Unavailable Jonas Cano MD Primary Care Provider Unavailab Francisco Mobley MD Unavailable [phone] Sekou Griffith MD Primary Care Provider UnavaJakub Hooks MD, PHD Unavailable Unava ilJuan Starkey PA-C Unavailable [phone] Padmaja Arenas MD Primary Care Provider [phone] Reason for Visit * Reason Onset Date Comments Urine Drug Screen 06/02/2015 Encounter Details Date Type Department Care Team Description 06/02/2015 Telephone Adult [address] [address] Sydnee Miranda DO Urine Drug Screen Social [...] Miscellaneous Notes * Telephone Encounter - Wendy Bernard M.A. - 06/04/2015 1:12 PM EDT Pt came into the lab for uds * Telephone Encounter - Wendy Bernard M.A. - 06/02/2015 3:29 PM EDT Pt advised she needs to report the the lab within 24 hours for UDS documented in this encounter Plan of Treatment Not on file documented as of this encounter Results * ASSAY, DIHYDROCODEINONE (06/03/2015 3:46 PM EDT) HYDROCODONE UR GCMS Negative . ng/mL 06/09/2015 8:47 AM EDT [facility] HYDROMORPHONE UR GCMS Negative . ng/mL 06/09/2015 8:47 AM EDT [facility] Comment: Performed at: ??[facility] [address] ??[id number] Director Global Development: Jorje Portillo MD, Phone: ??[phone] 06/03/2015 3:46 PM EDT 06/03/2015 3:47 PM EDT [employer] DO LAB Performing Organization Address City/[facility]/ZIP Co de Phone Number [facility] * OXYCODONE, URINE (06/03/2015 3:46 PM EDT) URINE OXYCODONE LEVEL NEGATIVE NEGATIVE 06/03/2015 4:59 PM EDT [facility] 06/03/2015 3:46 PM EDT 06/03/2015 3:47 PM EDT SydneeAcustom Apparelluis daniel Dweho DO LAB [facility] [address] [place] [address] * DRUG OF ABUSE SCREEN (06/03/2015 3:46 PM EDT) AMPHETAMINE, URINE NEGATIVE NEGATIVE 06/03/2015 4:59 PM EDT [facility] BARBITURATES, URINE NEGATIVE NEGATIVE 06/03/2015 4:59 PM EDT [facility] BENZODIAZEPINE , URINE NEGATIVE NEGATIVE 06/03/2015 4:59 PM EDT [facility] COCAINE, URINE NEGATIVE NEGATIVE 06/03/2015 4:59 PM EDT [facility] OPIATES, URINE NEGATIVE NEGATIVE 06/03/2015 4:59 PM EDT [facility] MARIJUANA(THC) , URINE NEGATIVE NEGATIVE 06/03/2015 4:59 PM EDT [facility] 06/03/2015 3:46 PM EDT 06/03/2015 3:47 PM EDT Sydnee Dang DO LAB Performing Organization Address City/State/[facility] de Phone Number [facility] [address] [facility] documented in this encounter Visit Diagnoses Diagnosis Encounter for long-term (current) use of other high-risk medications- Primary Encounter for long-term (current) use of other medications documented in this encounter Care Teams Auto Technician Relationship Specialty Start Date End Date [...] Internal Medicine 10/06/20 08/12/21 Padmaja Arenas MD [address] [place] [address] PCP - General Internal Medicine 08/13/21 Francisco Winter MD Specialist Cardiology 09/29/20 Jakub Akers MD, PHD Specialist Neurosurgery 03/23/21 Juan Hammond PA-C [address] [place] [address] Specialist Neurosurgery 03/23/21 documented as of this encounter
--- OUTSIDE RECORDS SUMMARY | 2024-05-22 16:35 | XMS_ITS | Encounter Summary ---
Author Organization [facility] Address [address] [place] [address] Care Team Providers Care Instructor Bus Trolley And Taxi Name Role Phone Sydnee Miranda DO Primary Care Pro vider Unavailable Jonas Cano MD Primary Care Provider Unavailab Virginia Ibarra MD Primary Care Provider Unavail able Sydnee Miranda DO Primary Care Pro vider Unavailable Jonas Cano MD Primary Care Provider Unavailab Francisco Mobley MD Unavailable Sekou Griffith MD Primary Care Provider Unavai Jakub Hahn MD, PHD Unavailable Unava ilable Juan Hammond PA-C Unavailable [phone] Padmaja Arenas MD Primary Care Provider [phone] Encounter Details Date Type Department Care Team Description 04/17/2015 Rabbit Fancier Report Medical Records [address] [place] [id number] Kaden Bertrand MD Social History Tobacco Use [...] on filedocumented in this encounter Care Teams Instructor Bus Trolley And Taxi Relationship Specialty Start Date End Date Sydnee [...] Medicine 10/06/20 08/12/21 Padmaja Arenas MD [address] [place] [address] PCP - General Internal Medicine 08/13/21 Francisco Winter MD Specialist Cardiology 09/29/20 Jakub Akers MD, PHD Specialist Neurosurgery 03/23/21 Juan Hammond PA-C [address] [place] [address] Specialist Neurosurgery 03/23/21 documented as of this encounter
--- OUTSIDE RECORDS SUMMARY | 2024-05-22 16:35 | XMS_ITS | Encounter Summary ---
Author Organization [facility] Address [address] [place] [address] Care Team Providers Care Bronze Chaser Name Role Phone Jonas Cano MD Primary Care Provider Unavailab Francisco Mobley MD Unavailable [phone] Sekou Griffith MD Primary Care Provider LeighvaJakub Hooks MD, PHD Unavailable Unava ilable Juan Hammond PA-C Unavailable [phone] Padmaja Arenas MD Primary Care Provider [phone] Encounter Details Date Type Department Care Team Description 07/29/2020 SCAN Medical Records [address] [place] [address] Abstract, Provider Social History Tobacco Use Types [...] on filedocumented in this encounter Care Teams Bronze Chaser Relationship Specialty Start Date End Date Jonas Cano MD PCP - General Internal Medicine 06/17/20 10/05/20 Sekou Griffith MD PCP - General Internal Medicine 10/06/20 08/12/21 Padmaja Arenas MD [address] [place] [address] [place] [address] [id number] PCP - General Internal Medicine 08/13/21 Francisco Winter MD Specialist Cardiology 09/29/20 Jakub Akers MD, PHD Specialist Neurosurgery 03/23/21 Juan Hammond PA-C [address] [place] [address] Specialist Neurosurgery 03/23/21 documented as of this encounter
--- OUTSIDE RECORDS SUMMARY | 2024-05-22 16:35 | XMS_ITS | Encounter Summary ---
Author Organization [facility] Address [address] [place] [address] Care Team Providers Care Sealing Machine Operator Name Role Phone Sydnee Miranda DO Primary Care Pro vider Unavailable Jonas Cano MD Primary Care Provider Unavailab Virginia Ibarra MD Primary Care Provider Unavail able Sydnee Miranda DO Primary Care Pro vider Unavailable Jonas Cano MD Primary Care Provider Unavailab Francisco Mobley MD Unavailable [phone] Sekou Griffith MD Primary Care Provider UnavaJakub Hooks MD, PHD Unavailable Unava ilJuan Starkey PA-C Unavailable [phone] Padmaja Arenas MD Primary Care Provider [phone] Encounter Details Date Type Department Care Team Description 06/24/2015 Telephone Adult [address] [address] Sydnee Miranda DO Social History Tobacco Use [...] Telephone Encounter - Wendy Bernard M.A. - 06/24/2015 1:40 PM EDT Message left asking pt to call our office back [phone] documented in this encounter Plan of Treatment Not on file documented as of this encounter Visit Diagnoses Not on filedocumented in this encounter Care Teams Sealing Machine Operator Relationship Specialty Start Date End [...] Internal Medicine 10/06/20 08/12/21 Padmaja Arenas MD [address] [place] [address] PCP - General Internal Medicine 08/13/21 Francisco Winter MD Specialist Cardiology 09/29/20 Jakub Akers MD, PHD Specialist Neurosurgery 03/23/21 Juan Hammond PA-C [address] [place] [address] Specialist Neurosurgery 03/23/21 documented as of this encounter
--- OUTSIDE RECORDS SUMMARY | 2024-05-22 16:35 | XMS_ITS | Clinical Summary ---
Author Organization [facility] Address [address] [place] [phone] Phone Care Team Providers Care Director Network Development Name Role Phone Padmaja Arenas MD Primary Care Provider [phone] Allergies Active Allergy Reactions Criticality Noted Date [...] Thistle 250 MG Cap-Take by mouth. Active methylsulfonylm ethane 500 mg capsule Take by mouth. Activ e miconazole nitrate 2 % aerosol,spray Apply 1 applicator topically. 3 Active diclofenac (VOLTAREN) 1 % topical gel Apply 4 g topically 2 (two) times a day. 2 Active NON FORMULARY 1 capsule. Misc Natural Products (BEE PROPOLIS OR)- Take 1 capsule by mouth daily. Active brompheniramine /pseudoephed/DM (BROMPHENIRAMIN J-IPGCNIANJ-DZ ORAL) Active aspirin 81 mg EC tablet Take 1 tablet (81 mg total) by mouth 1 (one) time each day. Active MAGNESIUM ORAL Take 400 mg by mouth at bedtime. Active POTASSIUM ORAL Potassium 99 MG Tab-Take by mouth. 5-600 mg Active Lactobacillus acidophilus (PROBIOTIC ORAL) Probiotic Product (PROBIOTIC ACIDOPHILUS [employer]) Cap-Take 3 capsules by mouth daily. Active [...] Take by mouth. 1 caps daily Active glucosamine/D3/ boswellia marilyn (GLUCOSAMINE DAILY COMPLEX ORAL) Boswellia-Gluco samine-Vit D (GLUCOSAMINE COMPLEX) Tab-Take by mouth. 1500/1000mg daily Active ANN MARIE ROOT EXTRACT ORAL Ann Marie, Zingiber officinalis, (ANN MARIE ROOT OR)- Take 540 mg by mouth. 1-2 daily Active ibuprofen (ADVIL,MOTRIN) 50 mg tablet Take 800 mg by mouth 2 times daily as needed. Active clindamycin (CLEOCIN T) 1 % lotion Apply topically 2 (two) times a day. Sig: Apply thin layer to face daily prn 60 mL 2 5 Active Synthroid 100 mcg tablet TAKE 1 TABLET BY MOUTH DAILY 90 tablet 1 5 Active baclofen (LIORESAL) 10 mg tablet Take 1 tablet (10 mg total) by mouth at bedtime as needed for muscle spasms. 30 tablet 1 5 Active baclofen (LIORESAL) 10 mg tablet Take 1 tablet (10 mg total) by mouth at bedtime as needed for muscle spasms. 30 tablet 1 5 025 Discontin ued(Reord er) Active Problems Problem Noted Date Diagnosed Date Pain in both hands 04/11/2024 Fibromyalgia 11/08/2023 Overview (11/08/2023): Amitriptyline, trazodone not tolerated Cyclobenzaprine - caused falls Gabapentin - falling Hypothyroidism 11/08/2023 Assessment & Plan (02/23/2024 10:45 PM EST): Osteoarthritis 11/08/2023 Morbid obesity with BMI of 4 0.0-44.9, adult (CMS/[facility] V24, CMS/[facility] V28) 11/08/2023 Osteopenia 08/22/2023 Assessment & Plan (02/23/2024 10:45 [...] Care Team Description 05/01/2024 Telephone Orthopedic Surgery - [place] [address] [facility] [address] [place] [address] Liliana Good PA 04/11/2024 2:15 PM EST Evaluation [facility] Occupational Therapy [address] [facility] [address] [place] [address] Yulia Barnes OT Pain in both hands 04/11/2024 Plan of Care Documentation [facility] Occupational Therapy [address] [facility] [address] [place] [address] 03/13/2024 3:00 PM EST Office Visit Orthopedic Surgery - [place] [address] [facility] [address] [place] [address] Liliana Good PA Pain in both hands 02/23/2024 2:30 PM EST Office Visit Internal Medicine - [place] [address] [facility] [address] [place] [address] Padmaja Arenas MD Pain in both hands (Primary [...] KNEE SURGERY; COMMENT: left BREAST BIOPSY PROCEDURE: MD BIOPSY BREAST OPEN INCISIONAL; COMMENT: left CYSTOSCOPY PROCEDURE: MD CYSTOURETHROSCOPY TONSILLECTOMY PROCEDURE: HISTORICAL TONSILLECTOMY Medical History [...] History of mammogram DX:History of mammogram; COMMENT: [facility], no report in 2019 History [...] obesity with BMI of 4 0.0-44.9, adult (CMS/HCC V24, CMS/HCC V28) 05/18/2021 DX:Morbid obesity wit h BMI of 40.0-44.9, adult (HCC) Family History Medical History [...] PM EDT Office Visit Internal Medicine - [address] [place] [address] Padmaja Arenas MD [address] [place] [address] Health Maintenance Due Date Last Done Comments Breast Cancer Screening 1955 Zoster Vaccines (1 of 2) 05/04/2007 RSV Immunization Adult Patients (1 - Risk 60-74 years 1-dose series) 2017 Colorectal Cancer Screening: Colonoscopy 01/15/2022 Social Influencers of Health Screening 01/15/2022 COVID-19 Vaccine (1 - 2023-2 5 season) 2023 Hypertension/CHF/CAD Annual BMP Blood Test 08/21/2024 08/22/2023, 08/22/2023 Influenza Vaccine (Season Ended) 2024 DTaP,Tdap,and Td Vaccines (2 - Td or [...] INTO DAILY REGIME # 2 IMPROVE LEFT STATE AUDITOR FROM 28 TO 35 POUNDS # 3 IMPROVE RIGHT WRIST EXTENSION FROM 45 TO 55 DEGREES # 4 IMPROVE LEFT WRIST EXTENSION FROM 30 TO 45 DEGREES Procedures Procedure Name Priority Date/Time Associated Diagnosis Comments EXTERNAL CLINICAL LAB 05/14/2024 XR WRIST 3+ VIEWS BILAT Routine 03/13/2024 3:45 PM EST Pain in both hands ANNUAL BMP BLOOD TEST Routine 08/22/2023 FALLS RISK ASSESSMENT Routine 08/22/2023 LIPID PANEL Routine 08/22/2023 [facility] DEXA AXIAL SKELETON Routine 04/26/2023 4:03 PM EDT Encounter for screening for osteoporosis DEPRESSION SCREENING Routine 02/21/2023 HEPATITIS C SCREENING Routine 01/18/2014 from Last 3 Months or Most Recently Relevant to Health Maintenance Results * External clinical lab (05/14/2024) us Provider [facility] LAB BLOOD ORDERABLES Fin al Result * XR Wrist 3+ Views bilat (03/13/2024 [...] findings Impression: Mild arthritic changes bilateral wrists Liliana MEJIA IMG XR PROCEDURES Final Resul t * Annual BMP Blood Test (08/22/2023) Pathologist [facility] Annual BMP Blood Test abstracted Historical Provider HEALTH MAINTENANCE Final Result * Falls Risk Assessment (08/22/2023) [facility] Falls Risk Assessment abstracted Historical Provider HEALTH MAINTENANCE Final Result * (ABNORMAL) Lipid panel (08/22/2023) [facility] LDL/HDL Ratio 4 0 - 4 Triglycerides 76 0 - 150 mg/dL Cholesterol 248(A) 0 - 200 mg/dL HDL 68 >=40 mg/dL LDL Cholesterol 165(A) 0 - 100 mg/dL Blood Venous blood specimen / Unknown Result [facility] Historical Provider LAB BLOOD ORDERABLES Jessica l Result * TRAE DEXA AXIAL SKELETON (04/26/2023 4:03 PM EDT) Anatomical Region Laterality Modality Mammography 04/26/2023 1:03 PM EDT Narrative 04/26/2023 4:03 PM EDT [facility] Diagnostic Imaging Department [address] [place] [address] Patient: ??PAUL GONZALES ?/Age/Sex: 1955 - 67 - F Unit#: ??[id number] ? Location/Status: ??SPDIMAM/REG CLI ? Mnemonic/Ordering Site: ??MAMDEXAAX/SPMAM Ordering Physician: ??PADMAJA ARENAS MD Trae Dexa Axial Skeleton - 04/26/23 - 1343 Report Status:Signed History: Low estrogen state due to menopause. Comparison: No comparison studies. Findings: Bone densitometry is performed utilizing dual energy x-ray absorptiometry (DXA) in the [employer] unit. The lumbar spine and proximal femora [...] 8.6 percent Hip 1.1 percent. IMPRESSION: Osteopenia. [id number] Dictating Physician: ??RADHA ANTUNEZ MD Electronically Signed by: ??RADHA ANTUNEZ MD Dic Date/Time: ??04/26/23 1602 Sign date/Time: ??04/26/23 1603 Procedure Note Radha Antunez MD - 09/25/2023 [facility] Diagnostic Imaging Department [address] [place], [place] [id number] Patient: PAUL GONZALES /Age/Sex: 1955 - 67 - F Unit#: [id number] Location/Status: SPDIMAM/REG CLI Mnemonic/[facility]ing [facility] Ordering Physician: PADMAJA ARENAS MD [facility] Dexa Axial Skeleton - 04/26/23 - 1343 Report Status:Signed History: Low estrogen state due to menopause. Comparison: No comparison studies. Findings: Bone densitometry is performed utilizing dual energy x-ray absorptiometry(DXA) in the [employer] unit. The lumbar spine and proximal femora [...] Osteoporotic 8.6percent Hip 1.1 percent. IMPRESSION: Osteopenia. [id number] Dictating Physician: RADHA ANTUNEZ MD Electronically Signed by: RADHA ANTUNEZ MD Dic Date/Time: 04/26/23 1602 Sign date/Time: 04/26/23 1603 Padmaja Arenas MD IMG BI PROCEDURES Final Result * Depression Screening (02/21/2023) [facility] Depression Screening abstracted Historical Provider HEALTH MAINTENANCE Final Result * Hepatitis C Screening (01/18/2014) [facility] Hepatitis C Screening abstracted Historical Provider HEALTH MAINTENANCE Final Result from Last 3 Months or Most Recently Relevant to Health Maintenance Insurance MEDICAID - [place] MEDICARE Care Teams Director Network Development Relationship Specialty Start Date End Date Padmaja Arenas MD [address] [place] [phone] PCP - General Internal Medicine 08/13/21
--- OUTSIDE RECORDS SUMMARY | 2024-05-22 16:35 | XMS_ITS | Encounter Summary ---
Author Organization [facility] Address [address] [place] [address] Care Team Providers Care Street Flusher Driver Name Role Phone Sydnee Miranda DO Primary Care Pro vider Unavailable Jonas Cano MD Primary Care Provider Unavailab Francisco Mobley MD Unavailable [phone] Sekou Griffith MD Primary Care Provider Jakub Wilson MD, PHD Unavailable Unava ilJuan Starkey PA-C Unavailable [phone] Padmaja Arenas MD Primary Care Provider [phone] Encounter Details Date Type Department Care Team Description 01/16/2019 Alteration Hand Report Medical Records [address] [place] [id number] Juliet Porter MD Social History Tobacco Use [...] on filedocumented in this encounter Care Teams Street Flusher Driver Relationship Specialty Start Date End Date Sydnee Miranda DO PCP - General Internal Medicine 12/25/17 06/16/20 Jonas Cano MD PCP - General Internal Medicine 06/17/20 10/05/20 Sekou Griffith MD PCP - General Internal Medicine 10/06/20 08/12/21 Padmaja Arenas MD [address] [place] [address] PCP - General Internal Medicine 08/13/21 Francisco Winter MD Specialist Cardiology 09/29/20 Jakub Akers MD, PHD Specialist Neurosurgery 03/23/21 Juan Hammond PA-C [address] [place] [address] Specialist Neurosurgery 03/23/21 documented as of this encounter
== END 2024-05-22 13:51 | disposition home or self-care (01) ==
LOC: HO.HMGCX 13:50
PROVIDERS: PCP Internal Medicine; Visit Provider Internal Medicine Rheumatology
DX: M54.2 Cervicalgia (principal); M54.9 Dorsalgia, unspecified
CPT/HCPCS: 72040; 72070; 72100; 72202

== ENCOUNTER → 2024-05-22 13:59 | Outpatient (BNV) | payer MEDICARE, MEDICAID, SELFPAY | PROVIDERS: PCP Internal Medicine; Visit Provider Specialist | DX: M54.2 Cervicalgia (principal); M54.9 Dorsalgia, unspecified | CPT/HCPCS: 72040; 72070; 72100; 72202 ==

== ENCOUNTER 2024-07-04 13:52 | Outpatient (AMB) | payer MEDICARE, MEDICAID, SELFPAY ==
[2024-07-04 13:52] VITALS: BP 130/80; PULSE 65; O2SAT 98; BMI 41.9
--- NOTE | 2024-07-04 13:52 | MHC.OFFVIS ---
Vital Signs 07/04/24 13:52 Height 5 ft 2.5 in Weight 233 lb 0.8 oz BMI 41.9 BP 130/80 Blood Pressure Location Lt brachial Position Sitting Pulse 65 Pulse Source Pulse Oximeter Pulse Oximetry (%) 98 Oxygen Delivery Method Room Air Intake Visit Reasons: 1-2 months Intake Note: Patient presents today for osteoarthritis. Accompanied by: Self / Same As Patient Allergies metronidazole Allergy (Intermediate, Verified 07/04/24 13:57) cellulitis atorvastatin Allergy (Mild, Verified 07/04/24 13:55) fluid retention erythromycin base Allergy (Mild, Verified 07/04/24 13:55) Stomach Upset lactose Allergy (Mild, Verified 07/04/24 13:55) Stomach Upset latex Allergy (Mild, Verified 07/04/24 13:55) Itching Sulfa (Sulfonamide Antibiotics) Allergy (Mild, Verified 07/04/24 13:55) Nausea zolpidem [From Ambien] Allergy (Mild, Verified 07/04/24 13:55) Unknown house dust Allergy (Unknown, Verified 07/04/24 13:55) Unknown HPI HPI 1-2 months: Details: She continues to have neck and back pain with stiffness. She is recovering from right dorsal hand cellulitis secondary to cat bite. She is on 14 day course of antibiotic. She has been avoiding Tylenol due to transaminitis and uses ibuprofen as needed for joint pain. She has gone to physical therapy on multiple occasions but it has caused increased pain. She was unable to complete PT due to uncontrolled pain. [facility] Medical History Osteoarthritis Fibromyalgia Epicondylitis, lateral Bilateral carpal tunnel syndrome Memory deficit Varicose veins of both lower extremities Dyslipidemia LVH (left ventricular hypertrophy) Bilateral carotid artery stenosis Obesity Surgical History H/O left breast biopsy Hx of tonsillectomy H/O: knee surgery H/O cystoscopy Physical Exam Vital Signs: Last Vital Signs Pulse 65 07/04/24 13:52 BP 130/80 07/04/24 13:52 Pulse Ox 98 07/04/24 13:52 Oxygen Delivery Method Room Air 07/04/24 13:52 BMI result Body Mass Index 41.9 Const Other: General: Comfortable Skin: No lesions seen MSK: Heberden's nodes present. No synovitis. No dactylitis. She has tenderness of thoracic and lumbar spinous process. Normal range of motion of cervical spine. Normal flection of lumbar spine. Assessment & Plan Assessment & Plan (1) Back pain: Comment: Chronic due to diffuse degenerative joint disease. 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 Recent x-rays of C-spine, T-spine and L-spine reveal multilevel degenerative disc disease with osteophytes throughout spine. SI joint x-ray is normal. There is no radiographic finding of axial inflammatory arthritis. She is HLA B27 negative with normal inflammatory markers. Low clinical suspicion for ankylosing spondylitis contributing to her pain. We discussed next steps to treat her pain. She has had side effects to cortisone injections in the past. She is not interested in considering radiofrequency ablation. Physical therapy causes increased pain. At this time due to mild transaminitis (ALT 33, normal 5-31) she is avoiding Tylenol and can only tolerate low-dose ibuprofen as needed for pain control. She is unable to participate in aquatic therapy because she can not tolerate chlorine. Code(s): M54.9 - Dorsalgia, unspecified Category: Medical Qualifiers: Back pain location: back pain in other location Chronicity: chronic Qualified Code(s): M54.89 - Other dorsalgia; G89.29 - Other chronic pain Plan: Try lidocaine patch applied to neck/back Continue to apply heat to back daily Continue home exercise routine. Consider TENs unit - she may benefit from PT for TENs unit trial, which can be purchased for home use from [employer] Continue ibuprofen 400 mg or aspirin PRN for pain control I will recheck liver function tests after she completes antibiotic next month. If she continues to have transaminitis, she will need PCP follow-up for further workup with consideration of ultrasound liver with elastography. If transaminitis has resolved, she can resume Tylenol. PCP follow-up for chronic pain management: She may benefit from Journavx (suzetrigine), a new non-opioid pain medication, which can be used with NSAIDs for pain control. Gabapentin is another option for patient. Return to clinic PRN Orders: Orders Alanine Aminotransferase 21 Days Z79.60 - tank terminal gauger (current) use of unspecified immunomodulators and immunosuppressants Aspartate Amino Transferase 21 Days Z79.60 - tank terminal gauger (current) use of unspecified immunomodulators and immunosuppressants Coding Level of Care Code Est Pt Level 4 (18529) Complex EM visit Add On G2211 Diagnoses Other chronic back pain M54.89; G89.29 Back pain location: back pain in other location Chronicity: chronic
== END 2024-07-04 14:31 | disposition home or self-care (01) ==
LOC: HO.RHES 13:53
PROVIDERS: PCP Internal Medicine; Visit Provider Internal Medicine Rheumatology
DX: M54.89 Other dorsalgia (principal); G89.29 Other chronic pain
CPT/HCPCS: 99214; G2211

== ENCOUNTER → 2024-07-04 13:52 | Outpatient (BNVA) | payer MEDICARE, MEDICAID, SELFPAY | PROVIDERS: PCP Internal Medicine; Visit Provider Internal Medicine Rheumatology | DX: M54.89 Other dorsalgia (principal); G89.29 Other chronic pain | CPT/HCPCS: 99212 ==

== ENCOUNTER 2024-08-02 15:05 | Outpatient (REF) | payer MEDICARE, MEDICAID, SELFPAY ==
[2024-08-02 17:41] LABS: Alanine Aminotransferase 38 U/L (0-31); Aspartate Amino Transferase 28 U/L (5-31)
== END 2024-08-02 15:06 | disposition home or self-care (01) ==
LOC: HO.HKASLDS 15:05
PROVIDERS: Visit Provider Internal Medicine Rheumatology
DX: Z79.899 Other long term (current) drug therapy (principal)
CPT/HCPCS: 36415; 84450; 84460